=== PATIENT | female | born 1970 | race Caucasian/White ===

== ENCOUNTER 2018-09-06 18:29 | Outpatient (REF) | payer SELFPAY ==
[2018-09-06 21:20] LABS: Abs Immature Grans 0.02 k/cumm (0.0-0.09); Absolute Basophil Count 0.03 k/cumm (0.0-0.2); Absolute Eosinophil Count 0.19 k/cumm (0.0-0.7); Absolute Lymphocyte Count 3.27 k/cumm (1.2-3.4); Absolute Monocyte Count 0.74 k/cumm (0.11-0.7); Basophils % 0.3; Eosinophils % 1.7; HCT 37.4 % (36.0-46.0); HGB 12.3 g/dL (12.0-15.5); Immature Grans % 0.2; Mean Corp. HGB Concentration 32.9 g/dL (32.0-36.0); Mean Corpuscular Hemoglobin 26.2 pg (27.0-33.0); Mean Corpuscular Volume 79.7 fL (80-95); Mean Platelet Volume 10.1 fL (8.0-11.0); Monocytes % 6.6; Neutrophils % 62.2; Platelet Count 371 x1000/uL (130-400); RBC 4.69 m/cumm (4.00-5.20); RBC Distribution Width 13.7 % (11.7-14.6); White Blood Cell Count 11.26 k/cumm (4.4-10.8)
[2018-09-06 21:47] LABS: ALT 23 U/L (12-78); AST 12 U/L (15-37); Albumin 3.6 g/dL (3.4-5.0); Alkaline Phosphatase 100 U/L (46-116); Anion Gap 7.8 mmol/L (3-11); BUN 15 mg/dL (7-18); Bilirubin, Total 0.3 mg/dL (0.2-1.0); CO2 28.2 mmol/L (21.0-32.0); CREATININE 0.97 mg/dL (0.55-1.02); Calcium 9.1 mg/dL (8.5-10.1); Chloride 99 mmol/L (98-107); Cholesterol 163 mg/dL (50-200); Glucose 238 mg/dL (70-100); HDL Cholesterol 47 mg/dL (40-60); LDL CHOLESTEROL 80 mg/dL (<100); Potassium 3.9 mmol/L (3.5-5.1); Sodium 135 mmol/L (136-145); TSH (W/Ref FT4) 2.48 uIU/mL (0.358-3.74); Total Protein 7.6 g/dL (6.4-8.2); Triglyceride 205 mg/dL (30-150)
[2018-09-10 11:24] LABS: FSH 7.2 mIU/ml; LH 5.6 mIU/ml
== END 2018-09-06 18:49 ==
LOC: NCHCN 18:29
PROVIDERS: PCP Family Medicine; Visit Provider Family Medicine
DX: E11.9 Type 2 diabetes mellitus without complications (principal); I10 Essential (primary) hypertension; Z00.00 Encounter for general adult medical examination without abnormal findings
CPT/HCPCS: 80053; 80061; 83721; 83001; 83002; 84443; 85025

== ENCOUNTER 2019-04-16 16:30 | Outpatient (REF) | payer BC, SELFPAY ==
[2019-04-16 21:59] LABS: Microalb ug/mg Crea 2.9 ug/mg Cr
== END 2019-04-16 16:50 ==
LOC: NCHCN 16:30
PROVIDERS: PCP Nurse Practitioner Family; Visit Provider Nurse Practitioner Family
DX: E11.9 Type 2 diabetes mellitus without complications (principal); I10 Essential (primary) hypertension
CPT/HCPCS: 82043; 82570

== ENCOUNTER 2019-05-13 14:56 | Outpatient (REF) | payer BC, SELFPAY ==
[2019-05-13 21:23] LABS: HCT 28.2 % (36.0-46.0); HGB 8.5 g/dL (12.0-15.5); Mean Corp. HGB Concentration 30.1 g/dL (32.0-36.0); Mean Corpuscular Hemoglobin 24.1 pg (27.0-33.0); Mean Corpuscular Volume 79.9 fL (80-95); Mean Platelet Volume 10.3 fL (8.0-11.0); Platelet Count 428 x1000/uL (130-400); RBC 3.53 m/cumm (4.00-5.20); RBC Distribution Width 14.8 % (11.7-14.6); White Blood Cell Count 7.96 k/cumm (4.4-10.8)
== END 2019-05-13 15:16 ==
LOC: NCHCN 14:56
PROVIDERS: PCP Nurse Practitioner Family; Visit Provider Nurse Practitioner Family
DX: N93.8 Other specified abnormal uterine and vaginal bleeding (principal); D50.9 Iron deficiency anemia, unspecified
CPT/HCPCS: 85027

== ENCOUNTER 2019-07-16 18:00 | Outpatient (REF) | payer BC, SELFPAY ==
[2019-07-16 21:35] LABS: HCT 37.8 % (36.0-46.0); HGB 11.5 g/dL (12.0-15.5); Mean Corp. HGB Concentration 30.4 g/dL (32.0-36.0); Mean Corpuscular Hemoglobin 23.4 pg (27.0-33.0); Mean Corpuscular Volume 76.8 fL (80-95); Mean Platelet Volume 10.1 fL (8.0-11.0); Platelet Count 409 x1000/uL (130-400); RBC 4.92 m/cumm (4.00-5.20); RBC Distribution Width 15.4 % (11.7-14.6); White Blood Cell Count 7.74 k/cumm (4.4-10.8)
[2019-07-16 22:40] LABS: Hemoglobin A1C 8.3 % (4.5-6.2)
[2019-07-16 23:03] LABS: Iron 26 ug/dL (50-175)
[2019-07-16 23:30] LABS: TSH 1.64 uIU/mL (0.36-3.74); Vitamin B12 825 pg/mL (193-986)
== END 2019-07-16 18:20 ==
LOC: NCHCO 18:00
PROVIDERS: PCP Nurse Practitioner Family; Visit Provider Nurse Practitioner Family
DX: E11.9 Type 2 diabetes mellitus without complications (principal); I10 Essential (primary) hypertension; D50.9 Iron deficiency anemia, unspecified
CPT/HCPCS: 85027; 82607; 83036; 83540; 84443

== ENCOUNTER 2019-10-22 00:41 | Outpatient (REF) | payer OTHER, SELFPAY | END 2019-10-22 01:01 | LOC: NCHCN 00:41 | PROVIDERS: PCP Nurse Practitioner Family; Visit Provider Nurse Practitioner Family | DX: J02.9 Acute pharyngitis, unspecified (principal) | CPT/HCPCS: 87070 ==

== ENCOUNTER 2020-04-30 13:35 | Outpatient (REF) | payer OTHER, SELFPAY ==
[2020-04-30 20:38] LABS: HCT 39.7 % (36.0-46.0); HGB 12.3 g/dL (11.2-15.7); MCH 26.1 pg (27.0-33.0); MCV 84.3 fL (80-95); MPV 10.1 fL (8.0-11.0); Platelet Count 354 10^3/uL (130-400); RBC 4.71 10^6/uL (3.93-5.22); RDW 13.4 % (11.7-14.6); RDW-SD 41.2 fL; WBC 8.97 10^3/uL (4.4-10.8)
[2020-04-30 20:52] LABS: Anion Gap 8.6 mmol/L (3-11); BUN 7 mg/dL (7-18); CO2 30.4 mmol/L (21.0-32.0); CREATININE 0.79 mg/dL (0.55-1.02); Calcium 9.3 mg/dL (8.5-10.1); Chloride 102 mmol/L (98-107); Glucose 112 mg/dL (74-106); Potassium 4.3 mmol/L (3.5-5.1); Sodium 141 mmol/L (136-145)
[2020-04-30 21:20] LABS: Hemoglobin A1C 7.1 % (<5.7)
== END 2020-04-30 13:55 ==
LOC: NCHCN 13:35
PROVIDERS: PCP Nurse Practitioner Family; Visit Provider Nurse Practitioner Family
DX: E11.9 Type 2 diabetes mellitus without complications (principal); I10 Essential (primary) hypertension
CPT/HCPCS: 80048; 85027; 83036

== ENCOUNTER 2020-07-14 13:06 | Outpatient (REF) | payer OTHER, SELFPAY ==
[2020-07-14 21:41] LABS: COMMENT (LAB VIEW ONLY) 98.07 mg/dL; Microalb ug/mg Crea 4.6 ug/mg Cr
== END 2020-07-14 13:26 ==
LOC: NCHCN 13:06
PROVIDERS: PCP Nurse Practitioner Family; Visit Provider Nurse Practitioner Family
DX: E11.9 Type 2 diabetes mellitus without complications (principal); E66.9 Obesity, unspecified; I10 Essential (primary) hypertension; F41.8 Other specified anxiety disorders
CPT/HCPCS: 82043; 82570

== ENCOUNTER 2021-10-12 15:19 | Outpatient (REF) | payer OTHER, SELFPAY ==
[2021-10-12 21:23] LABS: BUN 13 mg/dL (7-18); CREATININE 0.9 mg/dL (0.55-1.02); Calcium 8.9 mg/dL (8.5-10.1); Chloride 101 mmol/L (98-107); Glucose 223 mg/dL (74-106); Potassium 4.2 mmol/L (3.5-5.1); Sodium 137 mmol/L (136-145)
[2021-10-12 21:25] LABS: COMMENT (LAB VIEW ONLY) 316.45 mg/dL; Microalb ug/mg Crea 5.4 ug/mg Cr
[2021-10-12 21:36] LABS: HCT 37.9 % (36.0-46.0); HGB 11.1 g/dL (11.2-15.7); MCH 22.2 pg (27.0-33.0); MCHC 29.3 % (32.0-36.0); MPV 9.9 fL (8.0-11.0); Platelet Count 385 10^3/uL (130-400); RBC 4.99 10^6/uL (3.93-5.22); RDW 14.6 % (11.7-14.6); RDW-SD 39.6 fL; WBC 8.75 10^3/uL (4.4-10.8)
[2021-10-12 21:55] LABS: Hemoglobin A1C 10.5 % (<5.7)
== END 2021-10-12 15:20 | disposition home or self-care (01) ==
LOC: NCHCN 15:19
PROVIDERS: PCP Nurse Practitioner Family; Visit Provider Nurse Practitioner Family
DX: E11.9 Type 2 diabetes mellitus without complications (principal); I10 Essential (primary) hypertension; D50.9 Iron deficiency anemia, unspecified; M54.59 Other low back pain
CPT/HCPCS: 80048; 85027; 82043; 82570; 83036

== ENCOUNTER 2021-12-28 20:22 | Outpatient (REF) | payer OTHER, SELFPAY ==
[2021-12-30 11:44] LABS: COVID-19 RT-PCR UVMMC Result Negative (Negative)
== END 2021-12-28 20:23 | disposition home or self-care (01) ==
LOC: NCHCN 20:22
PROVIDERS: PCP Nurse Practitioner Family; Visit Provider Nurse Practitioner Family
DX: J06.9 Acute upper respiratory infection, unspecified (principal); Z20.822 Contact with and (suspected) exposure to COVID-19
CPT/HCPCS: U0003

== ENCOUNTER 2022-08-01 16:06 | Outpatient (REF) | payer OTHER, SELFPAY ==
[2022-08-01 22:05] LABS: COMMENT (LAB VIEW ONLY) 206.18 mg/dL; Microalb ug/mg Crea 2.4 ug/mg Cr
== END 2022-08-01 16:07 | disposition home or self-care (01) ==
LOC: NCHCN 16:06
PROVIDERS: PCP Nurse Practitioner Family; Visit Provider Nurse Practitioner Family
DX: E11.9 Type 2 diabetes mellitus without complications (principal)
CPT/HCPCS: 82043; 82570

== ENCOUNTER 2023-02-06 16:48 | Outpatient (REF) | payer OTHER, SELFPAY ==
--- OUTSIDE RECORDS SUMMARY | 2023-02-06 16:53 | XMS_ITS | CCD ---
Author Name Unknown Address [address] [place] [address] [phone] Organization Unknown Address [address] [place] [address] [phone] Care Team Providers Care Parquet Floor Layer Name Role Phone QAMAR URBAN Attending Physician [phone] JENNA ZARAGOZA Er Physician [phone] CARSON Sandhu Registered Nurse [phone] Vital Signs Vital Sign Value Unit Date/Time Recent/Initial ? BMI (Body Mass Index) 34.97 kg/m^2 10/13/2022 14: 39 Initial VS Weight Measured 230 lbs 10/13/2022 14:39 Ini tial VS Height 68 in 10/13/2022 14:39 Initial VS BSA (Body Surface Area) 2.24 m^2 10/13/2022 1 4:39 Initial VS BP Systolic 131 mmHg 10/13/2022 14:39 Initial VS BP Diastolic 75 mmHg 10/13/2022 14:39 Initia l VS Respiratory Rate 16 bpm 10/13/2022 14:39 In itial VS Heart Rate 67 bpm 10/13/2022 14:39 Initial VS O2 % BldC Oximetry 99 % 10/13/2022 14:39 Initial VS Body Temperature 36.4 degrees 10/13/2022 14:39 In itial VS BP Systolic 119 mmHg 10/13/2022 16:47 Most Re cent VS BP Diastolic 82 mmHg 10/13/2022 16:47 Most R ecent VS Respiratory Rate 18 bpm 10/13/2022 16:[address] Recent VS Heart Rate 60 bpm 10/13/2022 16:47 Most Rec ent VS O2 % BldC Oximetry 96 % 10/13/2022 16:47 Most Recent VS Body Temperature 36.7 degrees 10/13/2022 16:[address] Recent VS Allergies Allergy Code Allergy Type Reaction Status No Known Drug Allergies 0 No known drug allergies Active Procedures Unknown or Not Available. History of Immunizations Unknown or Not Available. Problems Problem Code Start Date Resolved Date Status Diabetes 08599039 Active High cholesterol 17524683 Active Anxiety 53150494 Active Results Unknown or Not Available. Active Medications Unknown or Not Available. Medications Administered During Visit Unknown or Not Available. Encounters Encounter Diagnosis Diagnosis Code Start Date Pain of left lower leg [id number] 3 Social History Smoking Status Code Start Date End Date Never smoker 304553754 Patient Decision Aids Unknown or Not Available. Discharge Instructions You were admitted to [facility] on 10/13/2022 14:30 with a principal diagnosis of Pain in left lower leg You were discharged from [facility] on 10/13/2022 16:50 Should you have any questions prior to discharge, please contact a member of your healthcare team. If you have left the hospital and have any questions, please contact your primary care physician. Chief Complaint and Reason For Visit Chief Complaint Date of Onset POTENTIAL BLOOD CLOT IN LEG 10/13/2022 Function Status Unknown or Not Available. Plan of Care Unknown or Not Available. Referral/Transition of Care Unknown or Not Available.
--- OUTSIDE RECORDS SUMMARY | 2023-02-06 16:54 | XMS_ITS | CCD ---
Author Name Unknown Address [address] [place] [address] [phone] Organization Unknown Address [address] [place] [address] [phone] Care Team Providers Care Router Setter Name Role Phone SHELBI BLANKENSHIP MD Attending Physician [phone] Vital Signs Unknown or Not Available. Allergies Unknown or Not Available. Procedures Unknown or Not Available. History of Immunizations Unknown or Not Available. Problems Problem Code Start Date Resolved Date Status Diabetes 45055237 Active High cholesterol 09511853 Active Anxiety 26305432 Active Results Unknown or Not Available. Active Medications Unknown or Not Available. Medications Administered During Visit Unknown or Not Available. Encounters Encounter Diagnosis Diagnosis Code Start Date Calcific tendinitis of right shoulder M7531 04/09/2021 Social History Smoking Status Code Start Date End Date Never smoker 840215309 Patient Decision Aids Unknown or Not Available. Discharge Instructions You were admitted to [facility] 01 on 04/09/2021 08:30 with a principal diagnosis of Calcific tendinitis of right shoulder You were discharged from [facility] 01 on 06/02/2021 11:33 Should you have any questions prior to discharge, please contact a member of your healthcare team. If you have left the hospital and have any questions, please contact your primary care physician. Chief Complaint and Reason For Visit Unknown or Not Available. Function Status Unknown or Not Available. Plan of Care Unknown or Not Available. Referral/Transition of Care Unknown or Not Available.
--- OUTSIDE RECORDS SUMMARY | 2023-02-06 16:54 | XMS_ITS | CCD ---
Author Name Unknown Address [address] [place] [address] [phone] Organization Unknown Address [address] [place] [address] [phone] Care Team Providers Care Leather Goods Sales Representative Name Role Phone SOULEYMANE NOGUEIRA Attending Physician [phone] SOULEYMANE NOGUEIRA Rounding (Secondary) Physician [phone] Vital Signs Unknown or Not Available. Allergies Allergy Code Allergy Type Reaction Status No Known Drug Allergies 0 No known drug allergies Active Procedures Unknown or Not Available. History of Immunizations Unknown or Not Available. Problems Problem Code Start Date Resolved Date Status Diabetes 97707049 Active High cholesterol 36971105 Active Anxiety 80632765 Active Results Unknown or Not Available. Active Medications Unknown or Not Available. Medications Administered During Visit Unknown or Not Available. Encounters Encounter Diagnosis Diagnosis Code Start Date Pain in right shoulder U18194 3 Social History Smoking Status Code Start Date End Date Never smoker 594603986 Patient Decision Aids Unknown or Not Available. Discharge Instructions You were admitted to [facility] on 11/07/2022 11:20 with a principal diagnosis of Pain in right shoulder You were discharged from [facility] on 11/07/2022 00:00 Should you have any questions prior to [...]
--- OUTSIDE RECORDS SUMMARY | 2023-02-06 16:54 | XMS_ITS | CCD ---
Author Name Unknown Address [address] [place] [address] [phone] Organization Unknown Address [address] [place] [address] [phone] Care Team Providers Care Tire Groover Name Role Phone SHELBI BLANKENSHIP Attending Physician [phone] Vital Signs Unknown or Not Available. Allergies Unknown or Not Available. Procedures Procedure Code Procedure Type Date Arthrocentesis Aspir&/Inj Major Jt/Bursa w/US 06003 CPT 07/14/2021 History of Immunizations Unknown or Not Available. Problems Problem Code Start Date Resolved Date Status Diabetes 38497780 Active High cholesterol 46912543 Active Anxiety 23787487 Active Results Unknown or Not Available. Active Medications Unknown or Not Available. Medications Administered During Visit Unknown or Not Available. Encounters Encounter Diagnosis Diagnosis Code Start Date Calcific tendinitis of right shoulder M7531 07/14/2021 Social History Smoking Status Code Start Date End Date Never smoker 936673167 Patient Decision Aids Unknown or Not Available. Discharge Instructions You were admitted to [facility] on 07/14/2021 11:16 with a principal diagnosis of Calcific tendinitis of right shoulder You had the following procedures done:Arthrocentesis Aspir&/Inj Major Jt/Bursa w/US You were discharged from [facility] on 07/14/2021 11:16 Should you have any questions prior to discharge, please contact a member of your healthcare team. If you have left the hospital and have any questions, please contact your primary care physician. Chief Complaint and Reason For Visit Chief Complaint Date of Onset R SHLDR CALCIFIC TENDINITIS Function Status Unknown or Not Available. Plan of Care Unknown or Not Available. Referral/Transition of Care Unknown or Not Available.
--- OUTSIDE RECORDS SUMMARY | 2023-02-06 16:54 | XMS_ITS | CCD ---
Author Name Unknown Address [address] [place] [address] [phone] Organization Unknown Address [address] [place] [address] [phone] Care Team Providers Care Loader Malt [employer] Name Role Phone SHELBI BLANKENSHIP Attending Physician [phone] SHELBI BLANKENSHIPing (Secondary) Physician [phone] Vital Signs Unknown or Not Available. Allergies Unknown or Not Available. Procedures Unknown or Not Available. History of Immunizations Unknown or Not Available. Problems Problem Code Start Date Resolved Date Status Diabetes 75245226 Active High cholesterol 70287390 Active Anxiety 80680774 Active Results Unknown or Not Available. Active Medications Unknown or Not Available. Medications Administered During Visit Unknown or Not Available. Encounters Encounter Diagnosis Diagnosis Code Start Date Idiopathic osteoarthritis [id number] 2020 Social History Smoking Status Code Start Date End Date Never smoker 258716304 Patient Decision Aids Unknown or Not Available. Discharge Instructions You were admitted to on 08/04/2021 08:21 with a principal diagnosis of Primary osteoarthritis, right shoulder You were discharged from on 08/04/2021 00:00 Should you have any questions prior [...]
--- OUTSIDE RECORDS SUMMARY | 2023-02-06 16:54 | XMS_ITS | CCD ---
Author Name Unknown Address [address] [place] [address] [phone] Organization Unknown Address [address] [place] [address] [phone] Care Team Providers Care Senior Electrical Designer Name Role Phone SHELBI BLANKENSHIP MD Attending Physician [phone] Vital Signs Unknown or Not Available. Allergies Unknown or Not Available. Procedures Unknown or Not Available. History of Immunizations Unknown or Not Available. Problems Problem Code Start Date Resolved Date Status Diabetes 36946631 Active High cholesterol 10932167 Active Anxiety 99897298 Active Results Unknown or Not Available. Active Medications Unknown or Not Available. Medications Administered During Visit Unknown or Not Available. Encounters Encounter Diagnosis Diagnosis Code Start Date Calcific tendinitis of right shoulder [id number] 97348 04/01/2021 Social History Smoking Status Code Start Date End Date Never smoker 536284863 Patient Decision Aids Unknown or Not Available. Discharge Instructions You were admitted to [facility] on 04/01/2021 13:17 with a principal diagnosis of Calcific tendinitis of right shoulder You were discharged from [facility] on 04/01/2021 13:17 Should you have any questions prior to [...]
--- OUTSIDE RECORDS SUMMARY | 2023-02-06 16:54 | XMS_ITS | CCD ---
Author Name Unknown Address [address] [place] [address] [phone] Organization Unknown Address [address] [place] [address] [phone] Care Team Providers Care Perl Programmer Name Role Phone AARON RYLAN Marissa Attending Physician [phone] Vital Signs Unknown or Not Available. Allergies Unknown or Not Available. Procedures Unknown or Not Available. History of Immunizations Unknown or Not Available. Problems Problem Code Start Date Resolved Date Status Diabetes 64083943 Active High cholesterol 15144070 Active Anxiety 88761999 Active Results COMPREHENSIVE METABOLIC PANE L ([facility]) - Collect Date/Time: 12/31/2021 15:48 Test Name Code Test Result Test Units Test Ref Rang e GLUCOSE 2345-7 214 mg/dL L=70 H=116 BUN 3094-0 11 mg/dL L=6 H=25 CREATININE 2160-0 0.86 mg/dL L=0.51 H=0.95 SODIUM SERUM 2951-2 137 mmol/L L=136 H=145 POTASSIUM SERUM 2823-3 3.4 mmol/L L=3.4 H=5 .2 CHLORIDE SERUM 2075-0 100 mmol/L L=96 H=110 CARBON DIOXIDE (CO2) 2028-9 26 mmol/L L=22 H=34 ANION GAP 19199-2 10.6 mmol/L CALCIUM SERUM 04507-4 8.9 mg/dL L=8.2 H=10. 2 BILIRUBIN TOTAL 1975-2 0.4 mg/dL L=0.0 H=1 .3 ALK. PHOS. 6768-6 95 U/L L=46 H=116 SGOT (AST) 1920-8 52 U/L L=15 H=37 SGPT (ALT) 1742-6 51 U/L L=12 H=78 TOTAL PROTEIN 2885-2 7.5 gm/dL L=6.0 H=8.0 ALBUMIN 1751-7 3.1 gm/dL L=3.4 H=5.0 AGE 51 years eGFR (non-Afr.Amer.) 04184-4 70 mL/min eGFR (Afr-Dutch) 34579-4 84 mL/min CBC W/ DIFFERENTIAL* - Kate ct Date/Time: 12/31/2021 15:48 Test Name Code Test Result Test Units Test Ref Rang e WBC 6690-2 7.15 th/cmm L=5.00 H=10.00 NEUT % 57.5 % L=40.0 H=80.0 LYMPH % 30.5 % L=10.0 H=50.0 MONO % 55441-3 5.9 % L=2.0 H=12.0 EOS % 5.2 % L=0.0 H=8.0 BASO % 0.6 % L=0.0 H=3.0 IG % 2514-8 0.3 % L=0.0 H=1.1 NRBC % 39922-1 0.0 % L=0.0 H=0.0 NEUT abs count 751-8 4.1 th/cmm L=1.6 H=8. 4 LYMPH abs count 731-0 2.2 th/cmm L=1.5 H=4 .0 MONO abs count 742-7 0.4 th/cmm L=0.2 H=1. 0 EOS abs count 711-2 0.4 th/cmm L=0.0 H=0.5 BASO abs count 704-7 0.0 th/cmm L=0.0 H=0. 2 IG abs count 29336-7 0.0 th/cmm L=0.0 H=0.1 NRBC abs count 94987-9 0.0 mil/cmm L=0.0 H=0. 0 RBC 789-8 5.00 mil/cmm L=3.90 H=5.40 HEMOGLOBIN 718-7 13.2 gm/dL L=12.0 H=16.0 HEMATOCRIT 4544-3 40 % L=37 H=47 MCV 787-2 80 fL L=82 H=92 MCH 785-6 26.4 pg L=27.0 H=31.0 MCHC 786-4 33.1 % L=32.0 H=36.0 RDW-SD 788-0 47.2 fL L=39.0 H=49.0 PLATELET COUNT 777-3 290 th/cmm L=150 H=45 0 Active Medications Unknown or Not Available. Medications Administered During Visit Unknown or Not Available. Encounters Encounter Diagnosis Diagnosis Code Start Date Other nonspecific abnormal finding of lung field R918 12/31/2021 Social History Smoking Status Code Start Date End Date Never smoker 503333680 Patient Decision Aids Unknown or Not Available. Discharge Instructions You were admitted to [facility] on 12/31/2021 15:28 with a principal diagnosis of Other nonspecific abnormal finding of lung field You had the following tests done:CBC W/ DIFFERENTIAL*COMPREHENSIVE METABOLIC PANEL (CMP) You were discharged from [facility] on 12/31/2021 15:28 Should you have any questions prior to [...]
[2023-02-06 21:53] LABS: Hemoglobin A1C 7.2 % (<5.7)
[2023-02-06 22:05] LABS: ALT 68 U/L (14-59); AST 41 U/L (15-37); Albumin 3.6 g/dL (3.4-5.0); Alkaline Phosphatase 99 U/L (46-116); Anion Gap 9.4 mmol/L (3-11); BUN 11 mg/dL (7-18); Bilirubin, Total 0.5 mg/dL (0.2-1.0); CO2 28.6 mmol/L (21.0-32.0); CREATININE 0.9 mg/dL (0.55-1.02); Calcium 9.3 mg/dL (8.5-10.1); Calculated LDL 61 mg/dL (<100); Chloride 102 mmol/L (98-107); Cholesterol 156 mg/dL (<200); Estimated GFR 76.92 (mL/min/1.73m2); Glucose 174 mg/dL (74-106); HDL Cholesterol 67 mg/dL (40-60); Sodium 140 mmol/L (136-145); TSH 1.18 uIU/mL (0.36-3.74); Total Protein 7.8 g/dL (6.4-8.2); Triglyceride 144 mg/dL (<150)
== END 2023-02-06 16:49 | disposition home or self-care (01) ==
LOC: NCHCN 16:48
PROVIDERS: PCP Nurse Practitioner Family; Visit Provider Nurse Practitioner Family
DX: E11.9 Type 2 diabetes mellitus without complications (principal); I10 Essential (primary) hypertension; Z13.220 Encounter for screening for lipoid disorders
CPT/HCPCS: 80053; 80061; 83036; 84443

== ENCOUNTER 2023-10-26 12:48 | Outpatient (REF) | payer OTHER, SELFPAY ==
[2023-10-26 14:46] LABS: HCT 41.6 % (36.0-46.0); HGB 13.9 g/dL (11.2-15.7); MCH 27.7 pg (27.0-33.0); MCHC 33.4 % (32.0-36.0); MCV 83 fL (80-95); MPV 9.8 fL (8.0-11.0); Platelet Count 328 10^3/uL (130-400); RBC 5.01 10^6/uL (3.93-5.22); RDW 13.6 % (11.7-14.6); WBC 9.62 10^3/uL (4.4-10.8)
[2023-10-26 15:03] LABS: ALT 42 U/L (14-59); AST 30 U/L (15-37); Albumin 3.6 g/dL (3.4-5.0); Alkaline Phosphatase 92 U/L (46-116); Anion Gap 10.9 mmol/L (3-11); BUN 17 mg/dL (7-18); Bilirubin, Total 0.4 mg/dL (0.2-1.0); CO2 26.1 mmol/L (21.0-32.0); CREATININE 0.8 mg/dL (0.55-1.02); Calcium 9.9 mg/dL (8.5-10.1); Calculated LDL 52 mg/dL (<100); Chloride 106 mmol/L (98-107); Cholesterol 134 mg/dL (<200); Glucose 87 mg/dL (74-106); HDL Cholesterol 72 mg/dL (40-60); Potassium 4.1 mmol/L (3.5-5.1); Sodium 143 mmol/L (136-145); Total Protein 7.7 g/dL (6.4-8.2); Triglyceride 53 mg/dL (<150)
[2023-10-26 15:20] LABS: COMMENT (LAB VIEW ONLY) 212.55 mg/dL; Microalb ug/mg Crea 4.7 ug/mg Cr
[2023-10-26 16:29] LABS: Hemoglobin A1C 6.1 % (<5.7)
== END 2023-10-26 12:49 | disposition home or self-care (01) ==
LOC: NCHCN 12:48
PROVIDERS: PCP Nurse Practitioner Family; Referring Provider Nurse Practitioner Family; Visit Provider Nurse Practitioner Family
DX: Z86.2 Personal history of diseases of the blood and blood-forming organs and certain disorders involving the immune mechanism (principal); E11.9 Type 2 diabetes mellitus without complications; E78.5 Hyperlipidemia, unspecified
CPT/HCPCS: 80053; 80061; 85027; 82043; 82570; 83036

== ENCOUNTER 2024-09-05 09:52 | Outpatient (REF) | payer OTHER, SELFPAY ==
--- OUTSIDE RECORDS SUMMARY | 2024-09-05 09:56 | XMS_ITS | Clinical Summary ---
[place] [address] Care Team Providers Care Electrical Parts Reconditioner Name Role Phone Unavailable Primary Care Provider Unavailabl e Social History Tobacco Use Types Packs/Day Years Used Date Smoking Tobacco: Never Assessed Sex and Gender Information Value Date Recorded Sex Assigned at Not on file Gender Identity Not on file Sexual Orientation Not on file Plan of Treatment Health Maintenance Due Date Last Done Comments CT Colonography 1970 Colonoscopy 1970 Colorectal Cancer Screening 1970 FIT DNA 1970 FIT 1970 Sigmoidoscopy (10 year) with FIT yearly 1970 Sigmoidoscopy 1970 HIV screen 1988 Hepatitis C Screening 1988 Hepatitis B vaccine (0-59 yrs) (1) 1989 Tetanus/Diphtheria/Pertussis Vaccines (1 - Tdap) 10/28 HPV test 2000 PAP Smear 2000 Breast Cancer Share Decision Needed 2010 Breast Cancer screening 2010 Zoster vaccine (1 of 2) 2020 Covid-19 Vaccine ( - season) 2024 Influenza (Flu) vaccine (1 o f 1 - Influenza standard series) 05/05/2024
--- OUTSIDE RECORDS SUMMARY | 2024-09-05 09:56 | XMS_ITS ---
Author Organization Unknown Address [address] [place] [address] [phone] Phone Care Team Providers Care Afterschool Babysitter Name Role Phone PATTIE MARIO Attending Unavailable MELINDA Oakes Primary Unavailable Social History Type Status Start Date End Date Code Code Syst em Smoking History Never smoker (Never Smoked) 481413312 SNOMED CT Sex Female Medications Medication Start Date End Date Route Frequency Dose Code Code System Medication Instructions Home Meds Aspir Low 81MG Oral Tablet, Enteric Coated 01/03/2019 10/13/2022 ORAL DAILY 81 MILLIGRAMS 0768101 RxNorm TAKE 81 MILLIGRAMS ORAL DAILY LANTUS 100U/1ML SUBCUTANEO US SOLUTI 01/03/2019 10/13/2022 SUBCUTA NEOUS EVERY EVENING 75 UNIT RxNorm INJECT 75 UNIT SUBCUTANEOUS EVERY EVENING LISINOPRIL 01/03/2019 10/13/2022 ORAL TWICE A DAY 1 TABLET RxNorm TAKE 1 TABLET ORAL TWICE A DAY PRAVASTATI N 01/03/2019 10/13/2022 ORAL DAILY 1 TABLET RxNorm TAKE 1 TABLET ORAL DAILY metFORMIN HCl 1000MG Oral Tablet, Extended Release 01/03/2019 10/13/2022 ORAL DAILY 7964151 RxNorm TAKE 000 MILLIGRAMS ORAL DAILY Assessment You had the following problems:DIABETESHIGH CHOLESTEROLANXIETY Hospital Discharge Instructions Should you have any questions prior to discharge, please contact a member of your healthcare team. If you have left the hospital and have any questions, please contact your primary care physician. Reason For Referral No Data Found Problems Problem Start Date Resolved Date Status Code Code System DIABETES active 01084498 SNOMED-CT HIGH CHOLESTEROL active 60385053 SNO MED-CT ANXIETY active 26960974 SNOMED-CT Allergies and Adverse Reactions Allergy Substance Reaction Severity Start Date Concern Status Co de Code System No Known Drug Allergies Active 172685928 SNOMED-CT Plan of Treatment MRI LOWER EXT W/O CONTRAST 01/17/2024 US ABDOMEN LIMITED 1 ORGAN 02/22/2023 X-RAY 12/31/2021 X-RAY 07/09/2021 US GUIDED NEEDLE BIOPSY 07/14/2021 MRI UPPER EXT JOINT W/O CONTRAST 2020 Encounters Encounter Diagnosis Start Date Code Code Sys tem Idiopathic osteoarthritis 08/04/2021 365132609 SN OMED-CT Personal Care Team Section Performer Name Performer Role Active Date Inactive Da te
--- OUTSIDE RECORDS SUMMARY | 2024-09-05 09:56 | XMS_ITS | Encounter Summary ---
Author Organization [facility] [place] [address] Care Team Providers Care Manufacturing Engineer Paint Name Role Phone Unavailable Primary Care Provider Unavailabl e Encounter Details Date Type Department Care Team (Late st Contact Info) Description 05/09/2024 Interpretation Only [facility] in [facility] [address] [place] [phone] Heena Mccray APRN [address] [place], [place] [phone] Social History Tobacco Use Types Packs/Day Years Used Date Smoking Tobacco: Never Assessed Sex and Gender Information Value Date Recorded Sex Assigned at Not on file Gender Identity Not on file Sexual Orientation Not on file documented as of this encounter Plan of Treatment Not on file documented as of this encounter Procedures Procedure Name Priority Date/Time Associated Diagnosis Comments XR RIGHT RIBS WITH PA CHEST STAT 05/09/2024 1:04 PM EDT documented in this encounter Results * XR Ribs AP, Oblique & PA Chest Right (Generic) (05/09/2024 1:04 PM EDT) PT CLASS O RAD ADMITDTTM [id number] RAD PT RAD INFO [id number]^WOHLBE RG^HEENA^B RAD EXAM DESC XRRIBPCHXR^XR RIBS UNILAT W PA CHEST 3V RT^RIS RAD WORKSTATION ID [id number] RAD Anatomical Region Laterality Modality Chest Right Radiographic Crista ging Impressions 05/09/2024 1:22 PM EDT 1. ??No rib fracture 2. ??No acute cardiopulmonary abnormality Thank you for letting us participate in the care of this patient. ??If you are a health care provider and have any questions regarding this report, please contact the number below. ??For patients who have questions please contact the health medicare biller that requested your imaging first. ? Electronically signed by: Farhat Herbert MD, [facility] ([phone]), at 05/09/2024 1:22 PM Narrative 05/09/2024 1:22 PM EDT EXAMINATION: XR RIBS UNILAT W PA CHEST 3V RT CLINICAL HISTORY: ??Reason for Chest: ??RT RIB PAIN ??Add'l Info: TECHNIQUE: 3 views RIGHT ribs and chest COMPARISON: Chest radiograph 12/31/2021. FINDINGS: A BB markers indicating area of clinical concern. ??No displaced rib fracture or other acute osseous finding. The bilateral lungs are clear. There are no pleural effusions or pneumothoraces. The trachea is midline. The hilar and mediastinal structures are unremarkable. The cardiomediastinal silhouette is within normal limits. Procedure Note Farhat Herbert MD - 05/09/2024 EXAMINATION: XR RIBS UNILAT W PA CHEST 3V RT CLINICAL HISTORY: Reason for Chest: RT RIB PAIN Add'l Info: TECHNIQUE: 3 views RIGHT ribs and chest COMPARISON: Chest radiograph 12/31/2021. FINDINGS: A BB markers indicating area of clinical concern. No displaced ribfracture or other acute osseous finding. The bilateral lungs are clear. There are no pleural effusions orpneumothoraces. The trachea is midline. The hilar and mediastinal structures are unremarkable. Thecardiomediastinal silhouette is within normal limits. IMPRESSION 1. No rib fracture 2. No acute cardiopulmonary abnormality Thank you for letting us participate in the care of this patient. If youare a health care provider and have any questions regarding this report,please contact the number below. For patients who have questions please contactthe health medicare biller that requested your imaging first. Electronically signed by: Farhat Herbert MD, [facility]([phone]), at 05/09/2024 1:22 PM Heena Mccray ADMINISTRATIVE SERVICES DIRECTOR IMG DX ORDERABLES documented in this encounter Visit Diagnoses Not on filedocumented in this encounter
--- OUTSIDE RECORDS SUMMARY | 2024-09-05 09:57 | XMS_ITS ---
Author Organization Unknown Address [address] [place] [address] [phone] Phone Care Team Providers Care Operations Controller Name Role Phone JERO COMER Attending Unavailable MELINDA Oakes Primary Unavailable Social History Type Status Start Date End Date Code Code Syst em Smoking History Never smoker (Never Smoked) 864944662 SNOMED CT Sex Female Assessment You had the following problems:DIABETESHIGH CHOLESTEROLANXIETY Hospital Discharge Instructions Should you have any questions prior to discharge, please contact a member of your healthcare team. If you have left the hospital and have any questions, please contact your primary care physician. Reason For Referral No Data Found Problems Problem Start Date Resolved Date Status Code Code System DIABETES active 09203346 SNOMED-CT HIGH CHOLESTEROL active 76608764 SNO MED-CT ANXIETY active 97983235 SNOMED-CT Allergies and Adverse Reactions Allergy Substance Reaction Severity Start Date Concern Status Co de Code System No Known Drug Allergies Active 679476545 SNOMED-CT Plan of Treatment MRI LOWER EXT W/O CONTRAST 01/17/2024 US ABDOMEN LIMITED 1 ORGAN 02/22/2023 X-RAY 12/31/2021 X-RAY 07/09/2021 US GUIDED NEEDLE BIOPSY 07/14/2021 MRI UPPER EXT JOINT W/O CONTRAST 2020 Encounters Encounter Diagnosis Start Date Code Code Sys tem 02/13/2023 [id number] SNOMED-CT Personal Care Team Section Performer Name Performer Role Active Date Inactive Da te
--- OUTSIDE RECORDS SUMMARY | 2024-09-05 09:57 | XMS_ITS ---
Author Organization Unknown Address [address] [place] [address] [phone] Phone Care Team Providers Care Certified Alcohol Drug Counselor Name Role Phone CARSON SHELTON Registered Nurse Unavailable WILMAR Spaulding Attending Unavailable NIK GOMEZ Unavailable MELINDA Oakes Primary Unavailable UNLISTED PROVIDER - REQUESTED Xhandoff Un available Results US DVT UNI LT* - Completed: 10/13/2022 16:07 LOINC: [place], [place] [address] PACS OYSTER CULLER REPORT Patient Name: STONE DONALD MRN: Sex: : Age: [id number] F 1970 51 Account: Accession: Admit: StayType: [id number] 10/13/2022 E/R Ordered: Order ID: Submitted: Ordering Provider: 10/13/2022 15:02 [id number] QAMAR MOURA Completed: Technologist: Resulted: 10/13/2022 16:07 [facility] 10/13/2022 16:24 Study Description: US DVT UNI LT* Study Reason: Swelling FINDINGS: The left common femoral, femoral and popliteal veins demonstrate normal compressibility, augmentation, and color Doppler. The posterior tibial veins are patent. The saphenofemoral junction is unremarkable. There is no evidence of a Luciano cyst. The soft tissues are unremarkable. IMPRESSION: 1. No DVT. 2. Findings were discussed with Dr. Early on 10/13/2022. Report Digitally Signed by Ru Jeong on 10/13/2022 04:24 PM EST Social History Type Status Start Date End Date Code Code Syst em Smoking History Never smoker (Never Smoked) 044100395 SNOMED CT Sex Female Vital Signs Vital Sign Value Unit [place] Value [place] Unit Date/Time Recent/Initial? Code Code System Body Mass Index 34.97 kg/m2 10/13/2022 14:39 Initial 60593 -5 LOINC Systolic Blood Pressure 119 mm[Hg] 10/13/2022 16:47 Most Recent 8480- 6 LOINC Diastolic Blood Pressure 82 mm[Hg] 10/13/2022 16:47 Most Recent 8462- 4 LOINC Systolic Blood Pressure 131 mm[Hg] 10/13/2022 14:39 Initial 8480- 6 LOINC Diastolic Blood Pressure 75 mm[Hg] 10/13/2022 14:39 Initial 8462- 4 LOINC Body Surface Area 2.24 m2 10/13/2022 14:39 Initial 3140- 1 LOINC Height 172.720 0 cm 68.00 in 10/13/2022 14:39 Initial 8302- 2 LOINC O2 Saturation 96 % 2022 16:47 Most Recent 49376 -5 LOINC O2 Saturation 99 % 2022 14:39 Initial 46061 -5 LOINC Pulse 60.0 /min 10/13/2022 16:47 Most Recent 8867- 4 LOINC Pulse 67.0 /min 10/13/2022 14:39 Initial 8867- 4 LOINC Respiration 18 /min 10/13/19 16:47 Most Recent 9279- 1 LOINC Respiration 16 /min 10/13/19 14:39 Initial 9279- 1 LOINC Temperature 36.7 Maryam 98.1 F 10/13/19 16:47 Most Recent 8310- 5 LOINC Temperature 36.4 Maryam 97.5 F 02/09/20 23 14:39 Initial 8310- 5 [facility] Weight 104.33 kg 230.00 lbs 10/13/2022 14:39 Initial 38979 -7 [facility] Medications Medication Start Date End Date Route Frequency Dose Code Code System Medication Instructions Home Meds Aspir Low 81MG Oral Tablet, Enteric Coated 01/03/2019 10/13/2022 ORAL DAILY 81 MILLIGRAMS 3828560 RxNorm TAKE 81 MILLIGRAMS ORAL DAILY LANTUS [...] Tablet, Extended Release 01/03/2019 10/13/2022 ORAL DAILY 0754190 RxNorm TAKE 000 MILLIGRAMS ORAL DAILY Assessment [...] Date Status Code Code System DIABETES active 41432247 SNOMED-CT HIGH CHOLESTEROL active 48709633 SNO MED-CT ANXIETY active 95847862 SNOMED-CT Allergies and Adverse Reactions Allergy Substance Reaction Severity Start Date Concern Status Co de Code System No Known Drug Allergies Active 973483421 SNOMED-CT Plan of Treatment MRI LOWER EXT W/O CONTRAST 01/17/2024 US ABDOMEN LIMITED 1 ORGAN 02/22/2023 X-RAY 12/31/2021 X-RAY 07/09/2021 US GUIDED NEEDLE BIOPSY 07/14/2021 MRI UPPER EXT JOINT W/O CONTRAST 2020 Encounters Encounter Diagnosis Start Date Code Code Sys tem Pain of left lower leg 10/13/2022 013241527929610 SN OMED-CT Personal Care Team Section Performer Name Performer Role Active Date Inactive Da te
--- OUTSIDE RECORDS SUMMARY | 2024-09-05 09:57 | XMS_ITS ---
Author Organization Unknown Address [address] [place] [address] [phone] Phone Care Team Providers Care Fertilizing Machine Operator Name Role Phone JERO COMER Attending Unavailable MELINDA Oakes Primary Unavailable Results XR SHOULDER 2V OR MORE RT* - Completed: 11/07/2022 11:44 LOINC: [facility] [place], [place] [address] PACS STRAW HAT BRIM CUTTER OPERATOR REPORT Patient Name: STONE DONALD MRN: Sex: : Age: [id number] F 1970 52 Account: Accession: Admit: StayType: [id number] 11/07/2022 CLINIC Ordered: Order ID: Submitted: Ordering Provider: 11/07/2022 11:30 [id number] SOULEYMANE FRENCH Completed: Technologist: Resulted: 11/07/2022 11:44 REKHA 11/07/2022 12:23 Study Description: XR SHOULDER 2V OR MORE RT Study Reason: Pain TECHNIQUE: 2D digital imaging was performed. COMPARISON: No exams were available for comparison FINDINGS: NUMBER OF VIEWS: 3 No evidence of acute fracture nor dislocation. No abnormal soft tissue calcifications. Subacromial space is not diminished. Bone density normal. No osseous lesions. IMPRESSION: No acute osseous findings in the shoulder. Report Digitally Signed by Spike Ann on 11/07/2022 12:23 PM EST Social History Type Status Start Date End Date Code Code Syst em Smoking History Never smoker (Never Smoked) 505367017 SNOMED CT Sex Female Assessment You had [...] Date Status Code Code System DIABETES active 63926316 SNOMED-CT HIGH CHOLESTEROL active 32949051 SNO MED-CT ANXIETY active 81303968 SNOMED-CT Allergies and Adverse Reactions Allergy Substance Reaction Severity Start Date Concern Status Co de Code System No Known Drug Allergies Active 539007925 SNOMED-CT Plan of Treatment MRI LOWER EXT W/O CONTRAST 01/17/2024 US ABDOMEN LIMITED 1 ORGAN 02/22/2023 X-RAY 12/31/2021 X-RAY 07/09/2021 US GUIDED NEEDLE BIOPSY 07/14/2021 MRI UPPER EXT JOINT W/O CONTRAST 2020 Encounters Encounter Diagnosis Start Date Code Code Sys tem 11/07/2022 [id number] SNOMED-CT Personal Care Team Section Performer Name Performer Role Active Date Inactive Da te
--- OUTSIDE RECORDS SUMMARY | 2024-09-05 09:57 | XMS_ITS ---
Author Organization Unknown Address [address] [place] [address] [phone] Phone Care Team Providers Care Maintenance Man Name Role Phone AARON Ann Attending Unavailable MELINDA Oakes Primary Unavailable Results CBC W/ DIFFERENTIAL* - Colle ct Date/Time: 12/31/2021 15:48 [facility] ID: [id number] [address] [place], [place], [address] LOINC: 14591-7 Test Value Unit Reference Range Code Code System Flag WBC 7.15 th/cmm L=5.00 H=10.00 6690-2 LOINC NEUT % 57.5 % L=40.0 H=80.0 LYMPH % 30.5 % L=10.0 H=50.0 MONO % 5.9 % L=2.0 H=12.0 14189-1 LOINC EOS % 5.2 % L=0.0 H=8.0 BASO % 0.6 % L=0.0 H=3.0 IG % 0.3 % L=0.0 H=1.1 2514-8 LOINC NRBC % 0.0 % L=0.0 H=0.0 27156-9 LOINC NEUT abs count 4.1 th/cmm L=1.6 H=8.4 751-8 LOINC LYMPH abs count 2.2 th/cmm L=1.5 H=4.0 731-0 LOINC MONO abs count 0.4 th/cmm L=0.2 H=1.0 742-7 LOINC EOS abs count 0.4 th/cmm L=0.0 H=0.5 711-2 LOINC BASO abs count 0.0 th/cmm L=0.0 H=0.2 704-7 LOINC IG abs count 0.0 th/cmm L=0.0 H=0.1 14514-5 LOINC NRBC abs count 0.0 mil/cmm L=0.0 H=0.0 72423-2 LOINC RBC 5.00 mil/cmm L=3.90 H=5.40 789-8 LOINC HEMOGLOBIN 13.2 gm/dL L=12.0 H=16.0 718-7 LOINC HEMATOCRIT 40 % L=37 H=47 4544-3 LOINC MCV 80 fL L=82 H=92 787-2 LOINC L MCH 26.4 pg L=27.0 H=31.0 785-6 LOINC L MCHC 33.1 % L=32.0 H=36.0 786-4 LOINC RDW-SD 47.2 fL L=39.0 H=49.0 788-0 LOINC PLATELET COUNT 290 th/cmm L=150 H=450 777-3 LOINC COMPREHENSIVE METABOLIC PANE L (CMP) - Collect Date/Time: 12/31/2021 15:48 [facility] ID: [id number] [address] [place], [place], [address] LOINC: 44188-1 Test Value Unit Reference Range Code Code System Flag GLUCOSE 214 mg/dL L=70 H=116 2345-7 LOINC H BUN 11 mg/dL L=6 H=25 3094-0 LOINC CREATININE 0.86 mg/dL L=0.51 H=0.95 2160-0 LOINC SODIUM SERUM 137 mmol/L L=136 H=145 2951-2 LOINC POTASSIUM SERUM 3.4 mmol/L L=3.4 H=5.2 2823-3 LOINC CHLORIDE SERUM 100 mmol/L L=96 H=110 2075-0 LOINC CARBON DIOXIDE (CO2) 26 mmol/L L=22 H=34 2028-9 LOINC ANION GAP 10.6 mmol/L 16180-0 LOINC CALCIUM SERUM 8.9 mg/dL L=8.2 H=10.2 92826-9 LOINC BILIRUBIN TOTAL 0.4 mg/dL L=0.0 H=1.3 1975-2 LOINC ALK. PHOS. 95 U/L L=46 H=116 6768-6 LOINC SGOT (AST) 52 U/L L=15 H=37 1920-8 LOINC H SGPT (ALT) 51 U/L L=12 H=78 1742-6 LOINC TOTAL PROTEIN 7.5 gm/dL L=6.0 H=8.0 2885-2 LOINC ALBUMIN 3.1 gm/dL L=3.4 H=5.0 1751-7 LOINC L AGE 51 years eGFR (non-Afr.Amer.) 70 mL/min 32170-0 LOINC eGFR (Afr-Belgian) 84 mL/min 38212-2 LOINC XR CHEST 2V PA AND LATERAL - Completed: 01/01/2022 06:35 LOINC: CHEST - 3 VIEWS:Comparison i s made with 07/09/21. Heart size and pulmonary vasculature are within normal limits. There is a faint infiltrate in the left lung base lateral to the heart. The lungs are otherwise clear. No effusions or pneumothoraces are identified. No acute osseous abnormality is identified. IMPRESSION:Left basilar infiltrates suspicious for pneumonia. Dictated by: STEVEN PRUITT MD Transcribed by: LAZARA 12/31/2115:55 D Friday, December 31, 2021 3:52:38 PM [id number] Electronically Reviewed and Signed By: MONSTER PRUITT MD 12/31/21 15:58 Copy for: AARON Ann via fax Copy for: [facility] HEALTH INFORMATION MGMT Social History Type Status Start Date End Date Code Code Syst em Smoking History Never smoker (Never Smoked) 773883479 SNOMED CT Sex Female Medications Medication Start Date End Date Route Frequency Dose Code Code System Medication Instructions Home Meds Aspir Low 81MG Oral Tablet, Enteric Coated 01/03/2019 10/13/2022 ORAL DAILY 81 MILLIGRAMS 8071783 RxNorm TAKE 81 MILLIGRAMS ORAL DAILY LANTUS 100U/1ML SUBCUTANEO US SOLUTI 01/03/2019 10/13/2022 SUBCUTA NEOUS EVERY EVENING 75 UNIT RxNorm INJECT 75 UNIT SUBCUTANEOUS EVERY EVENING LISINOPRIL 01/03/2019 10/13/2022 ORAL TWICE A DAY 1 TABLET RxNorm TAKE 1 TABLET ORAL TWICE A DAY PRAGLENYS N 01/03/2019 10/13/2022 ORAL DAILY 1 TABLET RxNorm TAKE 1 TABLET ORAL DAILY metFORMIN HCl 1000MG Oral Tablet, Extended Release 01/03/2019 10/13/2022 ORAL DAILY 6809666 RxNorm TAKE 000 MILLIGRAMS ORAL DAILY Assessment [...] Date Status Code Code System DIABETES active 46083276 SNOMED-CT HIGH CHOLESTEROL active 04513354 SNO MED-CT ANXIETY active 90401328 SNOMED-CT Allergies and Adverse Reactions Allergy Substance Reaction Severity Start Date Concern Status Co de Code System No Known Drug Allergies Active 140755134 SNOMED-CT Plan of Treatment MRI LOWER EXT W/O CONTRAST 01/17/2024 US ABDOMEN LIMITED 1 ORGAN 02/22/2023 X-RAY 12/31/2021 X-RAY 07/09/2021 US GUIDED NEEDLE BIOPSY 07/14/2021 MRI UPPER EXT JOINT W/O CONTRAST 2020 Encounters Encounter Diagnosis Start Date Code Code Sys tem Other nonspecific abnormal finding of lung field 12/31 SNOMED-CT Personal Care Team Section Performer Name Performer Role Active Date Inactive Da kiley
--- OUTSIDE RECORDS SUMMARY | 2024-09-05 09:58 | XMS_ITS ---
Author Organization Unknown Address [address] [place] [address] [phone] Phone Care Team Providers Care Marketing Community Liaison Name Role Phone ROOMET SHIVAM Attending Unavailable MELINDA Oakes Primary Unavailable Social History Type Status Start Date End Date Code Code Syst em Smoking History Never smoker (Never Smoked) 719644107 SNOMED CT Sex Female Assessment You had the following problems:DIABETESHIGH CHOLESTEROLANXIETY Hospital Discharge Instructions Should you have any questions prior to discharge, please contact a member of your healthcare team. If you have left the hospital and have any questions, please contact your primary care physician. Reason For Referral No Data Found Procedures Procedure Name Date Status Code Code Syste m Nerve Conduction Studies 7-8 Studies 11/21/2023 completed 50124 CPT Problems Problem Start Date Resolved Date Status Code Code System DIABETES active 61589535 SNOMED-CT HIGH CHOLESTEROL active 83865207 SNO MED-CT ANXIETY active 22017224 SNOMED-CT Allergies and Adverse Reactions Allergy Substance Reaction Severity Start Date Concern Status Co de Code System No Known Drug Allergies Active 629971143 SNOMED-CT Plan of Treatment MRI LOWER EXT W/O CONTRAST 01/17/2024 US ABDOMEN LIMITED 1 ORGAN 02/22/2023 X-RAY 12/31/2021 X-RAY 07/09/2021 US GUIDED NEEDLE BIOPSY 07/14/2021 MRI UPPER EXT JOINT W/O CONTRAST 2020 Encounters Encounter Diagnosis Start Date Code Code Sys tem Carpal tunnel syndrome, bilateral upper limbs 11/21/19 SNOMED-CT Personal Care Team Section Performer Name Performer Role Active Date Inactive Da te
--- OUTSIDE RECORDS SUMMARY | 2024-09-05 09:58 | XMS_ITS ---
Author Organization Unknown Address [address] [place] [address] [phone] Phone Care Team Providers Care Sanitarian Inspector Name Role Phone MELINDA Oakes Attending Unavailable Results US ABD LIMITED ONE ORGAN - C ompleted: 02/22/2023 08:24 LOINC: [facility] [place], [place] [address] PACS GLOBAL COORDINATOR REPORT Patient Name: STONE DONALD MRN: Sex: : Age: [id number] F 1970 52 Account: Accession: Admit: StayType: [id number] 02/22/2023 O/P Ordered: Order ID: Submitted: Ordering Provider: 02/22/2023 08:11 [id number] PEDRO NELSON Completed: Technologist: Resulted: 02/22/2023 08:24 GVS 02/22/2023 10:58 Study Description: US ABD LIMITED ONE ORGAN Study Reason: ELEVATED LFT COMPARISON: None FINDINGS: LIVER: Enlarged at 21 cm. Diffusely increased echogenicity consistent with moderate hepatic steatosis. No focal liver lesions are seen. GALLBLADDER: 2 cm gallstone noted.. No evidence of wall thickening. No pericholecystic fluid identified. AMADOR'S SIGN: Negative. BILIARY SYSTEM: No intrahepatic or extrahepatic biliary ductal dilation. RIGHT KIDNEY: Normal in size. No evidence of renal calculi. No evidence of hydronephrosis. No suspicious renal mass. No cyst identified. PANCREAS: Normal where visualized. ABDOMINAL AORTA AND IVC: Visualized portions normal caliber. ASCITES: None seen. IMPRESSION: Moderate hepatic steatosis. Single large gallstone. Report Digitally Signed by Madison Erickson on 02/22/2023 10:58 AM EDT Social History Type Status Start Date End Date Code Code Syst em Smoking History Never smoker (Never Smoked) 481075427 SNOMED CT Sex Female Assessment You had [...] Date Status Code Code System DIABETES active 16064584 SNOMED-CT HIGH CHOLESTEROL active 13801431 SNO MED-CT ANXIETY active 25649062 SNOMED-CT Allergies and Adverse Reactions Allergy Substance Reaction Severity Start Date Concern Status Co de Code System No Known Drug Allergies Active 155729133 SNOMED-CT Plan of Treatment MRI LOWER EXT W/O CONTRAST 01/17/2024 US ABDOMEN LIMITED 1 ORGAN 02/22/2023 X-RAY 12/31/2021 X-RAY 07/09/2021 US GUIDED NEEDLE BIOPSY 07/14/2021 MRI UPPER EXT JOINT W/O CONTRAST 2020 Encounters Encounter Diagnosis Start Date Code Code Sys tem Fatty (change of) liver, not elsewhere classified 02/03 SNOMED-CT Personal Care Team Section Performer Name Performer Role Active Date Inactive Da te
--- OUTSIDE RECORDS SUMMARY | 2024-09-05 09:58 | XMS_ITS ---
Author Organization Unknown Address [address] [place] [phone] Phone Care Team Providers Care Lamp Tester And Inspector Name Role Phone ROZ BLANKENSHIP Registered Nurse Unavailable STANLEY Spaulding Attending Unavailable WERNER GOMEZ Unavailable MELINDA Oakes Primary Unavailable UNLISTED PROVIDER - REQUESTED Xhandoff Un available Results XR FOOT 3V LT* - Completed: 12/21/2023 15:54 LOINC: [place], [place] [address] PACS LABOR AND DELIVERY NURSE REPORT Patient Name: STONE DONALD MRN: Sex: : Age: [id number] F 1970 53 Account: Accession: Admit: StayType: [id number] 12/21/2023 E/R Ordered: Order ID: Submitted: Ordering Provider: 12/21/2023 15:44 [id number] HARI LANZA Completed: Technologist: Resulted: 12/21/2023 15:54 SLG 12/21/2023 16:03 Study Description: XR FOOT 3V LT Study Reason: Pain TECHNIQUE: 3 views COMPARISON: None. FINDINGS: Bones: No evidence of fracture. No destructive lesion. Small heel spurs. Joints: No dislocation or subluxation.No significant degenerative changes . Soft tissues: Dorsal swelling. No foreign body. IMPRESSION: No acute abnormality. Report Digitally Signed by Madison Erickson on 12/21/2023 04:03 PM EDT Social History Type Status Start Date End Date Code Code Syst em Smoking History Never smoker (Never Smoked) 834227203 SNOMED CT Sex Female Vital Signs Vital Sign Value Unit Turner Value Turner Unit Date/Time Recent/Initial? Code Code System Body Mass Index 33.20 kg/m2 12/21/2023 15:34 Initial 23046 -5 LOINC Systolic Blood Pressure 126 mm[Hg] 12/21/2023 15:34 Initial 8480- 6 LOINC Diastolic Blood Pressure 78 mm[Hg] 12/21/2023 15:34 Initial 8462- 4 LOINC Body Surface Area 2.13 m2 12/21/2023 15:34 Initial 3140- 1 LOINC Height 170.180 0 cm 67.00 in 12/21/2023 15:34 Initial 8302- 2 LOINC O2 Saturation 98 % 2023 15:34 Initial 50041 -5 LOINC Pulse 55.0 /min 12/21/2023 15:34 Initial 8867- 4 LOINC Respiration 15 /min 12/21/19 15:34 Initial 9279- 1 LOINC Temperature 37.0 Maryam 98.6 F 12/21/19 15:34 Initial 8310- 5 LOINC Weight 96.16 kg 212.00 lbs 12/21/2023 15:34 Initial 04509 -7 LOINC Assessment You had the following problems:DIABETESHIGH CHOLESTEROLANXIETY Hospital Discharge Instructions Should you have any questions prior to discharge, please contact a member of your healthcare team. If you have left the hospital and have any questions, please contact your primary care physician. Reason For Referral No Data Found Problems Problem Start Date Resolved Date Status Code Code System DIABETES active 11125885 SNOMED-CT HIGH CHOLESTEROL active 88048848 SNO MED-CT ANXIETY active 45580730 SNOMED-CT Allergies and Adverse Reactions Allergy Substance Reaction Severity Start Date Concern Status Co de Code System No Known Drug Allergies Active 007198925 SNOMED-CT Plan of Treatment MRI LOWER EXT W/O CONTRAST 01/17/2024 US ABDOMEN LIMITED 1 ORGAN 02/22/2023 X-RAY 12/31/2021 X-RAY 07/09/2021 US GUIDED NEEDLE BIOPSY 07/14/2021 MRI UPPER EXT JOINT W/O CONTRAST 2020 Encounters Encounter Diagnosis Start Date Code Code Sys tem Strain of other specified mu scles and tendons at ankle and foot level, left foot, initial encounter 12/21/2023 SNOMED-CT Personal Care Team Section Performer Name Performer Role Active Date Inactive Da te
--- OUTSIDE RECORDS SUMMARY | 2024-09-05 09:59 | XMS_ITS ---
Author Organization Unknown Address [address] [place] [address] [phone] Phone Care Team Providers Care Wheel Worker Name Role Phone DINORA Ramirez Attending Unavailable MELINDA Oakes Primary Unavailable Social History Type Status Start Date End Date Code Code Syst em Smoking History Never smoker (Never Smoked) 119884048 SNOMED CT Sex Female Assessment You had [...] Date Status Code Code System DIABETES active 33591550 SNOMED-CT HIGH CHOLESTEROL active 90577769 SNO MED-CT ANXIETY active 15375666 SNOMED-CT Allergies and Adverse Reactions Allergy Substance Reaction Severity Start Date Concern Status Co de Code System No Known Drug Allergies Active 884940551 SNOMED-CT Plan of Treatment MRI LOWER EXT W/O CONTRAST 01/17/2024 US ABDOMEN LIMITED 1 ORGAN 02/22/2023 X-RAY 12/31/2021 X-RAY 07/09/2021 US GUIDED NEEDLE BIOPSY 07/14/2021 MRI UPPER EXT JOINT W/O CONTRAST 2020 Encounters Encounter Diagnosis Start Date Code Code Sys tem Idiopathic osteoarthritis 02/19/2024 856105806 SN OMED-CT Personal Care Team Section Performer Name Performer Role Active Date Inactive Da te
--- OUTSIDE RECORDS SUMMARY | 2024-09-05 09:59 | XMS_ITS ---
Author Organization Unknown Address [address] [place] [address] [phone] Phone Care Team Providers Care Lead Network Architect Name Role Phone BOY Palafox Attending Unavailable MELINDA Oakes Primary Unavailable Social History Type Status Start Date End Date Code Code Syst em Smoking History Never smoker (Never Smoked) 826318668 SNOMED CT Sex Female Assessment You had [...] Date Status Code Code System DIABETES active 00732547 SNOMED-CT HIGH CHOLESTEROL active 80741395 SNO MED-CT ANXIETY active 70628707 SNOMED-CT Allergies and Adverse Reactions Allergy Substance Reaction Severity Start Date Concern Status Co de Code System No Known Drug Allergies Active 392723653 SNOMED-CT Plan of Treatment MRI LOWER EXT W/O CONTRAST 01/17/2024 US ABDOMEN LIMITED 1 ORGAN 02/22/2023 X-RAY 12/31/2021 X-RAY 07/09/2021 US GUIDED NEEDLE BIOPSY 07/14/2021 MRI UPPER EXT JOINT W/O CONTRAST 2020 Encounters Encounter Diagnosis Start Date Code Code Sys tem 01/15/2024 88487514121499254 SNOMED-CT Personal Care Team Section Performer Name Performer Role Active Date Inactive Da te
--- OUTSIDE RECORDS SUMMARY | 2024-09-05 09:59 | XMS_ITS ---
Author Organization Unknown Address [address] [place] [address] [phone] Phone Care Team Providers Care Business Resiliency Manager Name Role Phone DINORA Ramirez Attending Unavailable MELINDA Oakes Primary Unavailable Social History Type Status Start Date End Date Code Code Syst em Smoking History Never smoker (Never Smoked) 999005461 SNOMED CT Sex Female Assessment You had [...] Date Status Code Code System DIABETES active 27823203 SNOMED-CT HIGH CHOLESTEROL active 33407883 SNO MED-CT ANXIETY active 63781953 SNOMED-CT Allergies and Adverse Reactions Allergy Substance Reaction Severity Start Date Concern Status Co de Code System No Known Drug Allergies Active 530157127 SNOMED-CT Plan of Treatment MRI LOWER EXT W/O CONTRAST 01/17/2024 US ABDOMEN LIMITED 1 ORGAN 02/22/2023 X-RAY 12/31/2021 X-RAY 07/09/2021 US GUIDED NEEDLE BIOPSY 07/14/2021 MRI UPPER EXT JOINT W/O CONTRAST 2020 Encounters Encounter Diagnosis Start Date Code Code Sys tem Idiopathic osteoarthritis 01/23/2024 385485676 SN OMED-CT Personal Care Team Section Performer Name Performer Role Active Date Inactive Da te
--- OUTSIDE RECORDS SUMMARY | 2024-09-05 09:59 | XMS_ITS ---
Author Organization Unknown Address [address] [place] [address] [phone] Phone Care Team Providers Care Bagger Meat Name Role Phone DINORA Ramirez Attending Unavailable MELINDA Oakes Primary Unavailable Results MR LOWER EXT NOT JOINT LT WO CONTRAST - Completed: 01/17/2024 14:55 LOINC: [facility] RADIOLOGY [place], [place] [address] INFINITT PACS OFFICE AIDE REPORT Patient Name: STONE DONALD MRN: Sex: : Age: [id number] O 1970 53 Account: Accession: Admit: StayType: [id number] 01/17/2024 O Ordered: Order ID: Submitted: Ordering Provider: 01/17/2024 14:01 [id number] TERRY REARDON Completed: Technologist: Resulted: 01/17/2024 14:05 TXS 01/17/2024 18:08 FINAL REPORT EXAM: MR LOWER EXT NOT JOINT LT WO CONTRAST CLINICAL HISTORY: Reason MRI Extrem: PAIN 1ST METAT. LT FOOT TECHNIQUE: Multiplanar multisequence MRI was performed. COMPARISON: No exams were available for comparison FINDINGS: SKIN/SUBCUTANEOUS: No obvious skin ulcer nor subcutaneous tract. MARROW/ARTICULATIONS:No distinct fracture lines. There are no significant osseous lesions. No abnormal intraosseous signal in the great toe metatarsal, as per request. Also no abnormal intraosseous signal within the to sesamoid bone subjacent to the great toe metatarsal head. No obvious degenerative changes in the great toe metatarsophalangeal joint. Small amount of increased joint fluid at this level. No osteophytes. There are significant degenerative changes in the 2nd tarsometatarsal joint. There are degenerative subarticular cysts and mild intraosseous edema on both sides of this joint within the base of the 2nd metatarsal and middle cuneiform. There is also mild edema in the mid shaft of the 2nd metatarsal. No subtle fracture line seen. No abnormal signal in the 3rd, 4th, and 5th metatarsals.. The other tarsometatarsal joints appear unremarkable. LISFRANC: Main Lisfranc ligament appears with thin. May imply partial tear. There is no diastasis of the Lisfranc joint. PLANTAR FASCIA: Appears unremarkable. MUSCLES/TENDONS: There is no evidence of abnormal signal nor mass in the visualized muscles.No tendon tears no tenosynovitis seen within the [id number]. EXTRAMUSCULAR SOFT TISSUES: No evidence of Willis's interdigital neuroma Mild fluid signal in the 1st intermetatarsal space is probably an element of mild intermetatarsal bursitis. OTHER: No abnormal mass evident. Muscle signal is normal. IMPRESSION: 1. No evidence of abnormal intraosseous findings in the great toe metatarsal, as per request. 2. There are degenerative changes confined to the 2nd tarsometatarsal joint with degenerative subarticular cysts and intra osseous edema on both sides of the joint in the base of the 2nd metatarsal and distal aspect the middle cuneiform bone. There is also mild intraosseous edema in the diaphysis of the 2nd metatarsal. This may be related to the degenerative changes more proximally or stress reaction. There is no fracture line evident on T1 images. The other metatarsals and cuneiform bones appear unremarkable, as does the cuboid. DATA REPOSITORY: Electronically signed by: Spike Ann Dictated: 01/17/2024 18:08 Social History Type Status Start Date End Date Code Code Syst em Smoking History Never smoker (Never Smoked) 104835256 SNOMED CT Sex Female Assessment You had [...] Date Status Code Code System DIABETES active 06735268 SNOMED-CT HIGH CHOLESTEROL active 62109653 SNO MED-CT ANXIETY active 10998643 SNOMED-CT Allergies and Adverse Reactions Allergy Substance Reaction Severity Start Date Concern Status Co de Code System No Known Drug Allergies Active 745689244 SNOMED-CT Plan of Treatment MRI LOWER EXT W/O CONTRAST 01/17/2024 US ABDOMEN LIMITED 1 ORGAN 02/22/2023 X-RAY 12/31/2021 X-RAY 07/09/2021 US GUIDED NEEDLE BIOPSY 07/14/2021 MRI UPPER EXT JOINT W/O CONTRAST 2020 Encounters Encounter Diagnosis Start Date Code Code Sys tem Disorder of bone 01/17/2024 65660590 SNOMED-CT Personal Care Team Section Performer Name Performer Role Active Date Inactive Da te
--- OUTSIDE RECORDS SUMMARY | 2024-09-05 10:00 | XMS_ITS ---
Author Organization Unknown Address [address] [place] [address] [phone] Phone Care Team Providers Care Manager E Learning Name Role Phone BOY Palafox Attending Unavailable Social History Type Status Start Date End Date Code Code Syst em Smoking History Never smoker (Never Smoked) 647556920 SNOMED CT Sex Female Assessment You had [...] Date Status Code Code System DIABETES active 56795149 SNOMED-CT HIGH CHOLESTEROL active 82651575 SNO MED-CT ANXIETY active 02651863 SNOMED-CT Allergies and Adverse Reactions Allergy Substance Reaction Severity Start Date Concern Status Co de Code System No Known Drug Allergies Active 120176091 SNOMED-CT Plan of Treatment MRI LOWER EXT W/O CONTRAST 01/17/2024 US ABDOMEN LIMITED 1 ORGAN 02/22/2023 X-RAY 12/31/2021 X-RAY 07/09/2021 US GUIDED NEEDLE BIOPSY 07/14/2021 MRI UPPER EXT JOINT W/O CONTRAST 2020 Encounters Encounter Diagnosis Start Date Code Code Sys tem 03/12/2024 [id number] SNOMED-CT Personal Care Team Section Performer Name Performer Role Active Date Inactive Da te
--- OUTSIDE RECORDS SUMMARY | 2024-09-05 10:00 | XMS_ITS | Referral Summary ---
Author Organization [facility] Address [address] [place] [address] Care Team Providers Care Cloth Bleaching Range Operator Chief Name Role Phone Ciro Best DO Unavailable [phone] Unknown, Provider Primary Care Provider Unava ilable Encounters Date Type Department Care Team Description 07/29/2024 10:53 EST - 07/29/2024 23:59 EST Hospital Encounter [facility] [place] Mammography [address] [place], [place] [address] Encounter for screening mammogram for malignant neoplasm of breast Discharge Disposition: Home or Self Care from Last 3 Months Allergies No known active allergies Medications aspirin chewable 81 mg tablet Take 81 mg by mouth daily. Active metFORMIN (GLUCOPHAGE) 1,000 mg tablet Take 1,000 mg by mouth 2 times daily. Active pravastatin (PRAVACHOL) 20 mg tablet Take 20 mg by mouth daily. Active lisinopril (PRINIVIL, ZESTRIL) 10 mg tablet Take 10 mg by mouth daily. Active Active Problems Problem Noted Date Diagnosed Date Abnormal mammogram of left breast 02/04/2019 Abnormal ultrasound of breast 02/04/2019 Social History Tobacco Use Types Packs/Day Years Used Date Smoking Tobacco: Former Smokeless Tobacco: Never Alcohol Use Standard Drinks/Week Comments Yes 0 (1 standard drink = 0.6 oz pur e alcohol) rare Interpersonal Safety Answer Date Record ed Physically Hurt Never 04/05/2020 Verbally Threaten Not on file 04/05/2020 Comments No Sex and Gender Information Value Date Recorded Sex Assigned at Not on file Legal Sex Female 18:23 EST Gender Identity Female 02/22/2023 16:40 EDT Sexual Orientation Not on file Last Filed Vital Signs Vital Sign Reading Time Taken Comments Blood Pressure 129/79 02/04/2019 1404 EDT Pulse 77 02/04/2019 1404 EDT Temperature - - Respiratory Rate - - Oxygen Saturation - - Inhaled Oxygen Concentration - - Weight 104.3 kg (230 lb) 02/04/2019 1404 EDT Height 172.7 cm (5' 8) 02/04/2019 1404 EDT Body Mass Index 34.97 02/04/2019 1404 EDT Plan of Treatment Not on file Procedures Procedure Name Priority Date/Time Associated Diagnosis Comments MA BREAST SCREENING ANTWAN BILATERAL Routine 07/29/2024 11:15 EST Encounter for screening mammogram for malignant neoplasm of breast from Last 3 Months Results * MA BREAST SCREENING ANTWAN BILATERAL (07/29/2024 11:15 EST) Anatomical Region Laterality Modality Breast Bilateral Mammography 07/31/2024 7:34 EST Impressions 07/31/2024 7:34 EST Negative, no evidence of malignancy. RECOMMENDATION: Routine screening mammography is recommended. OVERALL ASSESSMENT: BI-RADS 1: Negative These results will be communicated to your patient via a lay letter from Radiology. If any additional imaging is needed we will [place] [address] [id number] Narrative 07/31/2024 7:34 EST MA BREAST SCREENING ANTWAN BILATERAL ??07/29/2024 11:03 AM History: routine screening Comparison: ??Comparison has been made to previous images . ? Technique: Routine 3D tomosynthesis with synthesized 2D views with CAD Breast Composition: There are scattered areas of fibroglandular density. Bilateral Breast Findings: ??No significant masses, calcifications or other abnormalities are seen. Resulting Agency Comment [id number] Procedure Note Jackson Marmolejo MD - 07/31/2024 MA BREAST SCREENING ANTWAN BILATERAL 07/29/2024 11:03 AM History: routine screening Comparison: Comparison has been made to previous images . Technique: Routine 3D tomosynthesis with synthesized 2D views with CAD Breast Composition: There are scattered areas of fibroglandular density. Bilateral Breast Findings: No significant masses, calcifications or otherabnormalities are seen. IMPRESSION Negative, no evidence of malignancy. RECOMMENDATION: Routine screening mammography is recommended. OVERALL ASSESSMENT: BI-RADS 1: Negative These results will be communicated to your patient via a lay letter fromRadiology. If any additional imaging is needed we will contact yourpatient directly. [place] [phone] [id number] us Heena Mccray NP IMG MAMMOGRAPHY ORDERABLES Fi nal Result from Last [address] [place] [place] [address] [facility] [employer] Care Teams Cloth Bleaching Range Operator Chief Relationship Specialty Start Date End Date Unknown, Provider, [address] [facility], [address] [place] [address] PCP - General 06/02/23 Ciro Best DO [address] [place] [address], [address] [place] [address] Obstetrics and Gynecology 06/02/23
--- OUTSIDE RECORDS SUMMARY | 2024-09-05 10:00 | XMS_ITS ---
Author Organization Unknown Address [address] [place] [address] [phone] Phone Care Team Providers Care Electric Serviceman Name Role Phone MELINDA Oakes Attending Unavailable Results XR RIBS UNILAT W PA CHEST 3V RT* - Completed: 05/09/2024 13:04 LOINC: [facility] RADIOLOGY [place], [place] [address] RADIOLOGY DEPARTMENT CHAIR REPORT Patient Name: STONE DONALD MRN: Sex: : Age: [id number] F 1970 53 Account: Accession: Admit: StayType: [id number] 05/09/2024 O Ordered: Order ID: Submitted: Ordering Provider: 05/09/2024 12:40 [id number] PEDRO CHOI Completed: Technologist: Resulted: 05/09/2024 12:36 LOREN 05/09/2024 13:22 EXAMINATION: XR RIBS UNILAT W PA CHEST 3V RT CLINICAL HISTORY: Reason for Chest: RT RIB PAIN Add'l Info: TECHNIQUE: 3 views RIGHT ribs and chest COMPARISON: Chest radiograph 12/31/2021. FINDINGS: A BB markers indicating area of clinical concern. No displaced rib fracture or other acute osseous finding. The bilateral lungs are clear. There are no pleural effusions or pneumothoraces. The trachea is midline. The hilar and mediastinal structures are unremarkable. The cardiomediastinal silhouette is within normal limits. IMPRESSION: 1. No rib fracture 2. No acute cardiopulmonary abnormality Thank you for letting us participate in the care of this patient. If you are a health care provider and have any questions regarding this report, please contact the number below. For patients who have questions please contact the health residential care officer that requested your imaging first. Social History Type Status Start Date End Date Code Code Syst em Smoking History Never smoker (Never Smoked) 579234806 SNOMED CT Sex Female Assessment You had [...] Date Status Code Code System DIABETES active 01803081 SNOMED-CT HIGH CHOLESTEROL active 53548872 SNO MED-CT ANXIETY active 16351402 SNOMED-CT Allergies and Adverse Reactions Allergy Substance Reaction Severity Start Date Concern Status Co de Code System No Known Drug Allergies Active 817085756 SNOMED-CT Plan of Treatment MRI LOWER EXT W/O CONTRAST 01/17/2024 US ABDOMEN LIMITED 1 ORGAN 02/22/2023 X-RAY 12/31/2021 X-RAY 07/09/2021 US GUIDED NEEDLE BIOPSY 07/14/2021 MRI UPPER EXT JOINT W/O CONTRAST 2020 Encounters Encounter Diagnosis Start Date Code Code Sys tem Pleuritic pain 05/09/2024 8827576 SNOMED-CT Personal Care Team Section Performer Name Performer Role Active Date Inactive Da te
--- OUTSIDE RECORDS SUMMARY | 2024-09-05 10:00 | XMS_ITS | Clinical Summary ---
Author Organization [facility] Address [address] [place] [address] Care Team Providers Care Paraprofessional Aide Teacher Name Role Phone Ciro Best DO Unavailable [phone] Unknown, Provider MD Primary Care Provider Unava ilable Allergies No known active allergies Medications aspirin [...] breast 02/04/2019 Abnormal ultrasound of breast 02/04/2019 Encounters Date Type Department Care Team Description 07/29/2024 10:53 EST - 07/29/2024 23:59 EST Hospital Encounter [facility] [place] [address] [place] [address] Encounter for screening mammogram for malignant neoplasm of breast Discharge Disposition: Home or Self Care from Last 3 Months Surgical History Surgery Date Site/Laterality Comments BREAST BIOPSY Left Family History Medical History Relation Comments Breast Cancer Maternal Grandmother Breast Cancer Mother Relation Status Comments Maternal Grandmother Mother Social History Tobacco Use Types Packs/Day Years [...] 16:40 EDT Sexual Orientation Not on file Obstetrics History Last Filed Vital Signs Vital Sign Reading Time Taken Comments Blood Pressure 129/79 02/04/2019 1404 EDT Pulse 77 02/04/2019 1404 EDT Temperature - - Respiratory Rate - - Oxygen Saturation - - Inhaled Oxygen Concentration - - Weight 104.3 kg (230 lb) 02/04/2019 1404 EDT Height 172.7 cm (5' 8) 02/04/2019 1404 EDT Body Mass Index 34.97 02/04/2019 1404 EDT Plan of Treatment Health Maintenance Due Date Last Done Comments Hepatitis C Screen 1970 Hepatitis B Vaccine (1 of 3 - 19+ 3-dose series) 10/28 COVID-19 Vaccine () 05/05/2024 Procedures Procedure Name Priority Date/Time Associated Diagnosis [...] needed we will [place] [address] [id number] Narrative 07/31/2024 7:34 EST MA BREAST SCREENING ANTWAN BILATERAL ??07/29/2024 11:03 AM History: routine screening Comparison: ??Comparison has been made to previous images . ? Technique: Routine 3D tomosynthesis with synthesized 2D views with CAD Breast Composition: There are scattered areas of fibroglandular density. Bilateral Breast Findings: ??No significant masses, calcifications or other abnormalities are seen. Resulting Agency Comment [id number] Procedure Note Jackson Marmolejo MD - 07/31/2024 [...] is needed we [place] [address] [id number] Heena Mccray NP IMG MAMMOGRAPHY ORDERABLES Fi nal Result from Last 3 Months Insurance [facility] Care Teams Paraprofessional Aide Teacher Relationship Specialty Start Date End Date Unknown, Provider, [address] [facility], [address] [place] [address] PCP - General 06/02/23 Ciro Best DO [address] [place] [address]-[address], [address] [place] [address] Obstetrics and Gynecology 06/02/23
--- OUTSIDE RECORDS SUMMARY | 2024-09-05 10:00 | XMS_ITS | Encounter Summary ---
Author Organization [facility] Address [address] [place] [address] Care Team Providers Care Dough Mixing Machine Operator Name Role Phone Ciro Best DO Unavailable [phone] Unknown, Provider Primary Care Provider Unava ilable Reason for Referral * Radiology Services (Routine/Next Available) - Authorization Not Required Specialty Diagnoses / Procedures Referred By Contac t Referred To Contact Diagnoses Encounter for screening mammogram for malignant neoplasm of breast Procedures MA BREAST SCREENING ANTWAN BILATERAL Heena Mccray NP [address] [place] [address] Phone: tel: fax: [facility] Referral ID Status Reason Start Date Expiration Date Visits Requested Visits Authorized [id number] Authorization Not Required 04/25/2024 1 1 Reason for Visit * Radiology Services (Routine/Next Available) - Authorization Not Required Specialty Diagnoses / Procedures Referred By Contac t Referred To Contact Diagnoses Encounter for screening mammogram for malignant neoplasm of breast Procedures MA BREAST SCREENING ANTWAN BILATERAL Heena Mccray NP [address] [place] [address] Phone: tel: fax: [facility] Referral ID Status Reason Start Date Expiration Date Visits Requested Visits Authorized [id number] Authorization Not Required 04/25/2024 1 1 Encounter Details Date Type Department Care Team (Latest Contact Info) Description 07/29/2024 10:53 EST - 07/29/2024 23:59 EST Hospital Encounter [facility] Mammography [address] [place] [address] Encounter for screening mammogram for malignant neoplasm of breast Discharge Disposition: Home or Self Care Social History Tobacco Use Types Packs/Day Years [...] 16:40 EDT Sexual Orientation Not on file documented as of this encounter Medications at Time of Discharge aspirin chewable 81 mg tablet Take 81 mg by mouth daily. lisinopril (PRINIVIL, ZESTRIL) 10 mg tablet Take 10 mg by mouth daily. metFORMIN (GLUCOPHAGE) 1,000 mg tablet Take 1,000 mg by mouth 2 times daily. pravastatin (PRAVACHOL) 20 mg tablet Take 20 mg by mouth daily. documented as of this encounter Discharge Disposition Disposition Code Departure Means Destination Home or Self Care documented in this encounter Plan of Treatment Not on file documented as of this encounter Procedures Procedure Name Priority Date/Time Associated Diagnosis Comments MA BREAST SCREENING ANTWAN BILATERAL Routine 07/29/2024 11:15 EST Encounter for screening mammogram for malignant neoplasm of breast documented in this encounter Results * MA BREAST SCREENING ANTWAN BILATERAL [...] needed we will contact your patient directly. [facility] [address] [place] [address] [id number] Narrative 07/31/2024 7:34 EST MA BREAST SCREENING ANTWAN BILATERAL ??07/29/2024 11:03 AM History: routine screening Comparison: ??Comparison has been made to previous images . ? Technique: Routine 3D tomosynthesis with synthesized 2D views with CAD Breast Composition: There are scattered areas of fibroglandular density. Bilateral Breast Findings: ??No significant masses, calcifications or other abnormalities are seen. Resulting Agency Comment [id number] Procedure Note Jackson Marmolejo MD - 07/31/2024 [...] is needed we will contact yourpatient directly. [address] [address] [id number] Heena Mccray FIRE CONTROL TECHNICIAN B IMG MAMMOGRAPHY ORDERABLES Fi nal Result documented in this encounter Visit Diagnoses Diagnosis Encounter for screening mammogram for malignant neoplasm of breast Other screening mammogram documented in this encounter Care Teams Dough Mixing Machine Operator Relationship Specialty Start Date End Date Unknown, Provider, [address] [place] [address] [facility], [address] [place] [address] PCP - General 06/02/23 Ciro Best DO [address] [place] [address] [facility], [address] [place] [address] Obstetrics and Gynecology 06/02/23 documented as of this encounter
--- OUTSIDE RECORDS SUMMARY | 2024-09-05 10:00 | XMS_ITS ---
Author Organization Unknown Address [address] [place] [address] [phone] Phone Care Team Providers Care Sql Report Developer Name Role Phone BOY Palafox Attending Unavailable DEJA Mckeon Physician Railroad Car Painter Unavailable MELINDA Oakes Primary Unavailable Social History Type Status Start Date End Date Code Code Syst em Smoking History Never smoker (Never Smoked) 972291386 SNOMED CT Sex Female Vital Signs Vital Sign Value Unit Albion Value Alb[place] Unit Date/Time Recent/Initial? Code Code System Systolic Blood Pressure 109 mm[Hg] 03/12/2024 09:53 Initial 8480-6 LOINC Diastolic Blood Pressure 73 mm[Hg] 03/12/2024 09:53 Initial 8462-4 LOINC Pulse 84.0 /min 03/12/2024 09:53 Initial 8867-4 LOINC Respiration 18 /min 03/12/20 09:53 Initial 9279-1 LOINC Temperature 2.6 Maryam 36.7 F 03/12/20 24 09:53 Initial 8310-5 LOINC Assessment You had the following problems:DIABETESHIGH CHOLESTEROLANXIETY Hospital Discharge Instructions Should you have any questions prior to discharge, please contact a member of your healthcare team. If you have left the hospital and have any questions, please contact your primary care physician. Reason For Referral No Data Found Procedures Procedure Name Date Status Code Code Syste m Neuroplasty &/Or Transpositi on; Median Nerve At Carpal Tunnel 03/12/2024 completed 55293 CPT Problems Problem Start Date Resolved Date Status Code Code System DIABETES active 07439459 SNOMED-CT HIGH CHOLESTEROL active 03440397 SNO MED-CT ANXIETY active 57704385 SNOMED-CT Allergies and Adverse Reactions Allergy Substance Reaction Severity Start Date Concern Status Co de Code System No Known Drug Allergies Active 285311721 SNOMED-CT Plan of Treatment MRI LOWER EXT W/O CONTRAST 01/17/2024 US ABDOMEN LIMITED 1 ORGAN 02/22/2023 X-RAY 12/31/2021 X-RAY 07/09/2021 US GUIDED NEEDLE BIOPSY 07/14/2021 MRI UPPER EXT JOINT W/O CONTRAST 2020 Encounters Encounter Diagnosis Start Date Code Code Sys tem Carpal tunnel syndrome, right upper limb 03/12/2024 SNOMED-CT Personal Care Team Section Performer Name Performer Role Active Date Inactive Da te
--- OUTSIDE RECORDS SUMMARY | 2024-09-05 10:01 | XMS_ITS | Encounter Summary ---
Author Organization [facility] Address [address] [place] [address] Care Team Providers Care Photogrammetric Engineer Name Role Phone Glenn Epperson MD Primary Care Provider Un available Encounter Details Date Type Department Care Team (Latest Contact Info) Description 01/17/2019 13:30 EDT - 01/17/2019 23:[address] [facility] [address] [place] [address] Unknown, Provider, MD Discharge Disposition: Home or Self Care Social History Tobacco Use Types Packs/Day Years Used Date Smoking Tobacco: Never Assessed Comments Unknown Sex and Gender Information Value Date Recorded Sex Assigned at Not on file Legal Sex Female 18:23 EST Gender Identity Female 02/22/2023 16:40 EDT Sexual Orientation Not on file documented as of this encounter Discharge Disposition Disposition Code Departure Means Destination Home or Self Senior Living documented in this encounter Plan of Treatment Not on file documented as of this encounter Visit Diagnoses Not on filedocumented in this encounter Care Teams Photogrammetric Engineer Relationship Specialty Start Date End Date Glenn Epperson MD PCP - General 07/15/15 02/28/21 documented as of this encounter
--- OUTSIDE RECORDS SUMMARY | 2024-09-05 10:01 | XMS_ITS | Encounter Summary ---
Author Organization [facility] Address [address] [place] [address] Care Team Providers Care Hospital Pharmacy Director Name Role Phone Glenn Epperson MD Primary Care Provider Un available Encounter Details Date Type Department Care Team (Late st Contact Info) Description 07/18/2011 Historical Results Only [facility] - Main [address] [address] Letha Thompson MD [address] [place] [address], [address] [place] [address] Social History Tobacco Use Types Packs/Day Years [...] Procedure Name Priority Date/Time Associated Diagnosis Comments PAP TEST Routine 07/18/2011 documented in this encounter Results * PAP TEST (07/18/2011) 07/18/2011 07/19/2011 9:4 6 EST Narrative [facility] - 07/22/2011 17:46 EST ----- ------- Name: ODILONSTONE ? : 70 ?Age/Sex: 48/F ?Unit#: [id number] ? Loc: AGO ? Status: REG POV ?? Reg Date: 07/18/11 ? Pt.Phone Number: ? ----- ------- Specimen: [id number] ?STATUS: SOUT ?Spec Date:07/18/11 ? Physician Copies: ?Letha Thompson MD ? Tissues: ? Cervical/Endo Pap ?Ciro Best DO CPT: 98953 ?? Units: ??1 ----- ------- ? CYTOLOGY DIAGNOSIS SPECIMEN ADEQUACY: ?Satisfactory for evaluation. Transformation zone component present. GENERAL CATEGORIZATION: ?Negative for Intraepithelial Lesion or Malignancy DESCRIPTIVE DIAGNOSIS: ? Negative for Intraepithelial Lesion or Malignancy. RECOMMENDATIONS/COMMENTS: ?None. ----- ------- ?HPV DNA RESULTS ?? 07/18/11 1616 HPV DNA RESULT ??NEG ? Negative for HPV types 16, 18, 31, 33, 35, 39, 45, 51, 52, ? 56, 58, 59, 66, 68. ? Method: Cervista HPV HR (High Risk) DNA test. ----- ------- ORDER QUERIES: LMP: 07/15/11- ? N Post ? N ??PREVIOUS ATYPICAL: Y BCP/HRT? N Rad Rx? N IUD? N ??PAP PLUS HPV? Y ??REFLEX TO HR-HPV IF ASCUS ?? REFLEX TO HPV 16/18 IF HPV POS/PAP NEG ?? HPV REGARDLESS?RFLX HPV IF LSIL ?? IF ASCUS DO HPV? N Signed Kaela Dumont CT(ASCP) 07/22/11 By the signature above, the attending physician certifies that he/she has personally conducted a gross and/or microscopic examination of the described specimens and rendered or confirmed the above diagnosis. Test Performed by [facility], [address] [place] [address] Decontaminator: Shahida Melendez MD PHD ----- ------- us Letha Thompson MD PATHOLOGY ORDERABLES Final Resu lt [facility] documented in this encounter Visit Diagnoses Not on filedocumented in this encounter Care Teams Hospital Pharmacy Director Relationship Specialty Start Date End Date Glenn Epperson MD PCP - General 07/15/15 02/28/21 documented as of this encounter
--- OUTSIDE RECORDS SUMMARY | 2024-09-05 10:01 | XMS_ITS | Encounter Summary ---
Author Organization [facility] Address [address] [place] [address] Care Team Providers Care Go Go Dancer Name Role Phone Glenn Epperson MD Primary Care Provider Un available Encounter Details Date Type Department Care Team (Late st Contact Info) Description 01/31/2019 Abstract [facility] General Surgery - [place] [address] [facility] [address] [place] [address] Eirka Shepherd NP [facility] [address] [facility] [place] [address] Social History Tobacco Use Types [...] Diagnoses Not on filedocumented in this encounter Historical Medications * This list may reflect changes made after this encounter. metFORMIN (GLUCOPHAGE) 1,000 mg tablet Take 1,000 mg by mouth 2 times daily. aspirin chewable 81 mg tablet Take 81 mg by mouth daily. MULTIVITAMIN ORAL Take by mouth. 02/04/2019 added in this encounter Care Teams Go Go Dancer Relationship Specialty Start Date End Date Glenn Epperson MD PCP - General 07/15/15 02/28/21 documented as of this encounter
--- OUTSIDE RECORDS SUMMARY | 2024-09-05 10:01 | XMS_ITS | Encounter Summary ---
Author Organization [facility] Address [address] [place] [address] Care Team Providers Care Securities Sales Associate Name Role Phone Unavailable Primary Care Provider Unavailabl e Encounter Details Date Type Department Care Team (Late st Contact Info) Description 06/21/1999 12:51 EDT Hospital Encounter [address] [address] Naheed Eller MD [address] [facility], [address] [place] [phone] Social History Tobacco Use Types Packs/Day Years [...]
--- OUTSIDE RECORDS SUMMARY | 2024-09-05 10:01 | XMS_ITS | Encounter Summary ---
Author Organization [facility] Address [address] [place] [address] Care Team Providers Care Licensed Loan Officer Assistant Name Role Phone Glenn Epperson MD Primary Care Provider Un available Encounter Details Date Type Department Care Team (Late st Contact Info) Description 01/09/2013 Historical Results Only [facility] - Main [place] [address] [place] [address] Ciro Best, [address] [facility], [address] [place] [address] Social History Tobacco Use Types [...] Date/Time Associated Diagnosis Comments PAP TEST Routine 01/09/2013 documented in this encounter Results * PAP TEST (01/09/2013) 01/09/2013 01/09/2013 18: 22 EDT Narrative [facility] - 03/06/2013 12:15 EDT ----- ------- Name: ODILONSTONE ? : [birth year] ?Age/Sex: 48/F ?Unit#: [id number] ? Loc: AGO ? Status: REG POV ?? Reg Date: 01/09/13 ? Pt.Phone Number: ? ----- ------- Specimen: [id number] ?STATUS: SOUT ?Spec Date:01/09/13 ? Physician Copies: ?Ciro Best DO Tissues: ? Cervical/Endo Pap ? CPT: 09302 ?? Units: ??1 ----- ------- ? CYTOLOGY DIAGNOSIS SPECIMEN ADEQUACY: ?Satisfactory for evaluation. Transformation zone component present. GENERAL CATEGORIZATION: ? OTHER, See Interpretation. DESCRIPTIVE DIAGNOSIS: ? Endometrial cells present in a woman equal to or greater than 40 years. ? Negative for Intraepithelial Lesion or Malignancy. RECOMMENDATIONS/COMMENTS: ?? Benign appearing endometrial cells on Pap tests are usually a normal finding in women with regular menstrual cycles, especially if the Pap was collected during the first half of the menstrual cycle. ??Endometrial cells after the age of 40, particularly out of phase or after menopause, may be associated with benign endometrium, hormonal alterations and, less commonly, with endometrial/uterine abnormalities. Clinical correlation is recommended. Endometrial cells compatible with the stated LMP. ----- ------- ORDER QUERIES: LMP: 01/05/13- WNL ? N Post ? N ??PREVIOUS ATYPICAL: N BCP/HRT? N Rad Rx? N IUD? N ??PAP PLUS HPV? N ??REFLEX TO HR-HPV IF ASCUS ?? REFLEX TO HPV 16/18 IF HPV POS/PAP NEG ?? HPV REGARDLESS?RFLX HPV IF LSIL ?? IF ASCUS DO HPV? Y Signed ____(signature on file)____ Shahida Melendez M.D. 01/14/13 By the signature above, the attending physician certifies that he/she has personally conducted a gross and/or microscopic examination of the described specimens and rendered or confirmed the above diagnosis. Test Performed by [facility], [address] [facility] [address] Stencil Sprayer: Shahida Melendez MD PHD ----- ------- us Ciro Best DO PATHOLOGY ORDERABLES Final Res ult [facility] documented in this encounter Visit Diagnoses Not on filedocumented in this encounter Care Teams Licensed Loan Officer Assistant Relationship Specialty Start Date End Date Glenn Epperson MD PCP - General 07/15/15 02/28/21 documented as of this encounter
--- OUTSIDE RECORDS SUMMARY | 2024-09-05 10:01 | XMS_ITS | Encounter Summary ---
Author Organization [facility] Address [address] [place] [address] Care Team Providers Care Web Production Artist Name Role Phone NasirCiro Primary Care Provider [phone] NasirCiro carty Unavailable [phone] Unknown, Provider Primary Care Provider Unava ilable Encounter Details Date Type Department Care Team (Late st Contact Info) Description 03/02/2021 Results Only Imaging [facility] Radiology Results [address] [place], [place] [address] Heena Mccray, UX DESIGN MANAGER [address] [place], [place] [id number] Social History Tobacco Use Types Packs/Day Years Used Date Smoking Tobacco: Former Smokeless Tobacco: Never Alcohol Use Standard Drinks/Week Comments Yes 0 (1 standard drink = 0.6 oz pur e alcohol) rare Interpersonal Safety Answer Date Record ed Physically Hurt Never 04/05/2020 Verbally Threaten Not on file 04/05/2020 Comments Unknown Sex and Gender Information Value Date Recorded Sex Assigned at Not on file Legal Sex Female 18:23 EST Gender Identity Female 02/22/2023 16:40 EDT Sexual Orientation Not on file documented as of this encounter Plan of Treatment Not on file documented as of this encounter Procedures Procedure Name Priority Date/Time Associated Diagnosis Comments MA BREAST SCREENING ANTWAN BILATERAL 03/02/2021 14:31 EDT documented in this encounter Results * MA BREAST SCREENING ANTWAN BILATERAL (03/02/2021 14:31 EDT) Anatomical Region Laterality Modality Breast Bilateral Mammography 03/02/2021 14:3 1 EDT Narrative 03/02/2021 14:31 EDT ? EXAM: MAMMOGRAM/MAMMO BILATERAL SCREEN W ??EX. D/ (9645) ? CLINICAL INFORMATION: ? Z12.31 SCREENING ? INDICATION: Z12.31 SCREENING SCREENING, 2019 ? COMPARISON: ??Comparison has been made to previous images. ? TECHNIQUE: ??Full field digital whole breast 2D (C-view) and 3D CC and ? MLO views of both breasts were obtained. CAD technology was utilized. ? FINDINGS: ??The fibroglandular patterns of the breasts are normal. ? There has been no change when compared to previous mammograms and ? there is no mammographic evidence of cancer. ??There are scattered ? areas of fibroglandular density. ? FINAL ASSESSMENT: ??BILATERAL BREAST - Category 1 - Negative. Routine ? mammographic follow-up is recommended. ? These results will be communicated to your patient via a lay letter ? from Radiology. ??If any additional imaging is needed we will contact ? your patient directly. ? REPORT SIGNED IN OTHER VENDOR SYSTEM 03/02/2021 ?Reported By: Jackson Marmolejo MD ? CC: ? Transcribed Date/Time: 03/02/2021 (1888) ? Style Advisor: ? Printed Date/Time: 03/02/2021 (5211) ? PAGE 1 ? Signed Report ? Procedure Note Jackson Marmolejo MD - 03/02/2021 EXAM: MAMMOGRAM/MAMMO BILATERAL SCREEN W EX. D/ (1435) CLINICAL INFORMATION: Z12.31 SCREENING INDICATION: Z12.31 SCREENING SCREENING, 2019 COMPARISON: Comparison has been made to previous images. TECHNIQUE: Full field digital whole breast 2D (C-view) and 3D CCand MLO views of both breasts were obtained. CAD technology wasutilized. FINDINGS: The fibroglandular patterns of the breasts are normal. There has been no change when compared to previous mammograms and there is no mammographic evidence of cancer. There are scattered areas of fibroglandular density. FINAL ASSESSMENT: BILATERAL BREAST - Category 1 - Negative.Routine mammographic follow-up is recommended. These results will be communicated to your patient via a lay letter from Radiology. If any additional imaging is needed we willcontact your patient directly. REPORT SIGNED IN OTHER VENDOR SYSTEM 03/02/2021 Reported By: Jackson Marmolejo MD CC: Transcribed Date/Time: 03/02/2021 (1431) Style Advisor: Printed Date/Time: 03/02/2021 (1498) PAGE 1 Signed Report Heena Mccray UX DESIGN MANAGER IMG MAMMOGRAPHY ORDERABLES Fi nal Result documented in this encounter Visit Diagnoses Not on filedocumented in this encounter Care Teams Web Production Artist Relationship Specialty Start Date End Date Ciro Best DO [address] [facility], [address] [place] [address] PCP - General Obstetrics and Gynecology 03/01/21 9/2 04/26 Unknown, Provider, [address] [facility], [address] [place] [address] PCP - General 06/02/23 Ciro Best DO [address] [place] [address], [address] [place] [address] Obstetrics and Gynecology 06/02/23 documented as of this encounter
--- OUTSIDE RECORDS SUMMARY | 2024-09-05 10:01 | XMS_ITS | Encounter Summary ---
Author Organization [facility] Address [address] [place] [address] Care Team Providers Care Third Miller Name Role Phone Glenn Epperson MD Primary Care Provider Un available Reason for Visit * Reason Onset Date Comments Biopsy Results 02/07/2019 Encounter Details Date Type Department Care Team (Late st Contact Info) Description 02/07/2019 Telephone [facility] General Surgery - [place] [address] [address] Geo Tuttle MD [address] [address] Biopsy Results Social History Tobacco Use Types Packs/Day Years Used Date Smoking Tobacco: Former Smokeless Tobacco: Never Alcohol Use Standard Drinks/Week Comments Yes 0 (1 standard drink = 0.6 oz pur e alcohol) rare Comments Unknown Sex and Gender Information Value Date Recorded Sex Assigned at Not on file Legal Sex Female 18:23 EST Gender Identity Female 02/22/2023 16:40 EDT Sexual Orientation Not on file documented as of this encounter Miscellaneous Notes * Telephone Encounter - Geo Tuttle MD - 02/07/2019 0853 EDT Biopsy results are benign and c/w fibrosis. Not an issue. documented in this encounter Plan of Treatment Not on file documented as of this encounter Visit Diagnoses Not on filedocumented in this encounter Care Teams Third Miller Relationship Specialty Start Date End Date Glenn Epperson MD PCP - General 07/15/15 02/28/21 documented as of this encounter
--- OUTSIDE RECORDS SUMMARY | 2024-09-05 10:01 | XMS_ITS | Encounter Summary ---
Author Organization [facility] Address [address] [place] [address] Care Team Providers Care Cloth Measurer Machine Name Role Phone Nasir Ciro Primary Care Provider [phone] NasirCiro carty Unavailable [phone] Unknown, Provider Primary Care Provider Unava ilable Encounter Details Date Type Department Care Team (Late st Contact Info) Description 12/28/2021 Lab Requisition [facility] Pathology & Laboratory Medicine - [facility] [address] [place], [place] [id number] Outr Resulting Lab, Provider Social History Tobacco Use Types Packs/Day Years [...] Procedure Name Priority Date/Time Associated Diagnosis Comments ZZCOVID-19 TEST [facility] PCR Today 12/28/2021 12:00 EDT COVID-19 TESTING Routine 12/28/2021 12:0 0 EDT documented in this encounter Results * COVID-19 TEST [facility] PCR (12/28/2021 12:00 EDT) Swab 12/28/2021 12:0 0 EDT 12/29/2021 16:24 EDT us Provider Outr Resulting Lab MICROBIOLOGY - GENER AL ORDERABLES Final Result [facility] [address] [place] [address] * COVID-19 TESTING (12/28/2021 12:00 EDT) COVID-19 rt-PCR Result Negative Negative 12/30/2021 11:39 EDT [facility] Comment: This test has not been FDA cleared or approved. This test has been authorized by FDA under an EUA for use by authorized laboratories. This test has been authorized only for detection of nucleic acid from 2019-nCoV, not for any other viruses or pathogens. This test is only authorized for the duration of the declaration that circumstances exist justifying the authorization of emergency use of in vitro diagnostic tests for detection and/or diagnosis of 2019-nCoV under section 564(b)(1) of Act, 21 U.S.C ?? 360bbb-3(b) (1), unless the authorization is terminated or revoked sooner. Negative results do not preclude 2019-nCoV infection and should not be used as the sole basis for treatment or other patient management decisions. Negative results must be combined with clinical observations, patient history, and epidemiological information. Testing was performed using the susan SARS-CoV-2 assay ([employer] on the Susan 6800 System Performing Lab Susan [address] [facility] 12/30/2021 11:39 EDT [facility] Swab 12/28/2021 12:0 0 EDT 12/29/2021 16:24 EDT us Provider Outr Resulting Lab MICROBIOLOGY - GENER AL ORDERABLES Final Result [facility] [address] [place] [address] documented in this encounter Visit Diagnoses Not on filedocumented in this encounter Care Teams Cloth Measurer Machine Relationship Specialty Start Date End Date Ciro Best DO [address] [facility], [address] [place] [address] PCP - General Obstetrics and Gynecology 03/01/21 904/26 Unknown, Provider, [address] [facility], [address] [place] [address] PCP - General 06/02/23 Ciro Best DO [address] [place] [address], [address] [place] [address] Obstetrics and Gynecology 06/02/23 documented as of this encounter
--- OUTSIDE RECORDS SUMMARY | 2024-09-05 10:01 | XMS_ITS | Encounter Summary ---
Author Organization [facility] Address [address] [place] [address] Care Team Providers Care Batting Machine Operator Name Role Phone WittCiro carty Primary Care Provider [phone] Reason for Referral * Radiology Services (Routine/Next Available) - Authorization Not Required Specialty Diagnoses / Procedures Referred By Contac t Referred To Contact Diagnoses Encounter for other screening for malignant neoplasm of breast Procedures MA BREAST SCREENING ANTWAN BILATERAL Heena Mccray NP [address] [place] [address] Phone: tel: fax: [facility] Referral ID Status Reason Start Date Expiration Date Visits Requested Visits Authorized [id number] Authorization Not Required 02/07/2023 1 1 Reason for Visit * Radiology Services (Routine/Next Available) - Authorization Not Required Specialty Diagnoses / Procedures Referred By Contac t Referred To Contact Diagnoses Encounter for other screening for malignant neoplasm of breast Procedures MA BREAST SCREENING ANTWAN BILATERAL Heena Mccray NP [address] [place] [address] Phone: tel: fax: [facility] [place] [facility] Referral ID Status Reason Start Date Expiration Date Visits Requested Visits Authorized [id number] Authorization Not Required 02/07/2023 1 1 Encounter Details Date Type Department Care Team (Latest Contact Info) Description 02/22/2023 16:40 EDT - 02/22/2023 23:59 EDT Hospital Encounter [facility] Mammography [address] [place] [address] Encounter for other screening for malignant neoplasm of breast Discharge Disposition: [...] Comments MA BREAST SCREENING ANTWAN BILATERAL Routine 02/22/2023 17:04 EDT Encounter for other screening for malignant neoplasm of breast documented in this encounter Results * MA BREAST SCREENING ANTWAN BILATERAL (02/22/2023 17:04 EDT) Anatomical Region Laterality Modality Breast Bilateral Mammography 02/24/2023 9:36 EDT Impressions 02/24/2023 9:36 EDT Negative, no evidence of malignancy. RECOMMENDATION: Routine screening mammography is recommended. OVERALL ASSESSMENT: BI-RADS 1: Negative These results will be communicated to your patient via a lay letter from Radiology. If any additional imaging is needed we will contact your patient directly. Narrative 02/24/2023 9:36 EDT MA BREAST SCREENING ANTWAN BILATERAL ??02/22/2023 5:10 PM History: ROUTINE SCREENING Comparison: ??Comparison has been made to previous images. Technique: Routine 3D tomosynthesis with synthesized 2D views with CAD Bilateral Breast Composition: There are scattered areas of fibroglandular density. Bilateral Breast Findings: ??No significant masses, calcifications or other abnormalities are seen. Procedure Note Jackson Marmolejo MD - 02/24/2023 MA BREAST SCREENING ANTWAN BILATERAL 02/22/2023 5:10 PM History: ROUTINE SCREENING Comparison: Comparison has been made to previous images. Technique: Routine 3D tomosynthesis with synthesized 2D views with CAD Bilateral Breast Composition: There are scattered areas of fibroglandulardensity. Bilateral Breast Findings: No significant masses, calcifications or otherabnormalities are seen. IMPRESSION Negative, no evidence of malignancy. RECOMMENDATION: Routine screening mammography is recommended. OVERALL ASSESSMENT: BI-RADS 1: Negative These results will be communicated to your patient via a lay letter fromRadiology. If any additional imaging is needed we will contact yourpatient directly. Heena Mccray NP IMG MAMMOGRAPHY ORDERABLES Fi nal Result documented in this encounter Visit Diagnoses Diagnosis Encounter for other screening for malignant neoplasm of breast documented in this encounter Care Teams Batting Machine Operator Relationship Specialty Start Date End Date Ciro Best DO [address] [place] [address], [address] [place] [address] PCP - General Obstetrics and Gynecology 03/01/21 9/2 04/26 documented as of this encounter
--- OUTSIDE RECORDS SUMMARY | 2024-09-05 10:01 | XMS_ITS | Encounter Summary ---
Author Organization [facility] Address [address] [place] [address] Care Team Providers Care Gate Cutter Name Role Phone Unavailable Primary Care Provider Unavailabl e Encounter Details Date Type Department Care Team (Late st Contact Info) Description 07/05/1999 13:36 EST Hospital Encounter [facility] [address] [place] [address] Ciro Best, [address] [facility], [address] [place] [phone] Social History Tobacco Use Types Packs/Day Years [...]
--- OUTSIDE RECORDS SUMMARY | 2024-09-05 10:01 | XMS_ITS | Encounter Summary ---
Author Organization [facility] Address [address] [place] [address] Care Team Providers Care Shipping Processor Name Role Phone Vera Epperson MD Primary Care Provider Un available Reason for Visit * Reason Comments Abnormal Radiology Findings * Consult (3 - 10 Business Days) - Closed Specialty Diagnoses / Procedures Referred By Kacey wilkinson Referred To Contact General Surgery Diagnoses Abnormal mammogram Erika Shepherd NP [facility] Phone: tel: fax: [facility] Surgery [address] [address] Phone: tel: fax: Referral ID Status Reason Start Date Expiration Date Visits Re quested Visits Authorized [id number] Closed 1 1 Encounter Details Date Type Department Care Team (Late st Contact Info) Description 02/04/2019 14:[address] [facility] Surgery [address] [address] Geo Tuttle MD [address] [place] [phone] Abnormal mammogram of left breast (Primary Dx); Abnormal ultrasound of breast Social History Tobacco Use Types Packs/Day Years [...] on file documented as of this encounter Last Filed Vital Signs Vital Sign Reading Time Taken Comments Blood Pressure 129/79 02/04/2019 1404 EDT Pulse 77 02/04/2019 1404 EDT Temperature - - Respiratory Rate - - Oxygen Saturation - - Inhaled Oxygen Concentration - - Weight 104.3 kg (230 lb) 02/04/2019 1404 EDT Height 172.7 cm (5' 8) 02/04/2019 1404 EDT Body Mass Index 34.97 02/04/2019 1404 EDT documented in this encounter Progress Notes * Geo Tuttle MD - 02/04/2019 1400 EDT Images from the original note were not included. [facility] PREOPERATIVE HISTORY AND PHYSICAL EXAMINATION Date of Service: 02/04/2019 PROBLEM: Abnormal mammogram. SUBJECTIVE: The patient is a 48 y.o. White female, who underwent a recent mammogram that revealed an abnormality in the left breast. This lesion is located in the lower inner quadrant aspect of the breast. She denies pain in this area. The patient has not felt any nodules or masses in this area. She reports no nipple discharge. There has not been any trauma to this area. An US showed a corresponding lesion. Of note her mother and grandmother both had breast cancer. Her mother was treated and doing well. History reviewed. No pertinent past medical history. History reviewed. No pertinent surgical history. family history is not on file. Current Outpatient Medications: aspirin chewable 81 mg tablet lisinopril (PRINIVIL, ZESTRIL) 10 mg tablet metFORMIN (GLUCOPHAGE) 1,000 mg tablet pravastatin (PRAVACHOL) 20 mg tablet No current facility-administered medications for this visit. Patient has no known allergies. 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 Lastly she has taken oral contraceptives for 6 years. OBJECTIVE: On physical exam, she is no apparent distress, well-nourished and obese BP 129/79 Pulse 77 Ht 172.7 cm (68) Wt (!) 104.3 kg (230 lb) BMI 34.97 kg/m?? 129/79 HEENT: Normocephalic Atraumatic EYES: EOMI, wears glasses no adenopathy EARS, NOSE, MOUTH AND THROAT: mucus membranes moist RESPIRATORY: clear to auscultation bilaterally BREAST: normal appearance, no masses or tenderness, Inspection negative, No nipple retraction or dimpling, No nipple discharge or bleeding, large and pendulaous CARDIAC: regular rate and rhythm ABDOMEN: Bowel sounds present and No tenderness or masses, organomegaly or peritoneal signs EXTREMITIES: Extremities warm to touch, pink, with no edema. NEUROLOGIC/PSYCHIATRIC: no focal deficitsnormal affect I reviewed the mammograms and US with the patient and mother. ASSESSMENT: Abnormal left mammogram with associated US findings. PLAN: 1. I discussed and reviewed with the patient that the lesion is likely to be benign based on it's characteristics. However, there is a 10% chance that this could represent a malignancy and therefore warrants further investigation. 2. I have recommended she undergo an US breast biopsy. I have discussed this procedure with her at length. I discussed with her that the biggest risks are bleeding, infection or inability to localizethe lesion. I also discussed with her that I would place a small metal clip in the breast to vera the site of the biopsy. Lastly I discussed options, such as watchful monitoring. She elects to undergo the biopsy. 3. This will be scheduled for today . CORE NEEDLE BIOPSY PROCEDURE: The patient was in the supine position and the left breast was cleansed with betadine. The US was used to locate the lesion in the 8 o'clock utilizing a 12 MHz probe. The skin was anesthetized with 1% lidocaine. A small incision was made in the breast with an 11 blade. A 14 gauge core needle biopsywas used to obtain 3 samples with US guidance. A small metal clip/marker was deployed in the biopsycavity with US guidance. Pressure was held over the incision site to achieve hemostasis. Steri strips,guaze and Tegaderm dressing covered the incision. The patient tolerated the well. She was given wound care instructions and will be notified of the biopsy results when available. documented in this encounter Plan of Treatment Scheduled Orders Name Type Priority Associated Diagnoses Orde r Schedule SURGICAL PATHOLOGY- ORDER ONLY Pathology Routine Abnormal Mammogram Of Left Breast Abnormal Ultrasound Of Breast Ordered: 02/04/2019 documented as of this encounter Visit Diagnoses Diagnosis Abnormal mammogram of left breast- Primary Abnormal ultrasound of breast Other (abnormal) findings on radiological examination of breast documented in this encounter Discontinued Medications Medication Sig Discontinue Reason Start Date End Da te MULTIVITAMIN ORAL Take by mouth. Error 02/04/2019 documented as of this encounter Historical Medications * This list may reflect changes made after this encounter. lisinopril (PRINIVIL, ZESTRIL) 10 mg tablet Take 10 mg by mouth daily. pravastatin (PRAVACHOL) 20 mg tablet Take 20 mg by mouth daily. added in this encounter Care Teams Shipping Processor Relationship Specialty Start Date End Date Vera Epperson MD PCP - General 07/15/15 02/28/21 documented as of this encounter
--- OUTSIDE RECORDS SUMMARY | 2024-09-05 10:01 | XMS_ITS | Encounter Summary ---
Author Organization [facility] Address [address] [place] [address] Care Team Providers Care Food Manager Name Role Phone Unavailable Primary Care Provider Unavailabl e Encounter Details Date Type Department Care Team (Late st Contact Info) Description 11/12/2002 16:42 EST Hospital Encounter [facility] - Other [address], [place] [address] Isabel Casey MD [address] [facility] [place] [phone] Unknown, Provider, Social History Tobacco Use Types Packs/Day Years [...] Procedure Name Priority Date/Time Associated Diagnosis Comments RAD ULTRASOUND Routine 11/26/2002 15:15 EST GROUP B STREPTOCOCCUS SUSCEPTIBILITY Routine 11/12/2002 16:00 EST documented in this encounter Results * RAD ULTRASOUND (11/26/2002 15:15 EST) Anatomical Region Laterality Modality Other 11/26/2002 15:1 5 EST Narrative 05/19/2009 2:25 EDT OB U/S F/U, GDM Please refer to the separate [facility] report. Procedure Note Thompson Macedo MD - 05/19/2009 OB U/S F/U, GDM Please refer to the separate [facility] report. us Isabel Casey MD IM US ORDERABLES Final Resu lt * GROUP B STREPTOCOCCUS SUSCEPTIBILITY (11/12/2002 16:00 EST) Specimen Description Vaginal and Rectal [facility] Result NO GROUP B BETA STREPTOCOCCI ISOLATED [facility] Report Status Final [id number] [facility] 11/12/2002 16:0 0 EST 11/13/2002 8:44 EST us Isabel Casey MD H[facility]OR[facility] FOR SQ LOAD F inal Result [facility] [address] [place] [address] documented in this encounter Visit Diagnoses Not on filedocumented in this encounter
--- OUTSIDE RECORDS SUMMARY | 2024-09-05 10:01 | XMS_ITS | Encounter Summary ---
Author Organization [facility] Address [address] [place] [address] Care Team Providers Care Awning Hanger Helper Name Role Phone Glenn Epperson MD Primary Care Provider Un available Encounter Details Date Type Department Care Team (Late st Contact Info) Description 01/29/2019 Historical Results Only [facility] Radiology Results [address] [place], [place] [id number] Erika Shepherd NP CN [address] [facility] [place] [address] Social History Tobacco Use Types [...] Priority Date/Time Associated Diagnosis Comments MA BREAST DIAGNOSTIC UNILATERAL ANTWAN 01/29/2019 10:47 EDT US BREAST LIMITED UNILATERAL 01/29/2019 10:47 EDT documented in this encounter Results * US BREAST LIMITED UNILATERAL (01/29/2019 10:47 EDT) Anatomical Region Laterality Modality Breast Other 01/29/2019 10:4 7 EDT Narrative 01/29/2019 10:47 EDT ? EXAM: ULTRASOUND/UNILAT BREAST CALL BACK ??EX. D/ ([id number]) ? CLINICAL INFORMATION: ? LEFT BREAST, CYSTIC VS SOLID ? INDICATION: LEFT BREAST, CYSTIC VS SOLID LEFT BREAST SUSP. FINDINGS, ? CYSTIC/SOLID ? DIAGNOSTIC LEFT BREAST MAMMOGRAM: Full field ML and spot MLO and CC ? views were obtained. CAD technology and breast tomosynthesis was ? utilized. ? FINDINGS: There is a persistent left lower breast lobular density ? with partially circumscribed partially obscured margins measuring ? approximately 1.6 cm in diameter. The remaining breast parenchyma ? appears unremarkable. Complex tissue is seen in the upper breast, ? consistent with normal overlapping tissue, not present on the MLO ? 01/17/2019 exam. No suspicious calcifications or architectural ? distortion is seen. ? DIAGNOSTIC LEFT BREAST ULTRASOUND: The inferior medial left breast ? was scanned covering from the 6-9 o'clock position. The axilla was ? also included. ? FINDINGS: At the 7 o'clock position, 3 cm from the nipple, there is a ? lobular hypoechoic mass with echogenic shadowing measuring ? approximately 1.6 x 1.1 x 0.8 cm. The adjacent breast parenchyma ? appears unremarkable. In the axilla, a lymph node is seen with a ? normal fatty hilum. ? IMPRESSION: ??This is a ??left breast mammogram and ultrasound with a ? suspicious finding (ACR category 4). There is an inferior breast ? lobular hypoechoic mass, for which biopsy is required. ? These findings and recommendations were discussed directly with the ? patient at 10:02 AM on 01/29/2019. ? FINAL ASSESSMENT: ??DIAGNOSTIC LEFT BREAST MAMMOGRAM/ULTRASOUND - ? BI-RADS Category 4 - Suspicious findings; biopsy should be ? considered. ? These results will be communicated to your patient via a lay letter ? from Radiology. ??If any additional imaging is needed we will contact ? your patient directly. ? A preliminary report was given to Letha at the office of Erika ? ABRIL Shepherd, on 01/29/2019 at 10:45 AM by Keysha. ? REPORT SIGNED IN OTHER VENDOR SYSTEM 01/31/2019 ?Reported By: Robert Coker MD ? CC: ? Transcribed Date/Time: 01/29/2019 (1047) ? Adjunct Latin Professor: ? Printed Date/Time: 05/23/2019 (0243) ? PAGE 1 ? Signed Report ? Procedure Note Robert Coker MD - 07/09/2019 EXAM: ULTRASOUND/UNILAT BREAST CALL BACK EX. D/ (0957) CLINICAL INFORMATION: LEFT BREAST, CYSTIC VS SOLID INDICATION: LEFT BREAST, CYSTIC VS SOLID LEFT BREAST SUSP.FINDINGS, CYSTIC/SOLID DIAGNOSTIC LEFT BREAST MAMMOGRAM: Full field ML and spot MLO and CC views were obtained. CAD technology and breast tomosynthesis was utilized. FINDINGS: There is a persistent left lower breast lobular density with partially circumscribed partially obscured margins measuring approximately 1.6 cm in diameter. The remaining breast parenchyma appears unremarkable. Complex tissue is seen in the upper breast, consistent with normal overlapping tissue, not present on the MLO 01/17/2019 exam. No suspicious calcifications or architectural distortion is seen. DIAGNOSTIC LEFT BREAST ULTRASOUND: The inferior medial left breast was scanned covering from the 6-9 o'clock position. The axilla was also included. FINDINGS: At the 7 o'clock position, 3 cm from the nipple, there matthew lobular hypoechoic mass with echogenic shadowing measuring approximately 1.6 x 1.1 x 0.8 cm. The adjacent breast parenchyma appears unremarkable. In the axilla, a lymph node is seen with a normal fatty hilum. IMPRESSION: This is a left breast mammogram and ultrasound with a suspicious finding (ACR category 4). There is an inferior breast lobular hypoechoic mass, for which biopsy is required. These findings and recommendations were discussed directly with the patient at 10:02 AM on 01/29/2019. FINAL ASSESSMENT: DIAGNOSTIC LEFT BREAST MAMMOGRAM/ULTRASOUND - BI-RADS Category 4 - Suspicious findings; biopsy should be considered. These results will be communicated to your patient via a lay letter from Radiology. If any additional imaging is needed we willcontact your patient directly. A preliminary report was given to Letha at the office of Erika Shepherd NP, on 01/29/2019 at 10:45 AM by Keysha. REPORT SIGNED IN OTHER VENDOR SYSTEM 01/31/2019 Reported By: Robert Coker MD CC: Transcribed Date/Time: 01/29/2019 (1047) Adjunct Latin Professor: Printed Date/Time: 05/23/2019 (0244) PAGE 1 Signed Report us Erika Shepherd NP CNM IMG US ORDERABL ES Final Result * MA BREAST DIAGNOSTIC UNILATERAL ANTWAN (01/29/2019 10:47 EDT) Anatomical Region Laterality Modality Breast Other 01/29/2019 10:4 7 EDT Narrative 01/29/2019 10:47 EDT ? EXAM: MAMMOGRAM/MAMMO DX CALL BACK UNI W/ EX. D/ (0935) ? CLINICAL INFORMATION: ? LEFT BREAST, SUSP FINDINGS ON INITIAL ? INDICATION: LEFT BREAST, CYSTIC VS SOLID LEFT BREAST SUSP. FINDINGS, ? CYSTIC/SOLID ? DIAGNOSTIC LEFT BREAST MAMMOGRAM: Full field ML and spot MLO and CC ? views were obtained. CAD technology and breast tomosynthesis was ? utilized. ? FINDINGS: There is a persistent left lower breast lobular density ? with partially circumscribed partially obscured margins measuring ? approximately 1.6 cm in diameter. The remaining breast parenchyma ? appears unremarkable. Complex tissue is seen in the upper breast, ? consistent with normal overlapping tissue, not present on the MLO ? 01/17/2019 exam. No suspicious calcifications or architectural ? distortion is seen. ? DIAGNOSTIC LEFT BREAST ULTRASOUND: The inferior medial left breast ? was scanned covering from the 6-9 o'clock position. The axilla was ? also included. ? FINDINGS: At the 7 o'clock position, 3 cm from the nipple, there is a ? lobular hypoechoic mass with echogenic shadowing measuring ? approximately 1.6 x 1.1 x 0.8 cm. The adjacent breast parenchyma ? appears unremarkable. In the axilla, a lymph node is seen with a ? normal fatty hilum. ? IMPRESSION: ??This is a ??left breast mammogram and ultrasound with a ? suspicious finding (ACR category 4). There is an inferior breast ? lobular hypoechoic mass, for which biopsy is required. ? These findings and recommendations were discussed directly with the ? patient at 10:02 AM on 01/29/2019. ? FINAL ASSESSMENT: ??DIAGNOSTIC LEFT BREAST MAMMOGRAM/ULTRASOUND - ? BI-RADS Category 4 - Suspicious findings; biopsy should be ? considered. ? These results will be communicated to your patient via a lay letter ? from Radiology. ??If any additional imaging is needed we will contact ? your patient directly. ? A preliminary report was given to Letha at the office of Erika ? ABRIL Shepherd, on 01/29/2019 at 10:45 AM by Keysha. ? REPORT SIGNED IN OTHER VENDOR SYSTEM 01/31/2019 ?Reported By: Robert Coker MD ? CC: ? Transcribed Date/Time: 01/29/2019 (1047) ? Adjunct Latin Professor: [email or web address] ? Printed Date/Time: 05/23/2019 (0243) ? PAGE 1 ? Signed Report ? Procedure Note Robert Coker MD - 07/09/2019 EXAM: MAMMOGRAM/MAMMO DX CALL BACK UNI W/ EX. D/ (0935) CLINICAL INFORMATION: LEFT BREAST, SUSP FINDINGS ON INITIAL INDICATION: LEFT BREAST, CYSTIC VS SOLID LEFT BREAST SUSP.FINDINGS, CYSTIC/SOLID DIAGNOSTIC LEFT BREAST MAMMOGRAM: Full field ML and spot MLO and CC views were obtained. CAD technology and breast tomosynthesis was utilized. FINDINGS: There is a persistent left lower breast lobular density with partially circumscribed partially obscured margins measuring approximately 1.6 cm in diameter. The remaining breast parenchyma appears unremarkable. Complex tissue is seen in the upper breast, consistent with normal overlapping tissue, not present on the MLO 01/17/2019 exam. No suspicious calcifications or architectural distortion is seen. DIAGNOSTIC LEFT BREAST ULTRASOUND: The inferior medial left breast was scanned covering from the 6-9 o'clock position. The axilla was also included. FINDINGS: At the 7 o'clock position, 3 cm from the nipple, there matthew lobular hypoechoic mass with echogenic shadowing measuring approximately 1.6 x 1.1 x 0.8 cm. The adjacent breast parenchyma appears unremarkable. In the axilla, a lymph node is seen with a normal fatty hilum. IMPRESSION: This is a left breast mammogram and ultrasound with a suspicious finding (ACR category 4). There is an inferior breast lobular hypoechoic mass, for which biopsy is required. These findings and recommendations were discussed directly with the patient at 10:02 AM on 01/29/2019. FINAL ASSESSMENT: DIAGNOSTIC LEFT BREAST MAMMOGRAM/ULTRASOUND - BI-RADS Category 4 - Suspicious findings; biopsy should be considered. These results will be communicated to your patient via a lay letter from Radiology. If any additional imaging is needed we willcontact your patient directly. A preliminary report was given to Letha at the office of Erika Shepherd NP, on 01/29/2019 at 10:45 AM by Keysha. REPORT SIGNED IN OTHER VENDOR SYSTEM 01/31/2019 Reported By: Robert Coker MD CC: Transcribed Date/Time: 01/29/2019 (1047) Adjunct Latin Professor: Printed Date/Time: 05/23/2019 (5717) PAGE 1 Signed Report Erika Shepherd NP CNM IMG MAMMOGRAPHY ORDERABLES Final Result documented in this encounter Visit Diagnoses Not on filedocumented in this encounter Care Teams Awning Hanger Helper Relationship Specialty Start Date End Date Glenn Epperson MD PCP - General 07/15/15 02/28/21 documented as of this encounter
--- OUTSIDE RECORDS SUMMARY | 2024-09-05 10:01 | XMS_ITS | Encounter Summary ---
Author Organization [facility] Address [address] [place] [address] Care Team Providers Care Cco Name Role Phone Unavailable Primary Care Provider Unavailabl e Encounter Details Date Type Department Care Team (Late st Contact Info) Description 08/26/2002 Results Only [facility] - Map conversion [address] [place] [address] Willam Eng MD [address] [place] [address] Social History Tobacco Use Types Packs/Day Years [...] Procedure Name Priority Date/Time Associated Diagnosis Comments COMPLETE BLOOD COUNT Routine 08/26/2002 14:34 EST HEMOGLOBIN A1C Routine 08/26/2002 14:34 EST documented in this encounter Results * HEMAGRAM (08/26/2002 14:34 EST) WBC 12.28 4.0 - 12.4 K/cmm [facility] RBC 4.34 3.86 - 5.04 M/cmm [facility] Hemoglobin 12.6 11.6 - 15.2 gm/dl [facility] HCT 36.9 34.9 - 44.4 % [facility] MCV 85 81 - 98 fl [facility] MCH 29.0 26.7 - 33.3 pg [facility] MCHC 34.1 32.1 - 35.9 gm/dl [facility] PLT 306 141 - 320 K/cmm [facility] RDW-CV 13.6 11.7 - 14.6 % [facility] 08/26/2002 14:3 4 EST 08/26/2002 14:36 EST Willam Eng MD HEMATOLOGY & PF4 ORDERABLES Fi nal Result Performing Organization Address City/[facility] Co de Phone Number [facility] [address] [place] [address] * HEMOGLOBIN A1C (08/26/2002 14:34 EST) Hemoglobin A1C 4.6 % [facility] Comment: <6% Normal Range <7% Recommended goal by ADA guidelines 7-8% Suboptimal by ADA guidelines >8% Further action suggested by ADA guidelines 08/26/2002 14:3 4 EST 08/26/2002 14:36 EST Willam Eng MD CHEMISTRY & BLOOD GAS ORDERABL ES Final Result Performing Organization Address [facility] Co de Phone Number [facility] [address] [place] [address] documented in this encounter Visit Diagnoses Not on filedocumented in this encounter
--- OUTSIDE RECORDS SUMMARY | 2024-09-05 10:01 | XMS_ITS | Encounter Summary ---
Author Organization [facility] Address [address] [place] [address] Care Team Providers Care Product Test Specialist Name Role Phone Unavailable Primary Care Provider Unavailabl e Encounter Details Date Type Department Care Team (Late st Contact Info) Description 12/05/2002 8:28 EST - 12/07/2002 11:59 EST Hospital Encounter [facility] Mother/Baby Unit [address], [place] [address] Naheed Eller MD [address] [facility], [facility] [address] [place] [address] Discharge Disposition: Home or Self Care Social [...] Procedure Name Priority Date/Time Associated Diagnosis Comments GLUCOSE, GLUCOMETER Routine 12/07/2002 7 :34 EST GLUCOSE, GLUCOMETER Routine 12/06/2002 2 0:30 EST GLUCOSE, GLUCOMETER Routine 12/06/2002 1 4:06 EST GLUCOSE, GLUCOMETER Routine 12/06/2002 1 0:00 EST GLUCOSE, GLUCOMETER Routine 12/06/2002 7 :18 EST GLUCOSE, GLUCOMETER Routine 12/05/2002 1 9:29 EST GLUCOSE, GLUCOMETER Routine 12/05/2002 1 6:25 EST GLUCOSE, GLUCOMETER Routine 12/05/2002 1 3:07 EST HOLD Routine 12/05/2002 10:32 EST GLUCOSE, PLASMA Routine 12/05/2002 10:32 EST COMPLETE BLOOD COUNT Routine 12/05/2002 10:32 EST documented in this encounter Results * GLUCOSE, GLUCOMETER (12/07/2002 7:34 EST) Glucose, Fingerstick 110 70 - 110 MG/DL [facility] Patient Registration Specialist ID [id number] Test Performed by Nursing Services [facility] 12/07/2002 7:34 EST 12/07/2002 11:59 EST us Naheed Eller MD CHEMISTRY & BLOOD GAS ORDE IMMANUEL Final Result Performing Organization Address [facility] Co de Phone Number [facility] [address] [place] [address] * (ABNORMAL) GLUCOSE, GLUCOMETER (12/06/2002 20:30 EST) Glucose, Fingerstick 148(H) 70 - 110 MG/DL [facility] Patient Registration Specialist ID [id number] Test Performed by Nursing Services [facility] 12/06/2002 20:3 0 EST 12/07/2002 11:57 EST Naheed Eller MD CHEMISTRY & BLOOD GAS ORDE IMMANUEL Final Result Performing Organization Address City/[facility]/ZIP Co de Phone Number [facility] [address] [place] [address] * (ABNORMAL) GLUCOSE, GLUCOMETER (12/06/2002 14:06 EST) Glucose, Fingerstick 135(H) 70 - 110 MG/DL [facility] Patient Registration Specialist ID [id number] Test Performed by Nursing Services [facility] 12/06/2002 14:0 6 EST 12/07/2002 11:56 EST us Naheed Eller MD CHEMISTRY & BLOOD GAS ORDE RABLES Final Result Performing Organization Address [facility]/ZIP Co de Phone Number [facility] [address] [place] [address] * (ABNORMAL) GLUCOSE, GLUCOMETER (12/06/2002 10:00 EST) Glucose, Fingerstick 115(H) 70 - 110 MG/DL [facility] Patient Registration Specialist ID [id number] Test Performed by Nursing Services [facility] 12/06/2002 10:0 0 EST 12/06/2002 13:09 EST us Naheed Eller MD CHEMISTRY & BLOOD GAS ORDE RABLES Final Result Performing Organization Address [facility]/ZIP Co de Phone Number [facility] [address] [place] [address] * GLUCOSE, GLUCOMETER (12/06/2002 7:18 EST) Glucose, Fingerstick 76 70 - 110 MG/DL [facility] Patient Registration Specialist ID [id number] Test Performed by Nursing Services [facility] 12/06/2002 7:18 EST 12/06/2002 13:08 EST us Naheed Eller MD CHEMISTRY & BLOOD GAS ORDE RABLES Final Result Performing Organization Address [facility]/ZIP Co de Phone Number [facility] [address] [place] [address] * GLUCOSE, GLUCOMETER (12/05/2002 19:29 EST) Glucose, Fingerstick 84 70 - 110 MG/DL [facility] Patient Registration Specialist ID [id number] Test Performed by Nursing Services [facility] 12/05/2002 19:2 9 EST 12/05/2002 22:27 EST Naheed Eller MD CHEMISTRY & BLOOD GAS ORDE RABLES Final Result Performing Organization Address [facility] de Phone Number [facility] [address] [place] [address] * GLUCOSE, GLUCOMETER (12/05/2002 16:25 EST) Glucose, Fingerstick 73 70 - 110 MG/DL [facility] Patient Registration Specialist ID [id number] Test Performed by Nursing Services [facility] 12/05/2002 16:2 5 EST 12/05/2002 22:26 EST Naheed Eller MD CHEMISTRY & BLOOD GAS ORDE RABLES Final Result Performing Organization Address [facility] de Phone Number [facility] [address] [place] [address] * GLUCOSE, GLUCOMETER (12/05/2002 13:07 EST) Glucose, Fingerstick 93 70 - 110 MG/DL [facility] Patient Registration Specialist ID [id number] Test Performed by Nursing Services [facility] 12/05/2002 13:0 7 EST 12/05/2002 22:25 EST us Naheed Eller MD CHEMISTRY & BLOOD GAS ORDE RABLES Final Result Performing Organization Address [facility] de Phone Number [facility] [address] [place] [address] * HOLD (12/05/2002 10:32 EST) Hold Sample for coagulation will be discarded after 4 hours Hold for further testing. Specimen will be held for 30 days. [facility] 12/05/2002 10:3 2 EST 12/05/2002 10:35 EST us Naheed Eller MD CHEMISTRY & BLOOD GAS ORDE RABLES Final Result Performing Organization Address City/[facility]/ZIP Co de Phone Number [facility] [address] [place] [address] * (ABNORMAL) GLUCOSE, PLASMA (12/05/2002 10:32 EST) Glucose, Plasma 123(H) 70 - 110 mg/dl [facility] 12/05/2002 10:3 2 EST 12/05/2002 10:35 EST us Naheed Eller MD CHEMISTRY & BLOOD GAS ORDE RABLES Final Result Performing Organization Address [facility] Co de Phone Number [facility] [address] [place] [address] * HEMAGRAM (12/05/2002 10:32 EST) WBC 10.04 4.0 - 12.4 K/cmm [facility] RBC 4.36 3.86 - 5.04 M/cmm [facility] Hemoglobin 13.0 11.6 - 15.2 gm/dl [facility] HCT 37.5 34.9 - 44.4 % [facility] MCV 86 81 - 98 fl [facility] MCH 29.8 26.7 - 33.3 pg [facility] MCHC 34.7 32.1 - 35.9 gm/dl [facility] PLT 240 141 - 320 K/cmm [facility] RDW-CV 14.1 11.7 - 14.6 % [facility] 12/05/2002 10:3 2 EST 12/05/2002 10:35 EST Naheed Eller MD HEMATOLOGY & PF4 ORDERABLE S Final Result Performing Organization Address [facility] Co de Phone Number [facility] [address] [place] [address] documented in this encounter Visit Diagnoses Not on filedocumented in this encounter
--- OUTSIDE RECORDS SUMMARY | 2024-09-05 10:01 | XMS_ITS | Encounter Summary ---
Author Organization [facility] Address [address] [place] [address] Care Team Providers Care Roof Mechanic Name Role Phone Unavailable Primary Care Provider Unavailabl e Encounter Details Date Type Department Care Team (Late st Contact Info) Description 06/25/1999 9:59 EDT Hospital Encounter [facility] [address] [place] [address] Naheed Eller MD [address] [facility], [address] [place] [phone] Social History Tobacco Use Types Packs/Day Years [...]
--- OUTSIDE RECORDS SUMMARY | 2024-09-05 10:01 | XMS_ITS | Encounter Summary ---
Author Organization [facility] Address [address] [place] [address] Care Team Providers Care Fisher Weir Name Role Phone Unavailable Primary Care Provider Unavailabl e Encounter Details Date Type Department Care Team (Latest Contact Info) Description 08/26/2002 10:29 EST - 08/26/2002 11:59 EST Hospital Encounter [facility] - Other [address] [place] [address] Willam Eng MD [address] [place] [address] Unknown, Provider, Discharge Disposition: Auto Discharge Social History Tobacco Use Types Packs/Day Years Used Date Smoking Tobacco: Never Assessed Comments Unknown Sex and Gender Information Value Date Recorded Sex Assigned at Not on file Legal Sex Female 18:23 EST Gender Identity Female 02/22/2023 16:40 EDT Sexual Orientation Not on file documented as of this encounter Discharge Disposition Disposition Code Departure Means Destination Auto Discharge documented in this encounter Plan of Treatment Not on file documented as of this encounter Visit Diagnoses Not on filedocumented in this encounter
--- OUTSIDE RECORDS SUMMARY | 2024-09-05 10:01 | XMS_ITS | Encounter Summary ---
Author Organization [facility] Address [address] [place] [address] Care Team Providers Care Linux Vmware Administrator Name Role Phone Glenn Epperson MD Primary Care Provider Un available Encounter Details Date Type Department Care Team (Late st Contact Info) Description 02/04/2019 Historical Results Only [facility] [place] [address] [place] [phone] Geo Tuttle MD [address] [place] [phone] Social History Tobacco Use Types Packs/Day [...] Procedure Name Priority Date/Time Associated Diagnosis Comments SURGICAL PATHOLOGY Routine 02/04/2019 documented in this encounter Results * SURGICAL PATHOLOGY (02/04/2019) 02/04/2019 02/04/2019 15: [address] [facility] - 02/05/2019 16:19 EDT ----- ------- Name: STONE COLLAZO ? : 70 ?Age/Sex: 48/F ?Unit#: [id number] ? Loc: LAB.OPX ? Status: REG REF ?? Reg Date: 02/04/19 ? Pt.Phone Number: ? ----- ------- Specimen: [id number] ? STATUS: SOUT ?Spec Date:02/04/19 ? Physician Copies: ?Geo Tuttle MD Tissues: A ?? Breast Needle (LEFT @ 8 O'CLOCK) ? Glenn Epperson CPT: 49252 ?? Units: ??1 ?FINAL DIAGNOSIS ? BREAST, LEFT, 8 O'CLOCK, 5 CM FN, ULTRASOUND GUIDED 14G CORE BIOPSY; ? - Benign breast tissue with fibrocystic changes including a cystically dilated ? duct and stromal fibrosis, with focal pseudoangiomatous stromal ? hyperplasia-like changes. ? - Negative for atypia and malignancy. ----- ------- ?COMMENT ? Intradepartmental review was obtained. ? GROSS DESCRIPTION ? Received in formalin labeled Stone Collazo are four needle cores of ? yellow-amin fibrofatty tissue ranging in length from 0.4 to 1.3 cm. es 1 NM ?? PREOP DX/CLINICAL HISTORY ?Left breast abnormal mammogram and ultrasound at 8 o'clock, 5 cm ?from nipple Signed ____(signature on file)____ Benedict Adkins 02/05/19 ? By the signature above, the attending physician certifies that he/she has personally conducted a gross and/or microscopic examination of the described specimens and rendered or confirmed the above diagnosis. Test Performed by [facility], [address] [place] [id number] System Manager: Shahida Melendez MD PHD ----- ------- us [facility] Gunars Ziedins MD PATHOLOGY ORDERABLES F inal Result [facility] documented in this encounter Visit Diagnoses Not on filedocumented in this encounter Care Teams Linux Vmware Administrator Relationship Specialty Start Date End Date Glenn Epperson MD PCP - General 07/15/15 02/28/21 documented as of this encounter
--- OUTSIDE RECORDS SUMMARY | 2024-09-05 10:01 | XMS_ITS | Encounter Summary ---
Author Organization [facility] Address [address] [place] [address] Care Team Providers Care Eviscerator Name Role Phone AltoonaCiro carty Primary Care Provider [phone] NasirCiro carty Unavailable [phone] Unknown, Provider Primary Care Provider Unava ilable Encounter Details Date Type Department Care Team (Late st Contact Info) Description 04/08/2021 Lab Requisition [facility] Pathology & Laboratory Medicine - [facility] [address] [place] [address] Heena Mccray, FILM SPLICER [address] [place], [place] [phone] Encounter for other general examination Social History Tobacco Use Types Packs/Day Years [...] Priority Date/Time Associated Diagnosis Comments PAP TEST Today 04/06/2021 14:30 EDT Encounter for other general examination HPV DNA DETECTION WITH GENOTYPING, PCR Today 04/06/2021 14:30 EDT Encounter for other general examination documented in this encounter Results * HUMAN PAPILLOMAVIRUS (HPV) DETECTION-HIGH RISK TYPES (04/06/2021 14:30 EDT) HPV other High Risk types, PCR Negative Negative 04/16/2021 14:43 EDT [facility] Comment:No E6 or E7 mRNA is detected from HPV types 16,18,31,33,35,39,45,51,52,56,58,59,66, and 68 by game designer mediated amplification. Papanicolaou smear specimen (specimen) CERVIX UTERI STRUCTURE / Unknown 04/06/2021 14:30 EDT 04/15/2021 13:01 EDT Heena Mccray NP MICROBIOLOGY - GENERAL ORDERA BLES Final Result [facility] [address] [place] [address] * PAP TEST (04/06/2021 14:30 EDT) Specimens A. Cervix and/or Endocervix , ThinPrep Imaging System with Manual Evaluation 04/16/2021 14:43 EDT [facility] Specimen Adequacy Satisfactory for Evaluation - transformation zone component present 04/16/2021 14:43 EDT [facility] General Categorization Negative for intraepithelial lesion or malignancy 04/16/2021 14:43 EDT [facility] Descriptive Diagnosis Shift in elsi present suggestive of bacterial vaginosis. 04/16/2021 14:43 T [facility] Attestation . 04/16/2021 14:43 T [facility] at 1443 Clinical History See below 04/16/20 14:43 EDT [facility] HPV The result for the Human Papillomavirus (HPV) Detection-High Risk Types is Negative. No E6 or E7 mRNA is detected from HPV types 16,18,31,33,35,39 ,45,51,52,56,58,5 9,66, and 68 by game designer mediated amplification.Nury ting was performed on specimen [id number] and was resulted on 04/16/2021 1437 EDT by LUIS, LAB INSTRUMENT RESULTS IN 04/16/2021 14:43 EDT [facility] Performing Lab [facility] 04/16/2021 14:43 EDT [facility] Scanned Images 04/16/2021 14:43 EDT [facility] Papanicolaou smear specimen (specimen) CERVIX UTERI STRUCTURE / Unknown 04/06/2021 14:30 EDT 04/08/2021 11:14 EDT us Heena Mccray FILM SPLICER PATHOLOGY ORDERABLES Final Re sult [facility] [address] [place] [address] documented in this encounter Visit Diagnoses Diagnosis Encounter for other general examination documented in this encounter Care Teams Eviscerator Relationship Specialty Start Date End Date Ciro Best DO [address] [facility], [address] [place] [address] PCP - General Obstetrics and Gynecology 03/01/21 9/04/26 Unknown, Provider, [address] [facility], [address] [place] [address] PCP - General 06/02/23 Ciro Best DO [address] [facility] [place] [address] Obstetrics and Gynecology 06/02/23 documented as of this encounter
--- OUTSIDE RECORDS SUMMARY | 2024-09-05 10:01 | XMS_ITS | Encounter Summary ---
Author Organization [facility] Address [address] [place] [address] Care Team Providers Care Chopper Feeder Name Role Phone Unavailable Primary Care Provider Unavailabl e Encounter Details Date Type Department Care Team (Late st Contact Info) Description 07/15/2002 Results Only [facility] - Maple conversion [address] [place] [address] Willam Eng MD [address] [place] [address] Social History Tobacco Use Types Packs/Day Years [...] Procedure Name Priority Date/Time Associated Diagnosis Comments HEMOGLOBIN A1C Routine 07/15/2002 15:03 EST documented in this encounter Results * HEMOGLOBIN A1C (07/15/2002 15:03 EST) Hemoglobin A1C 5.3 % [facility] Comment: <6% Normal Range <7% Recommended goal by ADA guidelines 7-8% Suboptimal by ADA guidelines >8% Further action suggested by ADA guidelines 07/15/2002 15:0 3 EST 07/15/2002 15:05 EST us Willam Eng MD CHEMISTRY & BLOOD GAS ORDERABL ES Final Result Performing Organization Address City/State/[facility] Co de Phone Number [facility] [address] [place] [address] documented in this encounter Visit Diagnoses Not on filedocumented in this encounter
--- OUTSIDE RECORDS SUMMARY | 2024-09-05 10:01 | XMS_ITS | Encounter Summary ---
Author Organization [facility] Address [address] [place] [address] Care Team Providers Care Card Reader Name Role Phone Unavailable Primary Care Provider Unavailabl e Encounter Details Date Type Department Care Team (Late st Contact Info) Description 06/14/1999 12:43 EDT Hospital Encounter [facility] [address] [place] [address] Naheed Eller MD [address] [facility], [address] [place] [phone] Social History Tobacco Use Types Packs/Day Years [...]
--- OUTSIDE RECORDS SUMMARY | 2024-09-05 10:01 | XMS_ITS | Encounter Summary ---
Author Organization [facility] Address [address] [place] [address] Care Team Providers Care Metal Welder Name Role Phone Unavailable Primary Care Provider Unavailabl e Encounter Details Date Type Department Care Team (Latest Contact Info) Description 11/08/2002 11:27 EST - 11/08/2002 11:59 EST Hospital Encounter [facility] [place] [facility] [address] [place] [address] Ale Mendez MD Discharge Disposition: Home or Self Care [...] Date/Time Associated Diagnosis Comments GLUCOSE, GLUCOMETER Routine 11/08/2002 1 3:20 EST documented in this encounter Results * (ABNORMAL) GLUCOSE, GLUCOMETER (11/08/2002 13:20 EST) Glucose, Fingerstick 185(H) 70 - 110 MG/DL [facility] Bridge Worker ID [id number] Test Performed by Nursing Services [facility] 11/08/2002 13:2 0 EST 11/09/2002 11:30 EST us Ale Mnedez MD CHEMISTRY & BLOOD GAS ORDERA BLES Final Result Performing Organization Address City/State/[facility] Co de Phone Number [place] [phone] documented in this encounter Visit Diagnoses Not on filedocumented in this encounter
--- OUTSIDE RECORDS SUMMARY | 2024-09-05 10:01 | XMS_ITS | Encounter Summary ---
Author Organization [facility] Address [address] [place] [address] Care Team Providers Care Director Apparel Name Role Phone Glenn Epperson MD Primary Care Provider Un available Encounter Details Date Type Department Care Team (Late st Contact Info) Description 01/18/2019 Historical Results Only [facility] Radiology Results [address] [place], [place] [id number] Erika Shepherd NP CN [address] [facility], [address] [place] [address] Social History Tobacco Use Types [...] Diagnosis Comments MA BREAST SCREENING ANTWAN BILATERAL 01/18/2019 10:03 EDT documented in this encounter Results * MA BREAST SCREENING ANTWAN BILATERAL (01/18/2019 10:03 EDT) Anatomical Region Laterality Modality Breast Bilateral Other 01/18/2019 10:0 3 EDT Narrative 01/18/2019 10:03 EDT ? EXAM: MAMMOGRAM/MAMMO BILATERAL SCREEN W ??EX. D/ (1449) ? CLINICAL INFORMATION: ? Z12.31 SCREENING ? INDICATION: Z12.31 SCREENING SCREENING January 09 ? TECHNIQUE: ??Full field digital whole breast 2D (C-view) and 3D CC and ? MLO views of both breasts were obtained. CAD technology was utilized. ? FINDINGS: There is a possible nodular density in the inferior left ? breast. The remaining breast parenchyma is unremarkable. No ? additional areas of concern are seen. ? IMPRESSION: ? 1. This is a left breast mammogram with additional imaging required ? (ACR category 0). There is a possible nodular density in the lower ? breast, for which further imaging is required. There are scattered ? areas of fibroglandular density. ? 2. This is a negative right breast mammogram (ACR category 1). Right ? breast screening mammography is recommended in one year. ? FINAL ASSESSMENT: ??LEFT BREAST - BI-RADS Category 0 - Incomplete; ? additional imaging evaluation needed. ? FINAL ASSESSMENT: ??RIGHT BREAST - BI-RADS Category 1 - Negative. ? These results will be communicated to your patient via a lay letter ? from Radiology. ??If any additional imaging is needed we will contact ? your patient directly. ? REPORT SIGNED IN OTHER VENDOR SYSTEM 01/18/2019 ?Reported By: Robert Coker MD ? CC: ? Transcribed Date/Time: 01/18/2019 (1003) ? Side Seam Envelope Machine Operator: ? Printed Date/Time: 05/23/2019 (0243) ? PAGE 1 ? Signed Report ? Procedure Note Robert Coker MD - 07/09/2019 EXAM: MAMMOGRAM/MAMMO BILATERAL SCREEN W EX. D/ (1449) CLINICAL INFORMATION: Z12.31 SCREENING INDICATION: Z12.31 SCREENING SCREENING January 09 TECHNIQUE: Full field digital whole breast 2D (C-view) and 3D CCand MLO views of both breasts were obtained. CAD technology wasutilized. FINDINGS: There is a possible nodular density in the inferior left breast. The remaining breast parenchyma is unremarkable. No additional areas of concern are seen. IMPRESSION: 1. This is a left breast mammogram with additional imaging required (ACR category 0). There is a possible nodular density in the lower breast, for which further imaging is required. There are scattered areas of fibroglandular density. 2. This is a negative right breast mammogram (ACR category 1).Right breast screening mammography is recommended in one year. FINAL ASSESSMENT: LEFT BREAST - BI-RADS Category 0 - Incomplete; additional imaging evaluation needed. FINAL ASSESSMENT: RIGHT BREAST - BI-RADS Category 1 - Negative. These results will be communicated to your patient via a lay letter from Radiology. If any additional imaging is needed we willcontact your patient directly. REPORT SIGNED IN OTHER VENDOR SYSTEM 01/18/2019 Reported By: Robert Coker MD CC: Transcribed Date/Time: 01/18/2019 (1003) Side Seam Envelope Machine Operator: Printed Date/Time: 05/23/2019 (0375) PAGE 1 Signed Report Erika Shepherd NP CNM IMG MAMMOGRAPHY ORDERABLES Final Result documented in this encounter Visit Diagnoses Not on filedocumented in this encounter Care Teams Director Apparel Relationship Specialty Start Date End Date Glenn Epperson MD PCP - General 07/15/15 02/28/21 documented as of this encounter
--- OUTSIDE RECORDS SUMMARY | 2024-09-05 10:01 | XMS_ITS | Encounter Summary ---
Author Organization [facility] Address [address] [place] [address] Care Team Providers Care Farm Equipment Service Technician Name Role Phone Unavailable Primary Care Provider Unavailabl e Encounter Details Date Type Department Care Team (Late st Contact Info) Description 07/15/2002 13:49 EST Hospital Encounter [facility] - Other [address] [place] [address] Willam Eng MD [address] [place] [address] Unknown, Provider, Social History Tobacco Use Types [...]
--- OUTSIDE RECORDS SUMMARY | 2024-09-05 10:01 | XMS_ITS | Encounter Summary ---
Author Organization [facility] Address [address] [place] [address] Care Team Providers Care Tobacco Grower Name Role Phone Ciro Best DO Primary Care Provider [phone] Encounter Details Date Type Department Care Team (Late st Contact Info) Description 03/30/2022 Prep for Procedure [facility] Endoscopy [address] [place] [address] Ismael Garsia MD [facility] [address] [place] [address] Social History Tobacco Use Types Packs/Day Years [...] on filedocumented in this encounter Care Teams Tobacco Grower Relationship Specialty Start Date End Date Ciro Best DO [address] [facility], [address] [place] [address] PCP - General Obstetrics and Gynecology 03/01/21 9/04/26 documented as of this encounter
--- OUTSIDE RECORDS SUMMARY | 2024-09-05 10:01 | XMS_ITS | Encounter Summary ---
Author Organization [facility] Address [address] [place] [address] Care Team Providers Care Decorator Mannequin Name Role Phone Unavailable Primary Care Provider Unavailabl e Encounter Details Date Type Department Care Team (Late st Contact Info) Description 12/04/2002 21:15 EST Hospital Encounter [facility] - Maple conversion [address] [place] [address] Thompson Macedo MD [address] [facility], [address] [place] [phone] Discharge Disposition: Home or Self Care Social [...]
--- OUTSIDE RECORDS SUMMARY | 2024-09-05 10:01 | XMS_ITS | Encounter Summary ---
Author Organization [facility] Address [address] [place] [address] Care Team Providers Care Almond Roaster Name Role Phone Unavailable Primary Care Provider Unavailabl e Encounter Details Date Type Department Care Team (Late st Contact Info) Description 09/05/2002 12:19 EST Hospital Encounter [address] [address] Willam Eng MD [address] [place] [address] Social History Tobacco Use Types Packs/Day Years [...] Date/Time Associated Diagnosis Comments RAD ULTRASOUND Routine 10/31/2002 16:00 EST RAD ULTRASOUND Routine 10/03/2002 15:15 EST documented in this encounter Results * RAD ULTRASOUND (10/31/2002 16:00 EST) Anatomical Region Laterality Modality Other 10/31/2002 16:0 0 EST Narrative 05/19/2009 1:00 EDT OB U/S F/U ,GROWTH Please refer to the separate [facility] report. Procedure Note Naheed Eller MD - 05/19/2009 OB U/S F/U ,GROWTH Please refer to the separate [facility] report. us Isabel Casey MD IMG US ORDERABLES Final Resu lt * RAD ULTRASOUND (10/03/2002 15:15 EST) Anatomical Region Laterality Modality Other 10/03/2002 15:1 5 EST Narrative 06/01/2009 3:17 EDT OB U/S F/U,GROWTH Please refer to the separate [facility] report. Procedure Note Isabel Casey MD - 06/01/2009 OB U/S F/U,GROWTH Please refer to the separate [facility] report. us Willam Eng MD IMG US ORDERABLES Final Result documented in this encounter Visit Diagnoses Not on filedocumented in this encounter
--- OUTSIDE RECORDS SUMMARY | 2024-09-05 10:02 | XMS_ITS ---
Author Organization Unknown Address [address] [place] [phone] Phone Care Team Providers Care Heat And Frost Insulator Name Role Phone GREGORY FERRARA MD Attending Renetta GOMEZ Unavailable MELINDA VASQUEZ Primary Unavailable Results SED RATE - Collect Date/Time : 03/20/2021 20:56 ID: [id number] [address] [place] [address], [address] LOINC: 4537-7 Test Value Unit Reference Range Code Code System Flag SED. RATE 13 mm/hr L=0 H=30 4537-7 LOINC C REACTIVE PROTEIN HIGH SENS ITIVITY - Collect Date/Time: 03/20/2021 20:56 ID: [id number] [address] [place] [address], [address] LOINC: 78360-0 Test Value Unit Reference Range Code Code System Flag CRP-HIGH SENS. 12.23 mg/L L=0.00 H=3.00 98983-3 LOINC H CRP-HIGH SENS 1.22 mg/dL L=0.00 H=0.30 86975-7 LOINC H COMPREHENSIVE METABOLIC PANE L (CMP) - Collect Date/Time: 03/20/2021 20:56 ID: [id number] [address] [place] [address], [address] LOINC: 31483-4 Test Value Unit Reference Range Code Code System Flag GLUCOSE 157 mg/dL L=70 H=116 2345-7 LOINC H BUN 11 mg/dL L=6 H=25 3094-0 LOINC CREATININE 0.81 mg/dL L=0.51 H=0.95 2160-0 LOINC SODIUM SERUM 141 mmol/L L=136 H=145 2951-2 LOINC POTASSIUM SERUM 3.7 mmol/L L=3.4 H=5.2 2823-3 LOINC CHLORIDE SERUM 103 mmol/L L=96 H=110 2075-0 LOINC CARBON DIOXIDE (CO2) 29 mmol/L L=22 H=34 2028-9 LOINC ANION GAP 8.9 mmol/L 00985-7 LOINC CALCIUM SERUM 8.9 mg/dL L=8.2 H=10.2 54965-3 LOINC BILIRUBIN TOTAL 0.4 mg/dL L=0.0 H=1.3 1975-2 LOINC ALK. PHOS. 95 U/L L=46 H=116 6768-6 LOINC SGOT (AST) 15 U/L L=15 H=37 1920-8 LOINC SGPT (ALT) 30 U/L L=12 H=78 1742-6 LOINC TOTAL PROTEIN 8.0 gm/dL L=6.0 H=8.0 2885-2 LOINC ALBUMIN 3.8 gm/dL L=3.4 H=5.0 1751-7 LOINC AGE 50 years eGFR (non-Afr.Amer.) 75 mL/min 63937-1 LOINC eGFR (Afr-Italian) 91 mL/min 76790-6 LOINC CBC W/ DIFFERENTIAL - Collec t Date/Time: 03/20/2021 20:56 ID: [id number] [address] [place], [place], [address] LOINC: 04632-7 Test Value Unit Reference Range Code Code System Flag WBC 10.29 th/cmm L=5.00 H=10.00 6690-2 LOINC H NEUT % 56.3 % L=40.0 H=80.0 LYMPH % 34.2 % L=10.0 H=50.0 MONO % 6.3 % L=2.0 H=12.0 76701-2 LOINC EOS % 2.3 % L=0.0 H=8.0 BASO % 0.6 % L=0.0 H=3.0 IG % 0.3 % L=0.0 H=1.1 2514-8 LOINC NRBC % 0.0 % L=0.0 H=0.0 59985-9 LOINC NEUT abs count 5.8 th/cmm L=1.6 H=8.4 751-8 LOINC LYMPH abs count 3.5 th/cmm L=1.5 H=4.0 731-0 LOINC MONO abs count 0.7 th/cmm L=0.2 H=1.0 742-7 LOINC EOS abs count 0.2 th/cmm L=0.0 H=0.5 711-2 LOINC BASO abs count 0.1 th/cmm L=0.0 H=0.2 704-7 LOINC IG abs count 0.0 th/cmm L=0.0 H=0.1 07559-3 LOINC NRBC abs count 0.0 mil/cmm L=0.0 H=0.0 20481-8 LOINC RBC 4.78 mil/cmm L=3.90 H=5.40 789-8 LOINC HEMOGLOBIN 11.7 gm/dL L=12.0 H=16.0 718-7 LOINC L HEMATOCRIT 38 % L=37 H=47 4544-3 LOINC MCV 80 fL L=82 H=92 787-2 LOINC L MCH 24.5 pg L=27.0 H=31.0 785-6 LOINC L MCHC 30.6 % L=32.0 H=36.0 786-4 LOINC L RDW-SD 39.4 fL L=39.0 H=49.0 788-0 LOINC PLATELET COUNT 342 th/cmm L=150 H=450 777-3 LOINC SHOULDER RIGHT 4V - Complete d: 03/20/2021 19:35 LOINC: There is no evidence of frac ture nor dislocation. No obvious degenerative changes. However, there is a 1.3 by 0.4 cm soft tissue calcification just above the greater tuberosity consistent with calcific rotator cuff tendonitis. IMPRESSION: Calcific rotator cuff tendinitis. If clinically indicated, followup MRI can be performed. Dictated by: MATHEW MOTLEY M.D. RADIOLOGIST Transcribed by: LAZARA 03/22/21/07:21 D Sunday, March 21, 2021 1:45:43 PM [id number] Electronically Reviewed and Signed By: NEHA MOTLEY M.D. RADIOLOGIST 03/22/21 19:18 Copy for: GREGORY FERRARA MD via modem DISCHARGED Social History Type Status Start Date End Date Code Code Syst em Smoking History Never smoker (Never Smoked) 939211143 SNOMED CT Sex Female Medications Medication Start Date End Date Route Frequency Dose Code Code System Medication Instructions Home Meds Aspir Low 81MG Oral Tablet, Enteric Coated 01/03/2019 10/13/2022 ORAL DAILY 81 MILLIGRAMS 0176092 RxNorm TAKE 81 MILLIGRAMS ORAL DAILY LANTUS [...] Tablet, Extended Release 01/03/2019 10/13/2022 ORAL DAILY 7262915 RxNorm TAKE 000 MILLIGRAMS ORAL DAILY Assessment [...] Date Status Code Code System DIABETES active 51973023 SNOMED-CT HIGH CHOLESTEROL active 70012787 SNO MED-CT ANXIETY active 80593200 SNOMED-CT Allergies and Adverse Reactions Allergy Substance Reaction Severity Start Date Concern Status Co de Code System No Known Drug Allergies Active 063714264 SNOMED-CT Plan of Treatment MRI LOWER EXT W/O CONTRAST 01/17/2024 US ABDOMEN LIMITED 1 ORGAN 02/22/2023 X-RAY 12/31/2021 X-RAY 07/09/2021 US GUIDED NEEDLE BIOPSY 07/14/2021 MRI UPPER EXT JOINT W/O CONTRAST 2020 Encounters Encounter Diagnosis Start Date Code Code Sys tem Pain in right shoulder 03/20/2021 LILLIE D-CT Personal Care Team Section Performer Name Performer Role Active Date Inactive Da te
--- OUTSIDE RECORDS SUMMARY | 2024-09-05 10:02 | XMS_ITS ---
Author Organization Unknown Address [address] [place] [address] [phone] Phone Care Team Providers Care Mis Specialist Name Role Phone PATTIE MARIO MD Attending Unavailable MELINDA VASQUEZ Primary Unavailable Social History Type Status Start Date End Date Code Code Syst em Smoking History Never smoker (Never Smoked) 842525648 SNOMED CT Sex Female Medications Medication Start Date End Date Route Frequency Dose Code Code System Medication Instructions Home Meds Aspir Low 81MG Oral Tablet, Enteric Coated 01/03/2019 10/13/2022 ORAL DAILY 81 MILLIGRAMS 6006287 RxNorm TAKE 81 MILLIGRAMS ORAL DAILY LANTUS [...] Tablet, Extended Release 01/03/2019 10/13/2022 ORAL DAILY 0414669 RxNorm TAKE 000 MILLIGRAMS ORAL DAILY Assessment [...] Date Status Code Code System DIABETES active 05905222 SNOMED-CT HIGH CHOLESTEROL active 66729206 SNO MED-CT ANXIETY active 38719472 SNOMED-CT Allergies and Adverse Reactions Allergy Substance Reaction Severity Start Date Concern Status Co de Code System No Known Drug Allergies Active 767205026 SNOMED-CT Plan of Treatment MRI LOWER EXT W/O CONTRAST 01/17/2024 US ABDOMEN LIMITED 1 ORGAN 02/22/2023 X-RAY 12/31/2021 X-RAY 07/09/2021 US GUIDED NEEDLE BIOPSY 07/14/2021 MRI UPPER EXT JOINT W/O CONTRAST 2020 Encounters Encounter Diagnosis Start Date Code Code Sys tem Calcific tendinitis of right shoulder 04/09/2021 SNOMED-CT Personal Care Team Section Performer Name Performer Role Active Date Inactive Da te
[2024-09-05 15:33] LABS: HCT 43.1 % (36.0-46.0); HGB 13.7 g/dL (11.2-15.7); MCH 27.8 pg (27.0-33.0); MCHC 31.8 % (32.0-36.0); MCV 88 fL (80-95); MPV 9.8 fL (8.0-11.0); Platelet Count 339 10^3/uL (130-400); RBC 4.92 10^6/uL (3.93-5.22); RDW 13.2 % (11.7-14.6); RDW-SD 41.8 fL; WBC 9.35 10^3/uL (4.4-10.8)
[2024-09-05 16:06] LABS: Hemoglobin A1C 5.7 % (<5.7)
[2024-09-05 16:08] LABS: ALT 22 U/L (14-59); AST 22 U/L (15-37); Albumin 3.5 g/dL (3.4-5.0); Alkaline Phosphatase 95 U/L (46-116); Anion Gap 8.3 mmol/L (3-11); BUN 14 mg/dL (7-18); Bilirubin, Total 0.38 mg/dL (0.2-1.0); CREATININE 0.9 mg/dL (0.55-1.02); Calcium 9.3 mg/dL (8.5-10.1); Calculated LDL 60 mg/dL (<100); Chloride 107 mmol/L (98-107); Cholesterol 154 mg/dL (<200); Estimated GFR 76.44 (mL/min/1.73m2); Glucose 69 mg/dL (74-106); HDL Cholesterol 76 mg/dL (40-60); Potassium 3.8 mmol/L (3.5-5.1); Sodium 144 mmol/L (136-145); TSH 1.72 uIU/mL (0.36-3.74); Total Protein 7.2 g/dL (6.4-8.2); Triglyceride 90 mg/dL (<150)
[2024-09-05 16:55] LABS: CO2 25.9 mmol/L (21.0-32.0)
== END 2024-09-05 09:53 | disposition home or self-care (01) ==
LOC: NCHCN 09:52
PROVIDERS: PCP Nurse Practitioner Family; Visit Provider Nurse Practitioner Family
DX: Z00.00 Encounter for general adult medical examination without abnormal findings (principal)
CPT/HCPCS: 80053; 80061; 85027; 83036; 84443

== ENCOUNTER 2024-09-10 17:49 | Outpatient (REF) | payer OTHER, SELFPAY ==
--- OUTSIDE RECORDS SUMMARY | 2024-09-10 17:50 | XMS_ITS | Clinical Summary ---
[place] [address] Care Team Providers Care Dairy Nutritionist Name Role Phone Unavailable Primary Care Provider [...]
--- OUTSIDE RECORDS SUMMARY | 2024-09-10 17:50 | XMS_ITS | Encounter Summary ---
Author Organization [facility] Address [facility] [place] [address] Care Team Providers Care Home Care Coordinator Name Role Phone Unavailable Primary Care Provider Unavailabl e Encounter Details Date Type Department Care Team (Late st Contact Info) Description 05/09/2024 Interpretation Only [facility] in [facility] [address] [place] [address] Heena Mccray APRN [address] [place], [place] [phone] Social History Tobacco Use Types Packs/Day Years [...] PM EDT) PT CLASS O RAD ADMITDTTM [id number] RAD PT RAD INFO [id number]^WOHLBE RG^HEENA^B RAD EXAM DESC XRRIBPCHXR^XR RIBS UNILAT W PA CHEST 3V RT^RIS RAD WORKSTATION ID [id number] RAD Anatomical Region Laterality Modality Chest Right [...] who have questions please contact the health health care specialist that requested your imaging first. ? Electronically signed by: Farhat Herbert MD, [facility] ([phone]), at 05/09/2024 1:22 PM Narrative 05/09/2024 1:22 [...] patients who have questions please contactthe health health care specialist that requested your imaging first. Electronically signed by: Farhat Herbert MD, [facility]([phone]), at 05/09/2024 1:22 PM Heena Mccray HEAD MECHANIC IMG DX ORDERABLES documented in this encounter Visit Diagnoses Not on filedocumented in this encounter
--- OUTSIDE RECORDS SUMMARY | 2024-09-10 17:50 | XMS_ITS ---
Author Organization Unknown Address [address] [place] [phone] Phone Care Team Providers Care Head Refrigerating Engineer Name Role Phone PATTIE MARIO Attending Unavailable MELINDA Oakes Primary Unavailable Social History Type Status Start Date End Date Code Code Syst em Smoking History Never smoker (Never Smoked) 084187285 SNOMED CT Sex Female Medications Medication Start Date End Date Route Frequency Dose Code Code System Medication Instructions Home Meds Aspir Low 81MG Oral Tablet, Enteric Coated 01/03/2019 10/13/2022 ORAL DAILY 81 MILLIGRAMS 8711873 RxNorm TAKE 81 MILLIGRAMS ORAL DAILY LANTUS [...] Tablet, Extended Release 01/03/2019 10/13/2022 ORAL DAILY 3190117 RxNorm TAKE 000 MILLIGRAMS ORAL DAILY Assessment [...] Date Status Code Code System DIABETES active 65187180 SNOMED-CT HIGH CHOLESTEROL active 64995282 SNO MED-CT ANXIETY active 64611311 SNOMED-CT Allergies and Adverse Reactions Allergy Substance Reaction Severity Start Date Concern Status Co de Code System No Known Drug Allergies Active 952028240 SNOMED-CT Plan of Treatment MRI LOWER EXT W/O CONTRAST 01/17/2024 US ABDOMEN LIMITED 1 ORGAN 02/22/2023 X-RAY 12/31/2021 X-RAY 07/09/2021 US GUIDED NEEDLE BIOPSY 07/14/2021 MRI UPPER EXT JOINT W/O CONTRAST 2020 Encounters Encounter Diagnosis Start Date Code Code Sys tem Idiopathic osteoarthritis 08/04/2021 791082228 SN OMED-CT Personal Care Team Section Performer Name Performer Role Active Date Inactive Da te
--- OUTSIDE RECORDS SUMMARY | 2024-09-10 17:50 | XMS_ITS ---
Author Organization Unknown Address [address] [place] [phone] Phone Care Team Providers Care Cashier Wrapper Name Role Phone AARON Ann Attending Unavailable MELINDA Oakes Primary Unavailable Results CBC W/ DIFFERENTIAL* - Colle ct Date/Time: 12/31/2021 15:48 [facility] ID: [id number] [address] [place], [place], [address] LOINC: 44391-3 Test Value Unit Reference Range Code Code System Flag WBC 7.15 th/cmm L=5.00 H=10.00 6690-2 LOINC NEUT % 57.5 % L=40.0 H=80.0 LYMPH % 30.5 % L=10.0 H=50.0 MONO % 5.9 % L=2.0 H=12.0 37130-0 LOINC EOS % 5.2 % L=0.0 H=8.0 BASO % 0.6 % L=0.0 H=3.0 IG % 0.3 % L=0.0 H=1.1 2514-8 LOINC NRBC % 0.0 % L=0.0 H=0.0 71050-2 LOINC NEUT abs count 4.1 th/cmm L=1.6 H=8.4 751-8 LOINC LYMPH abs count 2.2 th/cmm L=1.5 H=4.0 731-0 LOINC MONO abs count 0.4 th/cmm L=0.2 H=1.0 742-7 LOINC EOS abs count 0.4 th/cmm L=0.0 H=0.5 711-2 LOINC BASO abs count 0.0 th/cmm L=0.0 H=0.2 704-7 LOINC IG abs count 0.0 th/cmm L=0.0 H=0.1 87748-2 LOINC NRBC abs count 0.0 mil/cmm L=0.0 H=0.0 40487-1 LOINC RBC 5.00 mil/cmm L=3.90 H=5.40 789-8 [...] L (CMP) - Collect Date/Time: 12/31/2021 15:48 [facility] ID: [id number] [address] [place], [place], [address] LOINC: 42489-5 Test Value Unit Reference Range Code Code [...] H=34 2028-9 LOINC ANION GAP 10.6 mmol/L 55475-1 LOINC CALCIUM SERUM 8.9 mg/dL L=8.2 H=10.2 20785-6 LOINC BILIRUBIN TOTAL 0.4 mg/dL L=0.0 H=1.3 1975-2 LOINC ALK. PHOS. 95 U/L L=46 H=116 6768-6 LOINC SGOT (AST) 52 U/L L=15 H=37 1920-8 LOINC H SGPT (ALT) 51 U/L L=12 H=78 1742-6 LOINC TOTAL PROTEIN 7.5 gm/dL L=6.0 H=8.0 2885-2 LOINC ALBUMIN 3.1 gm/dL L=3.4 H=5.0 1751-7 LOINC L AGE 51 years eGFR (non-Afr.Amer.) 70 mL/min 73260-2 LOINC eGFR (Afr-Sierra Leonean) 84 mL/min 09226-6 LOINC XR CHEST 2V PA AND LATERAL [...] D Friday, December 31, 2021 3:52:38 PM [id number] Electronically Reviewed and Signed By: MONSTER PRUITT MD 12/31/21 15:58 Copy for: AARON Ann via fax Copy for: [facility] HEALTH INFORMATION MGMT Social History Type Status Start Date End Date Code Code Syst em Smoking History Never smoker (Never Smoked) 752767723 SNOMED CT Sex Female Medications Medication Start Date End Date Route Frequency Dose Code Code System Medication Instructions Home Meds Aspir Low 81MG Oral Tablet, Enteric Coated 01/03/2019 10/13/2022 ORAL DAILY 81 MILLIGRAMS 0763974 RxNorm TAKE 81 MILLIGRAMS ORAL DAILY LANTUS [...] Tablet, Extended Release 01/03/2019 10/13/2022 ORAL DAILY 5818319 RxNorm TAKE 000 MILLIGRAMS ORAL DAILY Assessment [...] Date Status Code Code System DIABETES active 15745528 SNOMED-CT HIGH CHOLESTEROL active 62026009 SNO MED-CT ANXIETY active 03536894 SNOMED-CT Allergies and Adverse Reactions Allergy Substance Reaction Severity Start Date Concern Status Co de Code System No Known Drug Allergies Active 242519447 SNOMED-CT Plan of Treatment MRI LOWER EXT [...]
--- OUTSIDE RECORDS SUMMARY | 2024-09-10 17:51 | XMS_ITS ---
Author Organization Unknown Address [address] [place] [address] [phone] Phone Care Team Providers Care Manager Continuous Improvement Name Role Phone CARSON SHELTON Registered Nurse Unavailable WILMAR Spaulding Attending Unavailable NIK GOMEZ Unavailable MELINDA Oakes Primary Unavailable UNLISTED PROVIDER - REQUESTED Xhandoff Un available Results US DVT UNI LT* - Completed: 10/13/2022 16:07 LOINC: [place], [place] [address] PACS CLIPPER MACHINE OPERATOR REPORT Patient Name: STONE DONALD MRN: Sex: : Age: [id number] F 1970 51 Account: Accession: Admit: StayType: [id number] 10/13/2022 E/R Ordered: Order ID: Submitted: Ordering Provider: 10/13/2022 15:02 [id number] QAMAR MOURA Completed: Technologist: Resulted: 10/13/2022 16:07 [facility] 10/13/2022 16:24 Study Description: US DVT UNI [...] em Smoking History Never smoker (Never Smoked) 689924275 SNOMED CT Sex Female Vital Signs Vital Sign Value Unit Wells Value Wells Unit Date/Time Recent/Initial? Code Code System Body Mass Index 34.97 kg/m2 10/13/2022 14:39 Initial 51175 -5 LOINC Systolic Blood Pressure 119 mm[Hg] [...] Saturation 96 % 2022 16:47 Most Recent 27087 -5 LOINC O2 Saturation 99 % 2022 14:39 Initial 69900 -5 LOINC Pulse 60.0 /min 10/13/2022 16:47 Most Recent 8867- 4 LOINC Pulse 67.0 /min 10/13/2022 14:39 Initial 8867- 4 LOINC Respiration 18 /min 10/13/19 16:47 Most Recent 9279- 1 LOINC Respiration 16 /min 10/13/19 14:39 Initial 9279- 1 LOINC Temperature 36.7 Maryam 98.1 F 10/13/19 16:47 Most Recent 8310- 5 LOINC Temperature 36.4 Maryam 97.5 F 02/09/20 23 14:39 Initial 8310- 5 [facility] Weight 104.33 kg 230.00 lbs 10/13/2022 14:39 Initial 96403 -7 [facility] Medications Medication Start Date End Date Route Frequency Dose Code Code System Medication Instructions Home Meds Aspir Low 81MG Oral Tablet, Enteric Coated 01/03/2019 10/13/2022 ORAL DAILY 81 MILLIGRAMS 9040884 RxNorm TAKE 81 MILLIGRAMS ORAL DAILY LANTUS [...] Tablet, Extended Release 01/03/2019 10/13/2022 ORAL DAILY 0314939 RxNorm TAKE 000 MILLIGRAMS ORAL DAILY Assessment [...] Date Status Code Code System DIABETES active 69331797 SNOMED-CT HIGH CHOLESTEROL active 13884244 SNO MED-CT ANXIETY active 36863171 SNOMED-CT Allergies and Adverse Reactions Allergy Substance Reaction Severity Start Date Concern Status Co de Code System No Known Drug Allergies Active 873738181 SNOMED-CT Plan of Treatment MRI LOWER EXT W/O CONTRAST 01/17/2024 US ABDOMEN LIMITED 1 ORGAN 02/22/2023 X-RAY 12/31/2021 X-RAY 07/09/2021 US GUIDED NEEDLE BIOPSY 07/14/2021 MRI UPPER EXT JOINT W/O CONTRAST 2020 Encounters Encounter Diagnosis Start Date Code Code Sys tem Pain of left lower leg 10/13/2022 927990683138895 SN OMED-CT Personal Care Team Section Performer Name Performer Role Active Date Inactive Da te
--- OUTSIDE RECORDS SUMMARY | 2024-09-10 17:51 | XMS_ITS ---
Author Organization Unknown Address [address] [place] [address] [phone] Phone Care Team Providers Care Attache Name Role Phone JERO COMER Attending Unavailable MELINDA Oakes Primary Unavailable Results XR SHOULDER 2V OR MORE RT* - Completed: 11/07/2022 11:44 LOINC: [facility] RADIOLOGY [place], [place] [address] PACS MACHINE SETUP OPERATOR REPORT Patient Name: STONE DONALD MRN: Sex: : Age: [id number] F 1970 52 Account: Accession: Admit: StayType: [id number] 11/07/2022 CLINIC Ordered: Order ID: Submitted: Ordering Provider: 11/07/2022 11:30 [id number] SOULEYMANE FRENCH Completed: Technologist: Resulted: 11/07/2022 11:44 [...] em Smoking History Never smoker (Never Smoked) 839717582 SNOMED CT Sex Female Assessment You had [...] Date Status Code Code System DIABETES active 52028692 SNOMED-CT HIGH CHOLESTEROL active 47482398 SNO MED-CT ANXIETY active 10254083 SNOMED-CT Allergies and Adverse Reactions Allergy Substance Reaction Severity Start Date Concern Status Co de Code System No Known Drug Allergies Active 500872110 SNOMED-CT Plan of Treatment MRI LOWER EXT W/O CONTRAST 01/17/2024 US ABDOMEN LIMITED 1 ORGAN 02/22/2023 X-RAY 12/31/2021 X-RAY 07/09/2021 US GUIDED NEEDLE BIOPSY 07/14/2021 MRI UPPER EXT JOINT W/O CONTRAST 2020 Encounters Encounter Diagnosis Start Date Code Code Sys tem 11/07/2022 [id number] SNOMED-CT Personal Care Team Section Performer Name Performer Role Active Date Inactive Da te
--- OUTSIDE RECORDS SUMMARY | 2024-09-10 17:52 | XMS_ITS ---
Author Organization Unknown Address [address] [place] [address] [phone] Phone Care Team Providers Care Bottom Steep Tender Name Role Phone MELINDA Oakes Attending Unavailable Results US ABD LIMITED ONE ORGAN - C ompleted: 02/22/2023 08:24 LOINC: [facility] RADIOLOGY [place], [place] [address] PACS TOP COATER REPORT Patient Name: STONE DONALD MRN: Sex: : Age: [id number] F 1970 52 Account: Accession: Admit: StayType: [id number] 02/22/2023 O/P Ordered: Order ID: Submitted: Ordering Provider: 02/22/2023 08:11 [id number] PEDRO NELSON Completed: Technologist: Resulted: 02/22/2023 08:24 [...] em Smoking History Never smoker (Never Smoked) 304463103 SNOMED CT Sex Female Assessment You had [...] Date Status Code Code System DIABETES active 65472166 SNOMED-CT HIGH CHOLESTEROL active 07128391 SNO MED-CT ANXIETY active 31262754 SNOMED-CT Allergies and Adverse Reactions Allergy Substance Reaction Severity Start Date Concern Status Co de Code System No Known Drug Allergies Active 367328603 SNOMED-CT Plan of Treatment MRI LOWER EXT [...]
--- OUTSIDE RECORDS SUMMARY | 2024-09-10 17:52 | XMS_ITS ---
Author Organization Unknown Address [address] [place] [address] [phone] Phone Care Team Providers Care Toddler Lead Teacher Name Role Phone ROOMET SHIVAM Attending Unavailable MELINDA Oakes Primary Unavailable Social History Type Status Start Date End Date Code Code Syst em Smoking History Never smoker (Never Smoked) 504795622 SNOMED CT Sex Female Assessment You had [...] Nerve Conduction Studies 7-8 Studies 11/21/2023 completed 83559 CPT Problems Problem Start Date Resolved Date Status Code Code System DIABETES active 41757046 SNOMED-CT HIGH CHOLESTEROL active 40185624 SNO MED-CT ANXIETY active 80176039 SNOMED-CT Allergies and Adverse Reactions Allergy Substance Reaction Severity Start Date Concern Status Co de Code System No Known Drug Allergies Active 534285723 SNOMED-CT Plan of Treatment MRI LOWER EXT [...]
--- OUTSIDE RECORDS SUMMARY | 2024-09-10 17:52 | XMS_ITS ---
Author Organization Unknown Address [address] [place] [address] [phone] Phone Care Team Providers Care Scale Balancer Name Role Phone JERO COMER Attending Unavailable MELINDA Oakes Primary Unavailable Social History Type Status Start Date End Date Code Code Syst em Smoking History Never smoker (Never Smoked) 565305867 SNOMED CT Sex Female Assessment You had [...] Date Status Code Code System DIABETES active 25475602 SNOMED-CT HIGH CHOLESTEROL active 55287545 SNO MED-CT ANXIETY active 11783506 SNOMED-CT Allergies and Adverse Reactions Allergy Substance Reaction Severity Start Date Concern Status Co de Code System No Known Drug Allergies Active 970772639 SNOMED-CT Plan of Treatment MRI LOWER EXT W/O CONTRAST 01/17/2024 US ABDOMEN LIMITED 1 ORGAN 02/22/2023 X-RAY 12/31/2021 X-RAY 07/09/2021 US GUIDED NEEDLE BIOPSY 07/14/2021 MRI UPPER EXT JOINT W/O CONTRAST 2020 Encounters Encounter Diagnosis Start Date Code Code Sys tem 02/13/2023 [id number] SNOMED-CT Personal Care Team Section Performer Name Performer Role Active Date Inactive Da te
--- OUTSIDE RECORDS SUMMARY | 2024-09-10 17:52 | XMS_ITS ---
Author Organization Unknown Address [address] [place] [address] [phone] Phone Care Team Providers Care Cardiovascular Tech Name Role Phone ROZ BLANKENSHIP Registered Nurse Unavailable STANLEY Spaulding Attending Unavailable WERNER GOMEZ Unavailable MELINDA Oakes Primary Unavailable UNLISTED PROVIDER - REQUESTED Xhandoff Un available Results XR FOOT 3V LT* - Completed: 12/21/2023 15:54 LOINC: [place], [place] [address] PACS CARRIER BLOWER REPORT Patient Name: STONE DONALD MRN: Sex: : Age: [id number] F 1970 53 Account: Accession: Admit: StayType: [id number] 12/21/2023 E/R Ordered: Order ID: Submitted: Ordering Provider: 12/21/2023 15:44 [id number] HARI LANZA Completed: Technologist: Resulted: 12/21/2023 15:54 [...] em Smoking History Never smoker (Never Smoked) 455292615 SNOMED CT Sex Female Vital Signs Vital Sign Value Unit [place] Value [place] Unit Date/Time Recent/Initial? Code Code System Body Mass Index 33.20 kg/m2 12/21/2023 15:34 Initial 09769 -5 LOINC Systolic Blood Pressure 126 mm[Hg] 12/21/2023 15:34 Initial 8480- 6 LOINC Diastolic Blood Pressure 78 mm[Hg] 12/21/2023 15:34 Initial 8462- 4 LOINC Body Surface Area 2.13 m2 12/21/2023 15:34 Initial 3140- 1 LOINC Height 170.180 0 cm 67.00 in 12/21/2023 15:34 Initial 8302- 2 LOINC O2 Saturation 98 % 2023 15:34 Initial 35305 -5 LOINC Pulse 55.0 /min 12/21/2023 15:34 Initial 8867- 4 LOINC Respiration 15 /min 12/21/19 15:34 Initial 9279- 1 LOINC Temperature 37.0 Maryam 98.6 F 12/21/19 15:34 Initial 8310- 5 LOINC Weight 96.16 kg 212.00 lbs 12/21/2023 15:34 Initial 83008 -7 LOINC Assessment You had the following problems:DIABETESHIGH CHOLESTEROLANXIETY Hospital Discharge Instructions Should you have any questions prior to discharge, please contact a member of your healthcare team. If you have left the hospital and have any questions, please contact your primary care physician. Reason For Referral No Data Found Problems Problem Start Date Resolved Date Status Code Code System DIABETES active 71093592 SNOMED-CT HIGH CHOLESTEROL active 30923365 SNO MED-CT ANXIETY active 87167546 SNOMED-CT Allergies and Adverse Reactions Allergy Substance Reaction Severity Start Date Concern Status Co de Code System No Known Drug Allergies Active 184489578 SNOMED-CT Plan of Treatment MRI LOWER EXT [...]
--- OUTSIDE RECORDS SUMMARY | 2024-09-10 17:53 | XMS_ITS ---
Author Organization Unknown Address [address] [place] [address] [phone] Phone Care Team Providers Care Ore Fielder Name Role Phone DINORA Ramirez Attending Unavailable MELINDA Oakes Primary Unavailable Social History Type Status Start Date End Date Code Code Syst em Smoking History Never smoker (Never Smoked) 591585085 SNOMED CT Sex Female Assessment You had [...] Date Status Code Code System DIABETES active 04615382 SNOMED-CT HIGH CHOLESTEROL active 74960063 SNO MED-CT ANXIETY active 61984557 SNOMED-CT Allergies and Adverse Reactions Allergy Substance Reaction Severity Start Date Concern Status Co de Code System No Known Drug Allergies Active 346527508 SNOMED-CT Plan of Treatment MRI LOWER EXT W/O CONTRAST 01/17/2024 US ABDOMEN LIMITED 1 ORGAN 02/22/2023 X-RAY 12/31/2021 X-RAY 07/09/2021 US GUIDED NEEDLE BIOPSY 07/14/2021 MRI UPPER EXT JOINT W/O CONTRAST 2020 Encounters Encounter Diagnosis Start Date Code Code Sys tem Idiopathic osteoarthritis 01/23/2024 699267674 SN OMED-CT Personal Care Team Section Performer Name Performer Role Active Date Inactive Da te
--- OUTSIDE RECORDS SUMMARY | 2024-09-10 17:53 | XMS_ITS ---
Author Organization Unknown Address [address] [place] [address] [phone] Phone Care Team Providers Care Pay Station Collector Name Role Phone DINORA Ramirez Attending Unavailable MELINDA Oakes Primary Unavailable Social History Type Status Start Date End Date Code Code Syst em Smoking History Never smoker (Never Smoked) 603858524 SNOMED CT Sex Female Assessment You had [...] Date Status Code Code System DIABETES active 35626434 SNOMED-CT HIGH CHOLESTEROL active 75192593 SNO MED-CT ANXIETY active 23951039 SNOMED-CT Allergies and Adverse Reactions Allergy Substance Reaction Severity Start Date Concern Status Co de Code System No Known Drug Allergies Active 624853146 SNOMED-CT Plan of Treatment MRI LOWER EXT W/O CONTRAST 01/17/2024 US ABDOMEN LIMITED 1 ORGAN 02/22/2023 X-RAY 12/31/2021 X-RAY 07/09/2021 US GUIDED NEEDLE BIOPSY 07/14/2021 MRI UPPER EXT JOINT W/O CONTRAST 2020 Encounters Encounter Diagnosis Start Date Code Code Sys tem Idiopathic osteoarthritis 02/19/2024 459334878 SN OMED-CT Personal Care Team Section Performer Name Performer Role Active Date Inactive Da te
--- OUTSIDE RECORDS SUMMARY | 2024-09-10 17:53 | XMS_ITS ---
Author Organization Unknown Address [address] [place] [address] [phone] Phone Care Team Providers Care Product Ambassador Name Role Phone DINORA Ramirez Attending Unavailable MELINDA Oakes Primary Unavailable Results MR LOWER EXT NOT JOINT LT WO CONTRAST - Completed: 01/17/2024 14:55 LOINC: [facility] [place], [place] [address] INFINITT PACS ADULT NEUROLOGIST REPORT Patient Name: STONE DONALD MRN: Sex: : Age: [id number] O 1970 53 Account: Accession: Admit: StayType: [id number] 01/17/2024 O Ordered: Order ID: Submitted: Ordering Provider: 01/17/2024 14:01 [id number] TERRY REARDON Completed: Technologist: Resulted: 01/17/2024 14:05 [...] tendon tears no tenosynovitis seen within the huvtu-hb-fdfm. EXTRAMUSCULAR SOFT TISSUES: No evidence of Willis's [...] em Smoking History Never smoker (Never Smoked) 020003492 SNOMED CT Sex Female Assessment You had [...] Date Status Code Code System DIABETES active 73674656 SNOMED-CT HIGH CHOLESTEROL active 43136054 SNO MED-CT ANXIETY active 67817213 SNOMED-CT Allergies and Adverse Reactions Allergy Substance Reaction Severity Start Date Concern Status Co de Code System No Known Drug Allergies Active 574064530 SNOMED-CT Plan of Treatment MRI LOWER EXT W/O CONTRAST 01/17/2024 US ABDOMEN LIMITED 1 ORGAN 02/22/2023 X-RAY 12/31/2021 X-RAY 07/09/2021 US GUIDED NEEDLE BIOPSY 07/14/2021 MRI UPPER EXT JOINT W/O CONTRAST 2020 Encounters Encounter Diagnosis Start Date Code Code Sys tem Disorder of bone 01/17/2024 80221258 SNOMED-CT Personal Care Team Section Performer Name Performer Role Active Date Inactive Da te
--- OUTSIDE RECORDS SUMMARY | 2024-09-10 17:53 | XMS_ITS ---
Author Organization Unknown Address [address] [place] [address] [phone] Phone Care Team Providers Care Nnp Name Role Phone BOY Palafox Attending Unavailable MELINDA Oakes Primary Unavailable Social History Type Status Start Date End Date Code Code Syst em Smoking History Never smoker (Never Smoked) 538772684 SNOMED CT Sex Female Assessment You had [...] Date Status Code Code System DIABETES active 12594037 SNOMED-CT HIGH CHOLESTEROL active 02118259 SNO MED-CT ANXIETY active 93936237 SNOMED-CT Allergies and Adverse Reactions Allergy Substance Reaction Severity Start Date Concern Status Co de Code System No Known Drug Allergies Active 977090189 SNOMED-CT Plan of Treatment MRI LOWER EXT W/O CONTRAST 01/17/2024 US ABDOMEN LIMITED 1 ORGAN 02/22/2023 X-RAY 12/31/2021 X-RAY 07/09/2021 US GUIDED NEEDLE BIOPSY 07/14/2021 MRI UPPER EXT JOINT W/O CONTRAST 2020 Encounters Encounter Diagnosis Start Date Code Code Sys tem 01/15/2024 59781772511177189 SNOMED-CT Personal Care Team Section Performer Name Performer Role Active Date Inactive Da te
--- OUTSIDE RECORDS SUMMARY | 2024-09-10 17:54 | XMS_ITS | Encounter Summary ---
Author Organization [facility] Address [address] [place] [address] Care Team Providers Care Forensic Specialist Name Role Phone Glenn Epperson MD Primary Care Provider Un available Encounter Details Date Type Department Care Team (Late st Contact Info) Description 02/04/2019 Historical Results Only [facility] - [facility] - [place] [address] [place] [address] [phone] Geo Tuttle MD [address] [place] [phone] Social History Tobacco Use Types Packs/Day [...] (02/04/2019) 02/04/2019 02/04/2019 15: 55 EDT Narrative [facility] - 02/05/2019 16:19 EDT ----- ------- Name: STONE COLLAZO ? : [birth year] ?Age/Sex: 48/F ?Unit#: [id number] ? Loc: LAB.OPX ? Status: REG REF ?? Reg Date: 02/04/19 ? Pt.Phone Number: ? ----- ------- Specimen: [id number] ? STATUS: SOUT ?Spec Date:02/04/19 ? Physician Copies: ?Geo Tuttle MD Tissues: A ?? Breast Needle (LEFT @ 8 O'CLOCK) ? Glenn Epperson CPT: 53654 ?? Units: ??1 ?FINAL DIAGNOSIS ? BREAST, [...] confirmed the above diagnosis. Test Performed by [facility], [address] [place] [id number] Television And Radio Repairer: Shahida Melendez MD PHD ----- ------- [facility] Gunars Ziedins MD PATHOLOGY ORDERABLES F inal Result [facility] documented in this encounter Visit Diagnoses Not on filedocumented in this encounter Care Teams Forensic Specialist Relationship Specialty Start Date End Date Glenn Epperson MD PCP - General 07/15/15 02/28/21 documented as of this encounter
--- OUTSIDE RECORDS SUMMARY | 2024-09-10 17:54 | XMS_ITS ---
Author Organization Unknown Address [address] [place] [address] [phone] Phone Care Team Providers Care Ota Name Role Phone BOY Palafox Attending Unavailable DEJA Mckeon Physician News Camera Operator Unavailable MELINDA Oakes Primary Unavailable Social History Type Status Start Date End Date Code Code Syst em Smoking History Never smoker (Never Smoked) 454027071 SNOMED CT Sex Female Vital Signs Vital Sign Value Unit [place] Value [place] Unit Date/Time Recent/Initial? Code Code System Systolic [...] Median Nerve At Carpal Tunnel 03/12/2024 completed 74717 CPT Problems Problem Start Date Resolved Date Status Code Code System DIABETES active 94573067 SNOMED-CT HIGH CHOLESTEROL active 62651627 SNO MED-CT ANXIETY active 37712092 SNOMED-CT Allergies and Adverse Reactions Allergy Substance Reaction Severity Start Date Concern Status Co de Code System No Known Drug Allergies Active 897877810 SNOMED-CT Plan of Treatment MRI LOWER EXT [...]
--- OUTSIDE RECORDS SUMMARY | 2024-09-10 17:54 | XMS_ITS | Encounter Summary ---
Author Organization [facility] Address [address] [place] [address] Care Team Providers Care Oil Field Technician Name Role Phone NasirCiro Primary Care Provider NasirCiro carty Unavailable [phone] Unknown, Provider Primary Care Provider Unava ilable Encounter Details Date Type Department Care Team (Late st Contact Info) Description 03/02/2021 Results Only Imaging [facility] Radiology Results [address] [place], [place] [address] Heena Mccray, HR ADVISOR [address] [place], [place] [phone] Social History Tobacco Use Types Packs/Day Years [...] EXAM: MAMMOGRAM/MAMMO BILATERAL SCREEN W ??EX. D/ (2575) ? CLINICAL INFORMATION: ? Z12.31 SCREENING ? [...] MD ? CC: ? Transcribed Date/Time: 03/02/2021 (7562) ? Retail Merchandising Specialist: ? Printed Date/Time: 03/02/2021 (5504) ? PAGE 1 ? Signed Report ? [...] Marmolejo MD CC: Transcribed Date/Time: 03/02/2021 (1431) Retail Merchandising Specialist: Printed Date/Time: 03/02/2021 (9006) PAGE 1 Signed Report Heena Mccray HR ADVISOR IMG MAMMOGRAPHY ORDERABLES Fi nal Result documented in this encounter Visit Diagnoses Not on filedocumented in this encounter Care Teams Oil Field Technician Relationship Specialty Start Date End Date Ciro Best DO [address] [facility], [address] [place] [address] PCP - General Obstetrics and Gynecology 03/01/21 9/2 04/26 Unknown, Provider, [address] [facility], [address] [place] [address] PCP - General 06/02/23 Ciro Best DO [address] [place] [address], [address] [place] [address] Obstetrics and Gynecology 06/02/23 documented as of this encounter
--- OUTSIDE RECORDS SUMMARY | 2024-09-10 17:54 | XMS_ITS | Referral Summary ---
Author Organization [facility] Address [address] [place] [address] Care Team Providers Care Animal Treatment Investigator Name Role Phone Ciro Best DO Unavailable [phone] Unknown, Provider Primary Care Provider Unava ilable Encounters Date Type Department Care Team Description 07/29/2024 10:53 EST - 07/29/2024 23:59 EST Hospital Encounter [facility] [address] [place], [place] [address] Encounter for screening mammogram for malignant neoplasm [...] needed we will [place] [address] [id number] Narrative 07/31/2024 7:34 EST MA BREAST SCREENING ANTWAN BILATERAL ??07/29/2024 11:03 AM History: routine screening Comparison: ??Comparison has been made to previous images . ? Technique: Routine 3D tomosynthesis with synthesized 2D views with CAD Breast Composition: There are scattered areas of fibroglandular density. Bilateral Breast Findings: ??No significant masses, calcifications or other abnormalities are seen. Resulting Agency Comment [id number] Procedure Note Jackson Marmolejo MD - 07/31/2024 [...] is needed we will contact yourpatient directly. [place] [phone] [id number] us Heena Mccray NP IMG MAMMOGRAPHY ORDERABLES Fi nal Result from Last [address] [place] [place] [address] [facility] [employer] Care Teams Animal Treatment Investigator Relationship Specialty Start Date End Date Unknown, Provider, [address] [facility], [address] [place] [address] PCP - General 06/02/23 Ciro Best DO [address] [place] [address], [address] [place] [address] Obstetrics and Gynecology 06/02/23
--- OUTSIDE RECORDS SUMMARY | 2024-09-10 17:54 | XMS_ITS | Encounter Summary ---
Author Organization [facility] Address [address] [place] [address] Care Team Providers Care Belt Picker Name Role Phone [place]bockCiro carty Primary Care Provider [phone] Reason for Referral * Radiology Services (Routine/Next Available) - Authorization Not Required Specialty Diagnoses / Procedures Referred By Contac t Referred To Contact Diagnoses Encounter for other screening for malignant neoplasm of breast Procedures MA BREAST SCREENING ANTWAN BILATERAL Heena Mccray NP [address] [place] [address] Phone: tel: fax: [facility] Referral ID Status Reason Start Date Expiration Date Visits Requested Visits Authorized [id number] Authorization Not Required 02/07/2023 1 1 Reason for Visit * Radiology Services (Routine/Next Available) - Authorization Not Required Specialty Diagnoses / Procedures Referred By Contac t Referred To Contact Diagnoses Encounter for other screening for malignant neoplasm of breast Procedures MA BREAST SCREENING ANTWAN BILATERAL Heena Mccray NP [address] [place] [address] Phone: tel: fax: [facility] Referral ID Status Reason Start Date Expiration Date Visits Requested Visits Authorized [id number] Authorization Not Required 02/07/2023 1 1 Encounter Details Date Type Department Care Team (Latest Contact Info) Description 02/22/2023 16:40 EDT - 02/22/2023 23:59 EDT Hospital Encounter [facility] [address] [place] [address] Encounter for other screening for malignant neoplasm [...] breast documented in this encounter Care Teams Belt Picker Relationship Specialty Start Date End Date Ciro Best DO [address] [place] [address], [address] [place] [address] PCP - General Obstetrics and Gynecology 03/01/21 9/2 04/26 documented as of this encounter
--- OUTSIDE RECORDS SUMMARY | 2024-09-10 17:54 | XMS_ITS | Encounter Summary ---
Author Organization [facility] Address [address] [place] [address] Care Team Providers Care Network Engineer Name Role Phone Glenn Epperson MD Primary Care Provider Un available Reason for Visit * Reason Onset Date Comments Biopsy Results 02/07/2019 Encounter Details Date Type Department Care Team (Late st Contact Info) Description 02/07/2019 Telephone [facility] General Surgery - [place] [address] [address] Geo Tuttle MD [address] [address] Biopsy Results Social History Tobacco [...] on filedocumented in this encounter Care Teams Network Engineer Relationship Specialty Start Date End Date Glenn Epperson MD PCP - General 07/15/15 02/28/21 documented as of this encounter
--- OUTSIDE RECORDS SUMMARY | 2024-09-10 17:54 | XMS_ITS | Encounter Summary ---
Author Organization [facility] Address [address] [place] [address] Care Team Providers Care Marine Steam Fitter Name Role Phone [place] CreekCiro carty Primary Care Provider NasirCiro carty Unavailable [phone] Unknown, Provider Primary Care Provider Unava ilable Encounter Details Date Type Department Care Team (Late st Contact Info) Description 04/08/2021 Lab Requisition [facility] Pathology & Laboratory Medicine - [facility] [address] [place] [address] Heena Mccray, SENIOR LINUX UNIX ENGINEER [address] [place], [place] [phone] Encounter for other general examination Social History [...] types, PCR Negative Negative 04/16/2021 14:43 EDT [facility] Comment:No E6 or E7 mRNA is detected from HPV types 16,18,31,33,35,39,45,51,52,56,58,59,66, and 68 by kindergarten tutor mediated amplification. Papanicolaou smear specimen (specimen) CERVIX UTERI STRUCTURE / Unknown 04/06/2021 14:30 EDT 04/15/2021 13:01 EDT Heena Mccray NP MICROBIOLOGY - GENERAL ORDERA BLES Final Result [facility] [address] [place] [address] * PAP TEST (04/06/2021 14:30 EDT) Specimens A. Cervix and/or Endocervix , ThinPrep Imaging System with Manual Evaluation 04/16/2021 14:43 EDT [facility] Specimen Adequacy Satisfactory for Evaluation - transformation zone component present 04/16/2021 14:43 EDT [facility] General Categorization Negative for intraepithelial lesion or malignancy 04/16/2021 14:43 EDT [facility] Descriptive Diagnosis Shift in elsi present suggestive of bacterial vaginosis. 04/16/2021 14:43 T [facility] Attestation . 04/16/2021 14:43 T [facility] at 1443 Clinical History See below 04/16/20 14:43 EDT [facility] HPV The result for the Human Papillomavirus (HPV) Detection-High Risk Types is Negative. No E6 or E7 mRNA is detected from HPV types 16,18,31,33,35,39 ,45,51,52,56,58,5 9,66, and 68 by kindergarten tutor mediated amplification.Nury ting was performed on specimen [id number] and was resulted on 04/16/2021 1437 EDT by LUIS, LAB INSTRUMENT RESULTS IN 04/16/2021 14:43 EDT [facility] Performing Lab [facility] 04/16/2021 14:43 EDT [facility] Scanned Images 04/16/2021 14:43 EDT [facility] Papanicolaou smear specimen (specimen) CERVIX UTERI STRUCTURE / Unknown 04/06/2021 14:30 EDT 04/08/2021 11:14 EDT us Heena Mccray SENIOR LINUX UNIX ENGINEER PATHOLOGY ORDERABLES Final Re sult [facility] [address] [place] [address] documented in this encounter Visit Diagnoses Diagnosis Encounter for other general examination documented in this encounter Care Teams Marine Steam Fitter Relationship Specialty Start Date End Date Ciro Best DO [address] [facility], [address] [place] [address] PCP - General Obstetrics and Gynecology 03/01/21 9/04/26 Unknown, Provider, [address] [facility], [address] [place] [address] PCP - General 06/02/23 Ciro Best DO [address] [facility], [address] [place] [address] Obstetrics and Gynecology 06/02/23 documented as of this encounter
--- OUTSIDE RECORDS SUMMARY | 2024-09-10 17:54 | XMS_ITS ---
Author Organization Unknown Address [address] [place] [address] [phone] Phone Care Team Providers Care Naturalist Name Role Phone BOY Palafox Attending Unavailable Social History Type Status Start Date End Date Code Code Syst em Smoking History Never smoker (Never Smoked) 315507210 SNOMED CT Sex Female Assessment You had [...] Date Status Code Code System DIABETES active 95290490 SNOMED-CT HIGH CHOLESTEROL active 47907039 SNO MED-CT ANXIETY active 99342132 SNOMED-CT Allergies and Adverse Reactions Allergy Substance Reaction Severity Start Date Concern Status Co de Code System No Known Drug Allergies Active 870252990 SNOMED-CT Plan of Treatment MRI LOWER EXT W/O CONTRAST 01/17/2024 US ABDOMEN LIMITED 1 ORGAN 02/22/2023 X-RAY 12/31/2021 X-RAY 07/09/2021 US GUIDED NEEDLE BIOPSY 07/14/2021 MRI UPPER EXT JOINT W/O CONTRAST 2020 Encounters Encounter Diagnosis Start Date Code Code Sys tem 03/12/2024 738852114360899 SNOMED-CT Personal Care Team Section Performer Name Performer Role Active Date Inactive Da te
--- OUTSIDE RECORDS SUMMARY | 2024-09-10 17:54 | XMS_ITS | Encounter Summary ---
Author Organization [facility] Address [address] [place] [address] Care Team Providers Care Delivery Lead Name Role Phone Nasir Ciro Primary Care Provider [phone] NasirCiro carty Unavailable [phone] Unknown, Provider Primary Care Provider Unava ilable Encounter Details Date Type Department Care Team (Late st Contact Info) Description 12/28/2021 Lab Requisition [facility] Pathology & Laboratory Medicine - [facility] [address] [place], [place] [phone] Outr Resulting Lab, Provider Social History Tobacco [...] Priority Date/Time Associated Diagnosis Comments ZZCOVID-19 TEST [facility] PCR Today 12/28/2021 12:00 EDT COVID-19 TESTING Routine 12/28/2021 12:0 0 EDT documented in this encounter Results * COVID-19 TEST [facility] PCR (12/28/2021 12:00 EDT) Swab 12/28/2021 12:0 0 EDT 12/29/2021 16:24 EDT us Provider Outr Resulting Lab MICROBIOLOGY - GENER AL ORDERABLES Final Result [facility] [address] [place] [address] * COVID-19 TESTING (12/28/2021 12:00 EDT) COVID-19 rt-PCR Result Negative Negative 12/30/2021 11:39 EDT [facility] Comment: This test has not [...] performed using the susan SARS-CoV-2 assay ([employer] on the Susan 6800 System Performing Lab Susan [address] [facility] 12/30/2021 11:39 EDT [facility] Swab 12/28/2021 12:0 0 EDT 12/29/2021 16:24 EDT us Provider Outr Resulting Lab MICROBIOLOGY - GENER AL ORDERABLES Final Result [facility] [address] [place] [address] documented in this encounter Visit Diagnoses Not on filedocumented in this encounter Care Teams Delivery Lead Relationship Specialty Start Date End Date Ciro Best DO [address] [facility], [address] [place] [address] PCP - General Obstetrics and Gynecology 03/01/21 904/26 Unknown, Provider, [address] [facility], [address] [place] [address] PCP - General 06/02/23 Ciro Best DO [address] [place] [address], [address] [place] [address] Obstetrics and Gynecology 06/02/23 documented as of this encounter
--- OUTSIDE RECORDS SUMMARY | 2024-09-10 17:54 | XMS_ITS | Encounter Summary ---
Author Organization [facility] Address [address] [place] [address] Care Team Providers Care Job Superintendent Name Role Phone Ciro Best DO Unavailable [phone] Unknown, Provider Primary Care Provider Unava ilable Reason for Referral * Radiology Services (Routine/Next Available) - Authorization Not Required Specialty Diagnoses / Procedures Referred By Contac t Referred To Contact Diagnoses Encounter for screening mammogram for malignant neoplasm of breast Procedures MA BREAST SCREENING ANTWAN BILATERAL Heena Mccray NP [address] [place] [address] Phone: tel: fax: [facility] Referral ID Status Reason Start Date Expiration Date Visits Requested Visits Authorized [id number] Authorization Not Required 04/25/2024 1 1 Reason for Visit * Radiology Services (Routine/Next Available) - Authorization Not Required Specialty Diagnoses / Procedures Referred By Contac t Referred To Contact Diagnoses Encounter for screening mammogram for malignant neoplasm of breast Procedures MA BREAST SCREENING ANTWAN BILATERAL Heena Mccray NP [address] [place] [address] Phone: tel: fax: [facility] Referral ID Status Reason Start Date Expiration Date Visits Requested Visits Authorized [id number] Authorization Not Required 04/25/2024 1 1 Encounter Details Date Type Department Care Team (Latest Contact Info) Description 07/29/2024 10:53 EST - 07/29/2024 23:59 EST Hospital Encounter [facility] Mammography [address] [place] [address] Encounter for screening mammogram for malignant neoplasm [...] needed we will contact your patient directly. [facility] [address] [place] [address] [id number] Narrative 07/31/2024 7:34 EST MA BREAST SCREENING ANTWAN BILATERAL ??07/29/2024 11:03 AM History: routine screening Comparison: ??Comparison has been made to previous images . ? Technique: Routine 3D tomosynthesis with synthesized 2D views with CAD Breast Composition: There are scattered areas of fibroglandular density. Bilateral Breast Findings: ??No significant masses, calcifications or other abnormalities are seen. Resulting Agency Comment [id number] Procedure Note Jackson Marmolejo MD - 07/31/2024 [...] is needed we will contact yourpatient directly. [address] [address] [id number] Heena Mccray ENGINEERING PSYCHOLOGIST IMG MAMMOGRAPHY ORDERABLES Fi nal Result documented in this encounter Visit Diagnoses Diagnosis Encounter for screening mammogram for malignant neoplasm of breast Other screening mammogram documented in this encounter Care Teams Job Superintendent Relationship Specialty Start Date End Date Unknown, Provider, [address] [place] [address] [address], [address] [place] [address] PCP - General 06/02/23 Ciro Best DO [address] [place] [address] [facility], [address] [place] [address] Obstetrics and Gynecology 06/02/23 documented as of this encounter
--- OUTSIDE RECORDS SUMMARY | 2024-09-10 17:54 | XMS_ITS | Clinical Summary ---
Author Organization [facility] Address [address] [place] [address] Care Team Providers Care Flue Tile Press Operator Name Role Phone Ciro Best DO Unavailable [phone] Unknown, Provider MD Primary Care Provider Unava [...] EST - 07/29/2024 23:59 EST Hospital Encounter [facility] [place] Mammography [address] [place] [address] Encounter for screening mammogram for malignant neoplasm [...] needed we will [place] [address] [id number] Narrative 07/31/2024 7:34 EST MA BREAST SCREENING ANTWAN BILATERAL ??07/29/2024 11:03 AM History: routine screening Comparison: ??Comparison has been made to previous images . ? Technique: Routine 3D tomosynthesis with synthesized 2D views with CAD Breast Composition: There are scattered areas of fibroglandular density. Bilateral Breast Findings: ??No significant masses, calcifications or other abnormalities are seen. Resulting Agency Comment [id number] Procedure Note Jackson Marmolejo MD - 07/31/2024 [...] is needed we will [place] [address] [id number] Heena Mccray NP IMG MAMMOGRAPHY ORDERABLES Fi nal Result from Last 3 Months Insurance [facility] Care Teams Flue Tile Press Operator Relationship Specialty Start Date End Date Unknown, Provider, [address] [facility], [address] [place] [address] PCP - General 06/02/23 Ciro Best DO [address] [place] [address]-A, [address] [place] [address] Obstetrics and Gynecology 06/02/23
--- OUTSIDE RECORDS SUMMARY | 2024-09-10 17:54 | XMS_ITS ---
Author Organization Unknown Address [address] [place] [phone] Phone Care Team Providers Care Flue Tile Press Operator Name Role Phone MELINDA Oakes Attending Unavailable Results XR RIBS UNILAT W PA CHEST 3V RT* - Completed: 05/09/2024 13:04 LOINC: [facility] RADIOLOGY [place], [place] [address] RADIOLOGY POWERHOUSE MECHANIC HELPER REPORT Patient Name: STONE DONALD MRN: Sex: : Age: [id number] F [id number] Account: Accession: Admit: StayType: [id number] 05/09/2024 O Ordered: Order ID: Submitted: Ordering Provider: 05/09/2024 12:40 [id number] PEDRO CHOI Completed: Technologist: Resulted: 05/09/2024 12:36 [...] who have questions please contact the health clinical care coordinator that requested your imaging first. Electronically signed by: Farhat Herbert MD [facility] ([phone]), at 05/09/2024 1:22 PM Social History Type Status Start Date End Date Code Code Syst em Smoking History Never smoker (Never Smoked) 480988190 SNOMED CT Sex Female Assessment You had [...] Date Status Code Code System DIABETES active 40606935 SNOMED-CT HIGH CHOLESTEROL active 35009277 SNO MED-CT ANXIETY active 86088515 SNOMED-CT Allergies and Adverse Reactions Allergy Substance Reaction Severity Start Date Concern Status Co de Code System No Known Drug Allergies Active 421814649 SNOMED-CT Plan of Treatment MRI LOWER EXT W/O CONTRAST 01/17/2024 US ABDOMEN LIMITED 1 ORGAN 02/22/2023 X-RAY 12/31/2021 X-RAY 07/09/2021 US GUIDED NEEDLE BIOPSY 07/14/2021 MRI UPPER EXT JOINT W/O CONTRAST 2020 Encounters Encounter Diagnosis Start Date Code Code Sys tem Pleuritic pain 05/09/2024 3869727 SNOMED-CT Personal Care Team Section Performer Name Performer Role Active Date Inactive Da te
--- OUTSIDE RECORDS SUMMARY | 2024-09-10 17:54 | XMS_ITS | Encounter Summary ---
Author Organization [facility] Address [address] [place] [address] Care Team Providers Care Career Education Teacher Name Role Phone Ciro Best DO Primary Care Provider [phone] Encounter Details Date Type Department Care Team (Late st Contact Info) Description 03/30/2022 Prep for Procedure [facility] Endoscopy [address] [place] [address] Ismael Garsia MD [facility] [address] [place] [address] Social History Tobacco Use Types [...] on filedocumented in this encounter Care Teams Career Education Teacher Relationship Specialty Start Date End Date Ciro Best DO [address] [facility], [address] [place] [address] PCP - General Obstetrics and Gynecology 03/01/21 9/04/26 documented as of this encounter
--- OUTSIDE RECORDS SUMMARY | 2024-09-10 17:55 | XMS_ITS | Encounter Summary ---
Author Organization [facility] Address [address] [place] [address] Care Team Providers Care Catshovel Driver Name Role Phone Glenn Epperson MD Primary Care Provider Un available Encounter Details Date Type Department Care Team (Late st Contact Info) Description 01/18/2019 Historical Results Only [facility] Radiology Results [address] [place], [place] [id number] Erika Shepherd NP CN [address] [facility], [address] [place] [address] Social History Tobacco Use Types [...] CC: ? Transcribed Date/Time: 01/18/2019 (1003) ? Oral Surgery Technician: ? Printed Date/Time: 05/23/2019 (0243) ? PAGE [...] Coker MD CC: Transcribed Date/Time: 01/18/2019 (1003) Oral Surgery Technician: Printed Date/Time: 05/23/2019 (5180) PAGE 1 Signed Report Erika Shepherd NP CNM IMG MAMMOGRAPHY ORDERABLES Final Result documented in this encounter Visit Diagnoses Not on filedocumented in this encounter Care Teams Catshovel Driver Relationship Specialty Start Date End Date Glenn Epperson MD PCP - General 07/15/15 02/28/21 documented as of this encounter
--- OUTSIDE RECORDS SUMMARY | 2024-09-10 17:55 | XMS_ITS | Encounter Summary ---
Author Organization [facility] Address [address] [place] [address] Care Team Providers Care Manager Utilization Review Name Role Phone Glenn Epperson MD Primary Care Provider Un available Encounter Details Date Type Department Care Team (Latest Contact Info) Description 01/17/2019 13:30 EDT - 01/17/2019 23:59 EDT Hospital Encounter [address] [address] Unknown, Provider, MD Discharge Disposition: Home or [...] Code Departure Means Destination Home or Self [facility] documented in this encounter Plan of Treatment Not on file documented as of this encounter Visit Diagnoses Not on filedocumented in this encounter Care Teams Manager Utilization Review Relationship Specialty Start Date End Date Glenn Epperson MD PCP - General 07/15/15 02/28/21 documented as of this encounter
--- OUTSIDE RECORDS SUMMARY | 2024-09-10 17:55 | XMS_ITS | Encounter Summary ---
Author Organization [facility] Address [address] [place] [address] Care Team Providers Care Nursing Education Consultant Name Role Phone Unavailable Primary Care Provider Unavailabl e Encounter Details Date Type Department Care Team (Latest Contact Info) Description 11/08/2002 11:27 EST - 11/08/2002 11:59 EST Hospital Encounter [facility] conversion [address] [place] [address] Ale Mendez MD Discharge Disposition: Home or [...] 70 - 110 MG/DL [facility] Professor Of Genetics ID [id number] Test Performed by Nursing Services [facility] 11/08/2002 13:2 0 EST 11/09/2002 11:30 EST us Ale Mendez MD CHEMISTRY & BLOOD GAS ORDERA BLES Final Result Performing Organization Address City/State/[facility] Co de Phone Number [place] [phone] documented in this encounter Visit Diagnoses Not on filedocumented in this encounter
--- OUTSIDE RECORDS SUMMARY | 2024-09-10 17:55 | XMS_ITS | Encounter Summary ---
Author Organization [facility] Address [address] [place] [address] Care Team Providers Care Footwear Sales Associate Name Role Phone Unavailable Primary Care Provider Unavailabl e Encounter Details Date Type Department Care Team (Late st Contact Info) Description 07/05/1999 13:36 EST Hospital Encounter [facility] [address] [place] [address] Ciro Best, [address] [facility], [address] [place] [address] Social History Tobacco Use Types Packs/Day Years [...]
--- OUTSIDE RECORDS SUMMARY | 2024-09-10 17:55 | XMS_ITS | Encounter Summary ---
Author Organization [facility] Address [address] [place] [address] Care Team Providers Care Printer Slotter Helper Name Role Phone Glenn Epperson MD Primary Care Provider Un available Encounter Details Date Type Department Care Team (Late st Contact Info) Description 01/09/2013 Historical Results Only [facility] - Main [place] [address] [place] [address] Ciro Best, [address] [facility], [address] [place] [address] Social History Tobacco Use Types [...] (01/09/2013) 01/09/2013 01/09/2013 18: 22 EDT Narrative [facility] - 03/06/2013 12:15 EDT ----- ------- Name: ODILONSTONE ? : [birth year] ?Age/Sex: 48/F ?Unit#: [id number] ? Loc: AGO ? Status: REG POV ?? Reg Date: 01/09/13 ? Pt.Phone Number: ? ----- ------- Specimen: [id number] ?STATUS: SOUT ?Spec Date:01/09/13 ? Physician Copies: ?Ciro Best DO Tissues: ? Cervical/Endo Pap ? CPT: 61532 ?? Units: ??1 ----- ------- ? CYTOLOGY [...] confirmed the above diagnosis. Test Performed by [facility], [address] [facility] [address] Potato Chip Fryer: Shahida Melendez MD PHD ----- ------- us Ciro Best DO PATHOLOGY ORDERABLES Final Res ult [facility] documented in this encounter Visit Diagnoses Not on filedocumented in this encounter Care Teams Printer Slotter Helper Relationship Specialty Start Date End Date Glenn Epperson MD PCP - General 07/15/15 02/28/21 documented as of this encounter
--- OUTSIDE RECORDS SUMMARY | 2024-09-10 17:55 | XMS_ITS | Encounter Summary ---
Author Organization [facility] Address [address] [place] [address] Care Team Providers Care Tech Writer Name Role Phone Unavailable Primary Care Provider Unavailabl e Encounter Details Date Type Department Care Team (Late st Contact Info) Description 12/04/2002 21:15 EST Hospital Encounter [facility] [place] [facility] [address] [place] [address] Thompson Macedo MD [address] [facility], [address] [place] [phone] Discharge Disposition: Home or Self Care Social [...]
--- OUTSIDE RECORDS SUMMARY | 2024-09-10 17:55 | XMS_ITS | Encounter Summary ---
Author Organization [facility] Address [address] [place] [address] Care Team Providers Care Hothouse Worker Name Role Phone Unavailable Primary Care Provider Unavailabl e Encounter Details Date Type Department Care Team (Late st Contact Info) Description 07/15/2002 Results Only [facility] [place] [facility] [address] [place] [address] Willam Eng MD [address] [place] [address] Social History Tobacco Use Types Packs/Day Years [...] ORDERABL ES Final Result Performing Organization Address City/State/[facility] Co de Phone Number [facility] [address] [place] [address] documented in this encounter Visit Diagnoses Not on filedocumented in this encounter
--- OUTSIDE RECORDS SUMMARY | 2024-09-10 17:55 | XMS_ITS | Encounter Summary ---
Author Organization [facility] Address [address] [place] [address] Care Team Providers Care Utility Tractor Operator Name Role Phone Unavailable Primary Care Provider Unavailabl e Encounter Details Date Type Department Care Team (Late st Contact Info) Description 08/26/[address] [facility] - [facility] conversion [address] [place] [address] Willam Eng MD [address] [place] [address] Social History Tobacco Use Types Packs/Day Years [...] ORDERABLES Fi nal Result Performing Organization Address City/[facility] Co de Phone Number [facility] [address] [place] [address] * HEMOGLOBIN A1C (08/26/2002 14:34 EST) Hemoglobin A1C 4.6 % [facility] Comment: <6% Normal Range <7% Recommended goal by ADA guidelines 7-8% Suboptimal by ADA guidelines >8% Further action suggested by ADA guidelines 08/26/2002 14:3 4 EST 08/26/2002 14:36 EST Willam Eng MD CHEMISTRY & BLOOD GAS ORDERABL ES Final Result Performing Organization Address [facility] Co de Phone Number [facility] [address] [place] [address] documented in this encounter Visit Diagnoses Not on filedocumented in this encounter
--- OUTSIDE RECORDS SUMMARY | 2024-09-10 17:55 | XMS_ITS | Encounter Summary ---
Author Organization [facility] Address [address] [place] [address] Care Team Providers Care Squeegee Tender Name Role Phone Vera Epperson MD Primary Care Provider Un available Reason for Visit * Reason Comments Abnormal Radiology Findings * Consult (3 - 10 Business Days) - Closed Specialty Diagnoses / Procedures Referred By Kacey wilkinson Referred To Contact General Surgery Diagnoses Abnormal mammogram Erika Shepherd NP [facility] Phone: tel: fax: [facility] [address] [address] Phone: tel: fax: Referral ID Status Reason Start Date Expiration Date Visits Re quested Visits Authorized [id number] Closed 1 1 Encounter Details Date Type Department Care Team (Late st Contact Info) Description 02/04/2019 14:00 EDT Office Visit [facility] [address] [address] Geo Tuttle MD [address] [place] [phone] Abnormal mammogram of left breast (Primary [...] from the original note were not included. 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 added in this encounter Care Teams Squeegee Tender Relationship Specialty Start Date End Date Vera Epperson MD PCP - General 07/15/15 02/28/21 documented as of this encounter
--- OUTSIDE RECORDS SUMMARY | 2024-09-10 17:55 | XMS_ITS ---
Author Organization Unknown Address [address] [place] [phone] Phone Care Team Providers Care Thread Puller Name Role Phone PATTIE MARIO MD Attending Unavailable MELINDA VASQUEZ Primary Unavailable Social History Type Status Start Date End Date Code Code Syst em Smoking History Never smoker (Never Smoked) 148642402 SNOMED CT Sex Female Medications Medication Start Date End Date Route Frequency Dose Code Code System Medication Instructions Home Meds Aspir Low 81MG Oral Tablet, Enteric Coated 01/03/2019 10/13/2022 ORAL DAILY 81 MILLIGRAMS 3295593 RxNorm TAKE 81 MILLIGRAMS ORAL DAILY LANTUS [...] Tablet, Extended Release 01/03/2019 10/13/2022 ORAL DAILY [id number] RxNorm TAKE 000 MILLIGRAMS ORAL DAILY Assessment [...] Date Status Code Code System DIABETES active 08289792 SNOMED-CT HIGH CHOLESTEROL active 38537818 SNO MED-CT ANXIETY active 05869340 SNOMED-CT Allergies and Adverse Reactions Allergy Substance Reaction Severity Start Date Concern Status Co de Code System No Known Drug Allergies Active 642574813 SNOMED-CT Plan of Treatment MRI LOWER EXT W/O CONTRAST 01/17/2024 US ABDOMEN LIMITED 1 ORGAN 02/22/2023 X-RAY 12/31/2021 X-RAY 07/09/2021 US GUIDED NEEDLE BIOPSY 07/14/2021 MRI UPPER EXT JOINT W/O CONTRAST 2020 Encounters Encounter Diagnosis Start Date Code Code Sys tem Calcific tendinitis of right shoulder 04/01/2021 303 [id number] SNOMED-CT Personal Care Team Section Performer Name Performer Role Active Date Inactive Da te
--- OUTSIDE RECORDS SUMMARY | 2024-09-10 17:55 | XMS_ITS | Encounter Summary ---
Author Organization [facility] Address [address] [place] [address] Care Team Providers Care Dressage Judge Name Role Phone Unavailable Primary Care Provider Unavailabl e Encounter Details Date Type Department Care Team (Late st Contact Info) Description 11/12/2002 16:42 EST Hospital Encounter [facility] - Other [address] [place], [place] [address] Isabel Casey MD [address] [facility], [address] [place] [phone] Unknown, Provider, Social History Tobacco Use Types [...] ISOLATED [facility] Report Status Final [id number] [facility] 11/12/2002 16:0 0 EST 11/13/2002 8:44 EST us Isabel Casey MD HISTORICAL LAB FOR SQ LOAD F inal Result [facility] [address] [place] [address] documented in this encounter Visit Diagnoses Not on filedocumented in this encounter
--- OUTSIDE RECORDS SUMMARY | 2024-09-10 17:55 | XMS_ITS | Encounter Summary ---
Author Organization [facility] Address [address] [place] [address] Care Team Providers Care Buzzle Buffer Name Role Phone Unavailable Primary Care Provider Unavailabl e Encounter Details Date Type Department Care Team (Late st Contact Info) Description 12/05/2002 8:28 EST - 12/07/2002 11:59 EST Hospital Encounter [facility] Mother/Baby Unit [address] [place], [place] [address] Naheed Eller MD [address] [facility], [facility] [address] [place] [address] Discharge Disposition: Home or Self [...] 70 - 110 MG/DL [facility] [employer] [place] [id number] Test Performed by Nursing Services [facility] 12/07/2002 7:34 EST 12/07/2002 11:59 EST us Naheed Eller MD CHEMISTRY & BLOOD GAS ORDE IMMANUEL Final Result Performing Organization Address [facility] Co de Phone Number [facility] [address] [place] [address] * (ABNORMAL) GLUCOSE, GLUCOMETER (12/06/2002 20:30 EST) Glucose, Fingerstick 148(H) 70 - 110 MG/DL [facility] [employer] Teacher [place] [id number] Test Performed by Nursing Services [facility] 12/06/2002 20:3 0 EST 12/07/2002 11:57 EST Naheed Eller MD CHEMISTRY & BLOOD GAS ORDE IMMANUEL Final Result Performing Organization Address City/[facility]/ZIP Co de Phone Number [facility] [address] [place] [address] * (ABNORMAL) GLUCOSE, GLUCOMETER (12/06/2002 14:06 EST) Glucose, Fingerstick 135(H) 70 - 110 MG/DL [facility] [address] [employer] Teacher [place] [id number] Test Performed by Nursing Services [facility] 12/06/2002 14:0 6 EST 12/07/2002 11:56 EST us Naheed Eller MD CHEMISTRY & BLOOD GAS ORDE RABLES Final Result Performing Organization Address [facility]/ZIP Co de Phone Number [facility] [address] [place] [address] * (ABNORMAL) GLUCOSE, GLUCOMETER (12/06/2002 10:00 EST) Glucose, Fingerstick 115(H) 70 - 110 MG/DL [facility] [address] [employer] Teacher [place] [id number] Test Performed by Nursing Services [facility] 12/06/2002 10:0 0 EST 12/06/2002 13:09 EST us Naheed Eller MD CHEMISTRY & BLOOD GAS ORDE RABLES Final Result Performing Organization Address [facility]/ZIP Co de Phone Number [facility] [address] [place] [address] * GLUCOSE, GLUCOMETER (12/06/2002 7:18 EST) Glucose, Fingerstick 76 70 - 110 MG/DL [facility] [address] [employer] Teacher [place] [id number] Test Performed by Nursing Services [facility] 12/06/2002 7:18 EST 12/06/2002 13:08 EST us Naheed Eller MD CHEMISTRY & BLOOD GAS ORDE RABLES Final Result Performing Organization Address [facility]/ZIP Co de Phone Number [facility] [address] [place] [address] * GLUCOSE, GLUCOMETER (12/05/2002 19:29 EST) Glucose, Fingerstick 84 70 - 110 MG/DL [facility] [address] [employer] Teacher [place] [id number] Test Performed by Nursing Services [facility] 12/05/2002 19:2 9 EST 12/05/2002 22:27 EST Naheed Eller MD CHEMISTRY & BLOOD GAS ORDE RABLES Final Result Performing Organization Address [facility] de Phone Number [facility] [address] [place] [address] * GLUCOSE, GLUCOMETER (12/05/2002 16:25 EST) Glucose, Fingerstick 73 70 - 110 MG/DL [facility] [address] [employer] Teacher [place] [id number] Test Performed by Nursing Services [facility] 12/05/2002 16:2 5 EST 12/05/2002 22:26 EST Naheed Eller MD CHEMISTRY & BLOOD GAS ORDE RABLES Final Result Performing Organization Address [facility] de Phone Number [facility] [address] [place] [address] * GLUCOSE, GLUCOMETER (12/05/2002 13:07 EST) Glucose, Fingerstick 93 70 - 110 MG/DL [facility] [address] [employer] Teacher [place] [id number] Test Performed by Nursing Services [facility] 12/05/2002 13:0 7 EST 12/05/2002 22:25 EST us Naheed Eller MD CHEMISTRY & BLOOD GAS ORDE RABLES Final Result Performing Organization Address [facility] de Phone Number [facility] [address] [place] [address] * HOLD (12/05/2002 10:32 EST) Hold Sample for coagulation will be discarded after 4 hours Hold for further testing. Specimen will be held for 30 days. [facility] 12/05/2002 10:3 2 EST 12/05/2002 10:35 EST us Naheed Eller MD CHEMISTRY & BLOOD GAS ORDE RABLES Final Result Performing Organization Address City/[facility]/ZIP Co de Phone Number [facility] [address] [place] [address] * (ABNORMAL) GLUCOSE, PLASMA (12/05/2002 10:32 EST) Glucose, Plasma 123(H) 70 - 110 mg/dl [facility] 12/05/2002 10:3 2 EST 12/05/2002 10:35 EST us Naheed Eller MD CHEMISTRY & BLOOD GAS ORDE RABLES Final Result Performing Organization Address [facility] Co de Phone Number [facility] [address] [place] [address] * HEMAGRAM (12/05/2002 10:32 EST) WBC 10.04 4.0 - 12.4 K/cmm [facility] RBC 4.36 3.86 - 5.04 M/cmm [facility] Hemoglobin 13.0 11.6 - 15.2 gm/dl [facility] HCT 37.5 34.9 - 44.4 % [facility] MCV 86 81 - 98 fl [facility] MCH 29.8 26.7 - 33.3 pg [facility] MCHC 34.7 32.1 - 35.9 gm/dl [facility] PLT 240 141 - 320 K/cmm [facility] RDW-CV 14.1 11.7 - 14.6 % [facility] 12/05/2002 10:3 2 EST 12/05/2002 10:35 EST Naheed Eller MD HEMATOLOGY & PF4 ORDERABLE S Final Result Performing Organization Address [facility] Co de Phone Number [facility] [address] [place] [address] documented in this encounter Visit Diagnoses Not on filedocumented in this encounter
--- OUTSIDE RECORDS SUMMARY | 2024-09-10 17:55 | XMS_ITS | Encounter Summary ---
Author Organization [facility] Address [address] [place] [address] Care Team Providers Care Coil Strapper Name Role Phone Unavailable Primary Care Provider Unavailabl e Encounter Details Date Type Department Care Team (Late st Contact Info) Description 07/15/2002 13:49 EST Hospital Encounter [facility] - Other [address] [place] [address] Willam Eng MD [address] [place] [address] Unknown, Provider, Social History Tobacco Use Types [...]
--- OUTSIDE RECORDS SUMMARY | 2024-09-10 17:55 | XMS_ITS | Encounter Summary ---
Author Organization [facility] Address [address] [place] [address] Care Team Providers Care Timber Appraiser Name Role Phone Glenn Epperson MD Primary Care Provider Un available Encounter Details Date Type Department Care Team (Late st Contact Info) Description 01/29/2019 Historical Results Only [facility] Radiology Results [address] [place], [place] [id number] Erika Shepherd NP CN [address] [facility] [place] [address] Social History Tobacco Use Types [...] Letha at the office of Erika ? ABRLI Shepherd, on 01/29/2019 at 10:45 AM by Keysha. ? REPORT SIGNED IN OTHER VENDOR SYSTEM 01/31/2019 ?Reported By: Robert Coker MD ? CC: ? Transcribed Date/Time: 01/29/2019 (1047) ? Dairy Associate: ? Printed Date/Time: 05/23/2019 (0243) ? PAGE [...] Coker MD CC: Transcribed Date/Time: 01/29/2019 (1047) Dairy Associate: Printed Date/Time: 05/23/2019 (0247) PAGE 1 Signed Report us Erika Shepherd [...] CC: ? Transcribed Date/Time: 01/29/2019 (1047) ? Dairy Associate: [email or web address] ? Printed Date/Time: 05/23/2019 (0243) ? [...] Coker MD CC: Transcribed Date/Time: 01/29/2019 (1047) Dairy Associate: Printed Date/Time: 05/23/2019 (0281) PAGE 1 Signed Report Erika Shepherd NP CNM IMG MAMMOGRAPHY ORDERABLES Final Result documented in this encounter Visit Diagnoses Not on filedocumented in this encounter Care Teams Timber Appraiser Relationship Specialty Start Date End Date Glenn Epperson MD PCP - General 07/15/15 02/28/21 documented as of this encounter
--- OUTSIDE RECORDS SUMMARY | 2024-09-10 17:55 | XMS_ITS | Encounter Summary ---
Author Organization [facility] Address [address] [place] [address] Care Team Providers Care Reclaimer Name Role Phone Glenn Epperson MD Primary Care Provider Un available Encounter Details Date Type Department Care Team (Late st Contact Info) Description 01/31/2019 Abstract [facility] General Surgery - [place] [address] [facility] [address] [place] [address] Erika Shepherd NP [facility] [address] [place] [address] Social History Tobacco Use Types [...] 02/04/2019 added in this encounter Care Teams Reclaimer Relationship Specialty Start Date End Date Gelnn Epperson MD PCP - General 07/15/15 02/28/21 documented as of this encounter
--- OUTSIDE RECORDS SUMMARY | 2024-09-10 17:55 | XMS_ITS | Encounter Summary ---
Author Organization [facility] Address [address] [place] [address] Care Team Providers Care Chief Drafter Name Role Phone Unavailable Primary Care Provider Unavailabl e Encounter Details Date Type Department Care Team (Late st Contact Info) Description 09/05/2002 12:19 EST Hospital Encounter [address] [address] Willam Eng MD [address] [place] [address] Social History Tobacco Use Types Packs/Day Years [...]
--- OUTSIDE RECORDS SUMMARY | 2024-09-10 17:55 | XMS_ITS | Encounter Summary ---
Author Organization [facility] Address [address] [place] [address] Care Team Providers Care Insurance Underwriting Assistant Name Role Phone Unavailable Primary Care Provider Unavailabl e Encounter Details Date Type Department Care Team (Late st Contact Info) Description 06/25/1999 9:59 EDT Hospital Encounter [facility] [address] [place] [address] Naheed Eller MD [address] [facility], [address] [place] [phone] Social History Tobacco Use Types Packs/Day Years [...]
--- OUTSIDE RECORDS SUMMARY | 2024-09-10 17:55 | XMS_ITS | Encounter Summary ---
Author Organization [facility] Address [address] [place] [address] Care Team Providers Care Manager Integrated Name Role Phone Unavailable Primary Care Provider Unavailabl e Encounter Details Date Type Department Care Team (Latest Contact Info) Description 08/26/2002 10:29 EST - 08/26/2002 11:[address] [facility] - Other [address] [place] [address] Willam Eng MD [address] [place] [address] Unknown, Provider, Discharge Disposition: Auto Discharge Social [...]
--- OUTSIDE RECORDS SUMMARY | 2024-09-10 17:55 | XMS_ITS | Encounter Summary ---
Author Organization [facility] Address [address] [place] [address] Care Team Providers Care Agency Service Representative Name Role Phone Unavailable Primary Care Provider Unavailabl e Encounter Details Date Type Department Care Team (Late st Contact Info) Description 06/14/1999 12:43 EDT Hospital Encounter [facility] [address] [place] [address] Naheed Eller MD [address] [facility], [address] [place] [phone] Social History Tobacco Use Types Packs/Day Years [...]
--- OUTSIDE RECORDS SUMMARY | 2024-09-10 17:55 | XMS_ITS ---
Author Organization Unknown Address [address] [place] [phone] Phone Care Team Providers Care Prom Burn Off Operator Name Role Phone GREGORY FERRARA MD Attending Renetta GOMEZ Unavailable MELINDA VASQUEZ Primary Unavailable Results SED RATE - Collect Date/Time : 03/20/2021 20:56 [facility] ID: [id number] [address] [place] [address], [address] LOINC: 4537-7 Test Value Unit Reference Range Code Code System Flag SED. RATE 13 mm/hr L=0 H=30 4537-7 LOINC C REACTIVE PROTEIN HIGH SENS ITIVITY - Collect Date/Time: 03/20/2021 20:56 [facility] ID: [id number] [address] [place] [address], [address] LOINC: 73278-6 Test Value Unit Reference Range Code Code System Flag CRP-HIGH SENS. 12.23 mg/L L=0.00 H=3.00 56181-3 LOINC H CRP-HIGH SENS 1.22 mg/dL L=0.00 H=0.30 55734-8 LOINC H COMPREHENSIVE METABOLIC PANE L (CMP) - Collect Date/Time: 03/20/2021 20:56 [facility] ID: [id number] [address] [place] [address], [address] LOINC: 64078-6 Test Value Unit Reference Range Code Code [...] H=34 2028-9 LOINC ANION GAP 8.9 mmol/L 60378-5 LOINC CALCIUM SERUM 8.9 mg/dL L=8.2 H=10.2 12642-2 LOINC BILIRUBIN TOTAL 0.4 mg/dL L=0.0 H=1.3 1975-2 LOINC ALK. PHOS. 95 U/L L=46 H=116 6768-6 LOINC SGOT (AST) 15 U/L L=15 H=37 1920-8 LOINC SGPT (ALT) 30 U/L L=12 H=78 1742-6 LOINC TOTAL PROTEIN 8.0 gm/dL L=6.0 H=8.0 2885-2 LOINC ALBUMIN 3.8 gm/dL L=3.4 H=5.0 1751-7 LOINC AGE 50 years eGFR (non-Afr.Amer.) 75 mL/min 14568-6 LOINC eGFR (Afr-Citizen [place]) 91 mL/min 19889-9 LOINC CBC W/ DIFFERENTIAL - Collec t Date/Time: 03/20/2021 20:56 [facility] ID: [id number] [address] [place], [place], [address] LOINC: 10947-5 Test Value Unit Reference Range Code Code System Flag WBC 10.29 th/cmm L=5.00 H=10.00 6690-2 LOINC H NEUT % 56.3 % L=40.0 H=80.0 LYMPH % 34.2 % L=10.0 H=50.0 MONO % 6.3 % L=2.0 H=12.0 76050-2 LOINC EOS % 2.3 % L=0.0 H=8.0 BASO % 0.6 % L=0.0 H=3.0 IG % 0.3 % L=0.0 H=1.1 2514-8 LOINC NRBC % 0.0 % L=0.0 H=0.0 30287-7 LOINC NEUT abs count 5.8 th/cmm L=1.6 H=8.4 751-8 LOINC LYMPH abs count 3.5 th/cmm L=1.5 H=4.0 731-0 LOINC MONO abs count 0.7 th/cmm L=0.2 H=1.0 742-7 LOINC EOS abs count 0.2 th/cmm L=0.0 H=0.5 711-2 LOINC BASO abs count 0.1 th/cmm L=0.0 H=0.2 704-7 LOINC IG abs count 0.0 th/cmm L=0.0 H=0.1 93457-1 LOINC NRBC abs count 0.0 mil/cmm L=0.0 H=0.0 25578-2 LOINC RBC 4.78 mil/cmm L=3.90 H=5.40 789-8 [...] D Sunday, March 21, 2021 1:45:43 PM [id number] Electronically Reviewed and Signed By: NEHA MOTLEY M.D. RADIOLOGIST 03/22/21 19:18 Copy for: GREGORY FERRARA MD via modem DISCHARGED Social History Type Status Start Date End Date Code Code Syst em Smoking History Never smoker (Never Smoked) 538775175 SNOMED CT Sex Female Medications Medication Start Date End Date Route Frequency Dose Code Code System Medication Instructions Home Meds Aspir Low 81MG Oral Tablet, Enteric Coated 01/03/2019 10/13/2022 ORAL DAILY 81 MILLIGRAMS 8859498 RxNorm TAKE 81 MILLIGRAMS ORAL DAILY LANTUS [...] Tablet, Extended Release 01/03/2019 10/13/2022 ORAL DAILY 7374065 RxNorm TAKE 000 MILLIGRAMS ORAL DAILY Assessment [...] Date Status Code Code System DIABETES active 85499860 SNOMED-CT HIGH CHOLESTEROL active 53874770 SNO MED-CT ANXIETY active 00827951 SNOMED-CT Allergies and Adverse Reactions Allergy Substance Reaction Severity Start Date Concern Status Co de Code System No Known Drug Allergies Active 110957683 SNOMED-CT Plan of Treatment MRI LOWER EXT [...]
--- OUTSIDE RECORDS SUMMARY | 2024-09-10 17:55 | XMS_ITS | Encounter Summary ---
Author Organization [facility] Address [address] [place] [address] Care Team Providers Care Shallot Cleaner Name Role Phone Unavailable Primary Care Provider Unavailabl e Encounter Details Date Type Department Care Team (Late st Contact Info) Description 06/21/1999 12:51 EDT Hospital Encounter [address] [address] Naheed Eller MD [address] [facility], [address] [place] [phone] Social History Tobacco Use Types Packs/Day Years [...]
--- OUTSIDE RECORDS SUMMARY | 2024-09-10 17:55 | XMS_ITS ---
Author Organization Unknown Address [address] [place] [phone] Phone Care Team Providers Care Lamp Wirer Name Role Phone PATTIE MARIO MD Attending Unavailable MELINDA VASQUEZ Primary Unavailable Social History Type Status Start Date End Date Code Code Syst em Smoking History Never smoker (Never Smoked) 566181784 SNOMED CT Sex Female Medications Medication Start Date End Date Route Frequency Dose Code Code System Medication Instructions Home Meds Aspir Low 81MG Oral Tablet, Enteric Coated 01/03/2019 10/13/2022 ORAL DAILY 81 MILLIGRAMS 7322715 RxNorm TAKE 81 MILLIGRAMS ORAL DAILY LANTUS [...] Tablet, Extended Release 01/03/2019 10/13/2022 ORAL DAILY 4642596 RxNorm TAKE 000 MILLIGRAMS ORAL DAILY Assessment [...] Date Status Code Code System DIABETES active 57481914 SNOMED-CT HIGH CHOLESTEROL active 48505267 SNO MED-CT ANXIETY active 12470984 SNOMED-CT Allergies and Adverse Reactions Allergy Substance Reaction Severity Start Date Concern Status Co de Code System No Known Drug Allergies Active 970471299 SNOMED-CT Plan of Treatment MRI LOWER EXT [...]
--- OUTSIDE RECORDS SUMMARY | 2024-09-10 17:55 | XMS_ITS | Encounter Summary ---
Author Organization [facility] Address [address] [place] [address] Care Team Providers Care Manager Registration Name Role Phone Glenn Epperson MD Primary Care Provider Un available Encounter Details Date Type Department Care Team (Late st Contact Info) Description 07/18/2011 Historical Results Only [facility] - Main [address] [address] Letha Thompson MD [address] [place] [address], [address] [place] [address] Social History Tobacco Use Types [...] (07/18/2011) 07/18/2011 07/19/2011 9:4 6 EST Narrative [facility] - 07/22/2011 17:46 EST ----- ------- Name: ODILONSTONE ? : 70 ?Age/Sex: 48/F ?Unit#: [id number] ? Loc: AGO ? Status: REG POV ?? Reg Date: 07/18/11 ? Pt.Phone Number: ? ----- ------- Specimen: [id number] ?STATUS: SOUT ?Spec Date:07/18/11 ? Physician Copies: ?Letha Thompson MD ? Tissues: ? Cervical/Endo Pap ?Ciro Best DO CPT: 23114 ?? Units: ??1 ----- ------- ? CYTOLOGY [...] diagnosis. Test Performed by [facility], [address] [place] [address] Rn First Assistant: Shahida Melendez MD PHD ----- ------- us Letha Thompson MD PATHOLOGY ORDERABLES Final Resu lt [facility] documented in this encounter Visit Diagnoses Not on filedocumented in this encounter Care Teams Manager Registration Relationship Specialty Start Date End Date Glenn Epperson MD PCP - General 07/15/15 02/28/21 documented as of this encounter
[2024-09-10 21:37] LABS: COMMENT (LAB VIEW ONLY) 196.38 mg/dL; Microalb ug/mg Crea 4.5 ug/mg Cr
== END 2024-09-10 17:50 | disposition home or self-care (01) ==
LOC: NCHCN 17:49
PROVIDERS: PCP Nurse Practitioner Family; Visit Provider Nurse Practitioner Family
DX: E11.9 Type 2 diabetes mellitus without complications (principal)
CPT/HCPCS: 82043; 82570

== ENCOUNTER 2025-07-08 10:50 | Outpatient (REF) | payer OTHER, SELFPAY ==
[2025-07-08 16:15] LABS: Hemoglobin A1C 6.8 % (<5.7)
[2025-07-08 16:28] LABS: Anion Gap 10.5 mmol/L (3-11); BUN 7 mg/dL (7-18); CO2 26.5 mmol/L (21.0-32.0); Calcium 9.5 mg/dL (8.5-10.1); Chloride 102 mmol/L (98-107); Cholesterol 161 mg/dL (<200); Glucose 96 mg/dL (74-106); HDL Cholesterol 69 mg/dL (>or=50); Potassium 4.3 mmol/L (3.5-5.1); Sodium 139 mmol/L (136-145)
[2025-07-08 16:54] LABS: Microalb ug/mg Crea 3.6 ug/mg Cr
[2025-07-09 11:42] LABS: Hepatitis C Ab w Rflx HCV PCR Negative (Negative)
[2025-07-09 13:10] LABS: HIV-1/2 Ag & Ab Screen Negative (Negative)
== END 2025-07-08 10:51 | disposition home or self-care (01) ==
LOC: NCHCN 10:50
PROVIDERS: PCP Nurse Practitioner Family; Visit Provider Nurse Practitioner Family
DX: E11.9 Type 2 diabetes mellitus without complications (principal); Z11.4 Encounter for screening for human immunodeficiency virus [HIV]; Z11.59 Encounter for screening for other viral diseases; I10 Essential (primary) hypertension
CPT/HCPCS: 80048; 80061; 86803; 87389; 82043; 82570; 83036